=== PATIENT | female | born 1930 | race Caucasian/White ===

== ENCOUNTER 2017-05-21 16:06 | Emergency (ER) | payer MEDICARE, OTHER ==
[~2017-05-21] VITALS: Ht 157.5 cm; Wt 55.0 kg
[~2017-05-21 16:06] MED LIST: ACET1TAB17 PO; COUM2.5T17 PO; DOKTAB2 PO; NICO14DI20 TD; NORCOTAB PO; VITA10002 PO; VITA200015 PO; VITAD1000T PO
[2017-05-21] MEDS ORDERED: TORS10TA3 (16:28)
[2017-05-21] MEDS ORDERED: methylPREDNISolone INJ 40 MG/1 ML VIAL (J2920) IV ONE (18:00)
[2017-05-21] MEDS ORDERED: FAMOTIDINE IV BAG 20 MG in APPROPRIATE DILUENT 1 EA IV ONE (18:00)
[2017-05-21 18:48] VITALS: BP 171/79
[2017-05-21] MEDS ORDERED: PRED20TA PO (18:52)
[2017-05-21] MEDS ORDERED: BENA25CA4 PO (18:52)
[2017-05-21] MEDS ORDERED: PEPC1TAB4 PO (18:53)
== END 2017-05-21 19:01 | disposition home or self-care (01) ==
LOC: EDBD 16:06 → M ED 16:06
DX: S21.251A Open bite of right back wall of thorax without penetration into thoracic cavity, initial encounter (principal); S21.159A Open bite of unspecified front wall of thorax without penetration into thoracic cavity, initial encounter; S41.151A Open bite of right upper arm, initial encounter; S41.152A Open bite of left upper arm, initial encounter; S71.151A Open bite, right thigh, initial encounter; X58.XXXA Exposure to other specified factors, initial encounter; Y92.89 Other specified places as the place of occurrence of the external cause; Y99.9 Unspecified external cause status; Y93.9 Activity, unspecified; Z79.899 Other long term (current) drug therapy
CPT/HCPCS: 96365; 96375; 99283; J2920

== ENCOUNTER → 2017-07-10 | Outpatient (CLI) | payer MEDICARE, OTHER ==
[~2017-07-10] MED LIST changes: +BENA25CA4 PO; +PEPC1TAB4 PO; +PRED20TA PO; +TORS10TA3
--- NOTE | 2017-07-10 12:28 | REP ---
LUMBAR SPINE, FIVE VIEWS: HISTORY: Contusion. There is no acute fracture or subluxation. The lumbar intervertebral discs are decreased in height consistent with disc degeneration. Osteophytes are present on L2-4. There is narrowing of the L5-S1 facet joints. The bony structure is osteopenic. IMPRESSION: Degenerative change as described above. Signed by Gorge Dunn MD 07/10/2017 12:37 P
--- NOTE | 2017-07-10 12:29 | REP ---
LEFT HIP, TWO VIEWS: HISTORY: Contusion. There is no acute fracture or dislocation. There is narrowing of the joint space. The bony structure is osteopenic. IMPRESSION: There is no acute fracture or dislocation. Signed by Gorge Dunn MD 07/10/2017 12:37 P
== END ==
LOC: M WUC 11:25
PROVIDERS: ATTEND Physician Assistant
DX: S70.02XA Contusion of left hip, initial encounter (principal); S30.0XXA Contusion of lower back and pelvis, initial encounter; X58.XXXA Exposure to other specified factors, initial encounter; Y93.9 Activity, unspecified; Y92.9 Unspecified place or not applicable; Y99.8 Other external cause status

== ENCOUNTER → 2017-11-07 | Outpatient (REF) | payer MEDICARE, OTHER ==
[2017-11-07 17:02] LABS: VITAMIN B12 LEVEL 546 PG/ML (247-911)
== END ==
LOC: M LAB REF 16:22
DX: D51.9 Vitamin B12 deficiency anemia, unspecified (principal)
CPT/HCPCS: 82607

== ENCOUNTER → 2017-12-10 | Outpatient (REF) | payer MEDICARE, OTHER | LOC: M LAB REF 13:24 | DX: N39.3 Stress incontinence (female) (male) (principal) | CPT/HCPCS: 87086 ==

== ENCOUNTER 2018-08-25 14:27 | Observation (INO) | payer MEDICARE, OTHER ==
[~2018-08-25] VITALS: Ht 157.5 cm; Wt 56.3 kg
[~2018-08-25 14:27] MED LIST changes: -ACET1TAB17 PO; +ACET1TAB55 PO; -PEPC1TAB4 PO; +PEPC1TAB5 PO; -TORS10TA3; +TORS10TA3 PO
[2018-08-25] MEDS ORDERED: ACETAMINOPHEN TAB 650MG DOSE (2X325MG) PO ONE (16:15)
[2018-08-25] MEDS ORDERED: NS 1,000 ML IV SCH (17:34)
[2018-08-25] MEDS ORDERED: fentaNYL 100 MCG/2 ML INJECTION (J3010) IV ONE ×3 (17:45→19:30)
--- NOTE | 2018-08-25 18:31 | REP ---
Left shoulder two views: There is inferior anterior dislocation of the humeral head. No fracture is identified on these two views. The acromioclavicular joint is widened. Electronically Signed by Fercho James MD 08/25/2018 06:22 P
[2018-08-25] MEDS: PROPOFOL 200 MG/20 ML VIAL IV PRN ×2 (18:32→20:02)
--- NOTE | 2018-08-25 19:19 | REP ---
Portable left shoulder, single AP view, 06:56 p.m.: There is inferior anterior dislocation of the humeral head. Electronically Signed by Fercho James MD 08/25/2018 07:11 P
[2018-08-25] MEDS ORDERED: PROPOFOL 200 MG/20 ML VIAL IV PRN (19:30)
[2018-08-25] MEDS ORDERED: ACETAMINOPHEN TAB 650MG DOSE (2X325MG) PO PRN (21:00)
[2018-08-25] MEDS: SENOKOT S TAB PO SCH (21:00)
[2018-08-25] MEDS ORDERED: TORSEMIDE 10 MG TABLET PO PRN (21:00)
--- NOTE | 2018-08-25 21:13 | REP ---
Left shoulder, 08:14 p.m., two views, post reduction: The humeral head dislocation has been satisfactorily reduced and the humeral head is now in satisfactory position in relation to the glenoid. There are faintly visible calcifications along the lateral margin of the humeral head. Electronically Signed by Fercho James MD 08/25/2018 09:06 P
--- NOTE | 2018-08-25 21:25 | HPE ---
DATE OF ADMISSION: 08/25/2018 PRIMARY CARE PROVIDER: Dr. Morgan ATTENDING PHYSICIAN: Dr. Meza CHIEF COMPLAINT: Left shoulder pain. HISTORY OF THE PRESENT ILLNESS: The patient is an 88-year-old white female without significant past medical history who came to the hospital for evaluation of left shoulder pain. History is provided by herself as well as by her neighbor. Per her neighbor, she was doing fine until today. She was walking with her dog and then she fell, and she complained of a lot of pain in her left shoulder. She called her neighbor and neighbor called 911, and she was brought to the emergency room (ER) here for further evaluation. In the ER she had an x-ray done, which demonstrated she had a left shoulder dislocation. Initially ER attending, Dr. Mehdi Gramajo, tried to do a reduction, which failed, and then orthopedics was called and she had successful left shoulder dislocation reduction externally under general anesthesia. Due to this reason, she received several doses of pain medication as well as intravenous (IV) sedation, so medicine service was called for admission. REVIEW OF SYSTEMS: Denies fever. No chills. No headache. No blurred vision. No shortness of breath. No chest pain. No abdominal pain. No diarrhea. No tingling, numbness, weakness in the arms or lower extremities. All other systems were reviewed but negative. PAST MEDICAL HISTORY: Chronic right lower extremity edema. PAST SURGICAL HISTORY: Right hip replacement. Hysterectomy. Bilateral cataract surgery. ALLERGIES: Allergic to PENICILLIN. MEDICATIONS: - torsemide 10 mg by mouth daily FAMILY HISTORY: Reviewed. Both parents . There is no family history of coronary artery disease or diabetes. PHYSICAL EXAMINATION: VITAL SIGNS: Temperature 98.2 and heart rate 81, respirations 16, blood pressure 180/86, oxygen saturation 100% on 2 liters of oxygen supplement. GENERAL: She is awake, alert, oriented times three. She is not in acute distress. HEENT: Atraumatic. Pupils are equal, round, reactive to light. No jaundice. Extraocular muscles intact. Ears, nose and throat are normal. Mouth: Mucosa a little bit dry. NECK: No jugular venous distention (JVD), no bruits. LUNGS: Clear. No crackles, no wheezing. HEART; S1, S2, regular. No murmur. ABDOMEN: Soft. Bowel sounds positive. Nontender. LOWER EXTREMITIES: She has swelling in the right lower extremity, which is chronic per the patient as well as her healthcare proxy. NEUROLOGIC: Nonfocal. SKIN: No rash. 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 ASSESSMENT AND PLAN: An 88-year-old female who presents to the hospital with left shoulder pain after a fall. X-ray demonstrated left shoulder dislocation, which was reduced in the ER. She will be admitted for observation. Will get a physical therapy (PT), occupational therapy (OT) evaluation in the morning to decide whether she can go home or if she needs short-term rehab. She is DO NOT RESUSCITATE, DO NOT INTUBATE. MTDD
[2018-08-25] MEDS: PERCOCET 5MG/325MG TAB PO PRN (21:51)
--- NOTE | 2018-08-25 21:53 | ER ---
ER CONSULTATION: DATE OF SERVICE: 08/25/2018 CHIEF COMPLAINT: Left shoulder pain and deformity. HISTORY OF PRESENT ILLNESS The patient states that she was pulled by some dogs earlier today, isolated injury to her left shoulder. She is somewhat confused and disoriented which apparently is at her baseline. She is brought in by her healthcare proxy who is also source of information. The patient states that she only has pain and issues with her left shoulder at this time. She does have history of a left shoulder surgery decades ago. 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 Certainly, it is very painful; where it is usually she has no pain. PAST SURGICAL HISTORY: As above. EXAMINATION: She is awake and alert. She is responsive and she is answering questions, resting comfortably in bed. Focused examination of her left shoulder: There is deformity consistent with anterior inferior shoulder dislocation with the humeral head palpable in the axilla. There is a large healed deltopectoral incision which appears very old and is well healed. She has decreased sensation to light touch in the axillary nerve distribution. Otherwise she is fully neurovascular intact throughout the left upper extremity radial, median, ulnar nerve distribution with 2+ radial pulse. She is able to make a full composite fist and is able to bend and extend her elbow freely. Her left forearm, wrist, hand and elbows is grossly atraumatic and nontender. X-rays of the left shoulder show anterior inferior glenohumeral dislocation. ASSESSMENT: Left shoulder anterior inferior glenohumeral dislocation. PLAN: Dr. Gramajo from the emergency department called me after they had already attempted to close reduction under propofol sedation. This was done by himself and one of the other emergency room physicians. They were unable to achieve closed reduction and so they did contact me to evaluate the patient which I came in and promptly did. I discussed the risks and benefits of going forward with another attempt at closed reduction here the emergency department with the patient and her caregiver. All of their questions were answered and they did sign the consent for the procedure in my presence. I did discuss explicitly the risk of fracture and redislocation and other complications and they did understand. Conscious sedation under propofol as provided by Dr. Gramajo and I was able to achieve a closed reduction which felt quite stable with a little difficulty using a modified Milch technique. Post reduction axillary lateral and AP x-rays showed satisfactory reduction of the glenohumeral joint. She was placed in a sling and upon emerging from sedation she did feel much more comfortable in her left upper extremity. The shoulder pain and discomfort was significantly decreased and she remained somewhat insensate in the axillary nerve distribution but otherwise 2+ radial pulse and neurovascularly intact distally. PLAN: Plan at this time is to monitor her until she is fully cleared from the sedation. At the point this may be discharged home with a sling and activity restrictions to protect the left shoulder; understand that it is certainly much more prone to instability and redislocation at this time. Followup with orthopedic clinic in the next few days for repeat examination or followup earlier as needed. All of te patient and the caregivers questions were answered and they are satisfied with treatment at this time.
[2018-08-25] MEDS ORDERED: cloNIDine 0.2 MG TAB PO ONE (22:00)
[2018-08-25 22:55] VITALS: BP 186/98
[2018-08-26] MEDS ORDERED: **hydrALAZINE HCL** 25 MG TAB PO ONE (05:45)
[2018-08-26 06:00] VITALS: BP 190/98
[2018-08-26] MEDS: SENOKOT S TAB PO SCH ×3 (07:57→21:03)
[2018-08-26 08:40] LABS: HEMATOCRIT 41.7 % (36.0-47.0); HEMOGLOBIN 13.7 g/dl (12.0-15.5); MEAN CORPUSCULAR HEMOGLOBIN 32.3 pg (27.0-33.0); MEAN CORPUSCULAR HGB CONC 32.9 g/dl (32.0-36.5); MEAN CORPUSCULAR VOLUME 98.3 fl (80.0-96.0); PLATELET COUNT, AUTOMATED 142 10^3/uL (150-450); RED BLOOD COUNT 4.24 10^6/uL (4.00-5.40); WHITE BLOOD COUNT 8.4 10^3/uL (4.0-10.0)
[2018-08-26 08:55] LABS: CALCIUM LEVEL 8.6 MG/DL (8.8-10.2); CREATININE FOR GFR 0.95 MG/DL (0.55-1.30); GLOMERULAR FILTRATION RATE 59.2 (>32); POTASSIUM SERUM 4.2 MEQ/L (3.5-5.1); TOTAL PROTEIN 5.6 GM/DL (6.4-8.2)
--- NOTE | 2018-08-26 10:46 | REP ---
Duplex extremity venous ultrasound: Bilateral lower extremity. History: Edematous legs. Findings: The deep veins are anechoic and fully compressible from the groin to the popliteal fossa in the left and right lower extremity. Color flow imaging is homogeneous. Spectral Doppler interrogation demonstrates intact respiratory variation in flow and normal manual augmentation of flow. There is no evidence of deep vein thrombosis. Impression: Negative bilateral lower extremity duplex venous ultrasound. No evidence of deep vein thrombosis. Electronically Signed by Yury Elise MD 08/26/2018 10:37 A
[2018-08-26] MEDS: ENOXAPARIN 30 MG/0.3 ML SYR (J1650) SC SCH (10:55)
[2018-08-26] MEDS: PERCOCET 5MG/325MG TAB PO PRN ×2 (10:56→19:00)
--- NOTE | 2018-08-26 12:23 | IPNPDOC ---
Subjective Date Seen The patient was seen on 08/26/18. Subjective Chief Complaint/HPI Patient seen and examined at the bedside. States that she is feeling relatively well and that her shoulder joint is sore but the pain is manageable. Objective Physical Examination General Exam: Positive: Alert, Cooperative, No Acute Distress ENT Exam: Positive: Atraumatic, Mucous membr. moist/pink Neck Exam: Negative: JVD Chest Exam: Positive: Clear to auscultation, Normal air movement Heart Exam: Positive: Rate Normal, Normal S1, Normal S2 Abdomen Exam: Positive: Soft; Negative: Tenderness Extremity Exam: Positive: Other (Left shoulder in a sling. ROM limited 2/2 recent dislocation/closed reduction. Extremity neurovascularly intact distally.); Negative: Tenderness, Swelling Assessment /Plan Plan/VTE VTE Prophylaxis Ordered?: Yes Plan Left Shoulder Joint Dislocation s/p Closed Reduction Orthopedic Surgery on board Pain meds as ordered PT ordered for functional optimization Leg Swelling 2/2 Chronic Lymphedema U/S of the Lower extremities negative for DVT Torsemide prn DVT Prophylaxis Lovenox SC VS, I&O, 24H, Fishbone Vital Signs/I&O Vital Signs Date Time Temp Pulse Resp B/P (MAP) Pulse Ox O2 Delivery O2 Flow Rate FiO2 08/26/18 11:26 17 Room Air 08/26/18 06:25 190/98 08/26/18 06:00 97.3 84 99 08/25/18 18:37 2.0 I&O- Last 24 Hours up to 6 AM 08/26/18 06:00 Intake Total 720 ml Balance 720 ml Laboratory Data 24H LABS Laboratory Tests 2 08/26/18 08:19: Nucleated Red Blood Cells % (auto) 0.2H, Anion Gap 6L, Glomerular Filtration Rate 59.2, Blood Urea Nitrogen 17, Creatinine 0.95, Sodium Level 140, Potassium Level 4.2, Chloride Level 105, Carbon Dioxide Level 29, Calcium Level 8.6L, Aspartate Amino Transf (AST/SGOT) 30, Alanine Aminotransferase (ALT/SGPT) 21, Alkaline Phosphatase 87, Total Bilirubin 1.0, Total Protein 5.6L, Albumin 3.0L, Albumin/Globulin Ratio 1.15 CBC/BMP Laboratory Tests 08/26/18 08:19 Red Blood Count 4.24, Mean Corpuscular Volume 98.3 H, Mean Corpuscular Hemoglobin 32.3, Mean Corpuscular Hemoglobin Concent 32.9, Red Cell Distribution Width 12.9, Calcium Level 8.6 L, Aspartate Amino Transf (AST/SGOT) 30, Alanine Aminotransferase (ALT/SGPT) 21, Alkaline Phosphatase 87, Total Bilirubin 1.0, Total Protein 5.6 L, Albumin 3.0 L LUIS MIRZA MD Aug 26, 2018 12:23
[2018-08-26 14:00] VITALS: BP 162/72
--- NOTE | 2018-08-26 15:14 | REP ---
Left elbow single oblique view: The study is suboptimal. Complete left elbow series is recommended if the patient's clinical condition will permit. Electronically Signed by Fercho James MD 08/25/2018 08:59 P
[2018-08-26 22:00] VITALS: BP 152/70
[2018-08-27 06:00] VITALS: BP 176/88
[2018-08-27] MEDS: PERCOCET 5MG/325MG TAB PO PRN (08:06)
[2018-08-27] MEDS ORDERED: amLODIPine 5 MG TAB PO SCH (09:00)
[2018-08-27] MEDS: SENOKOT S TAB PO SCH (09:00)
[2018-08-27 10:10] VITALS: BP 129/86
[2018-08-27] MEDS: ENOXAPARIN 30 MG/0.3 ML SYR (J1650) SC SCH (10:11)
[2018-08-27 10:20] VITALS: BP 129/86
[2018-08-27] MEDS ORDERED: AMLO5TAB6 PO (11:38)
[2018-08-27] MEDS ORDERED: PERCOCET PO (11:38)
--- NOTE | 2018-08-27 12:37 | DS.PDOC ---
Discharge Summary General Date of Admission Aug 25, 2018 at 20:51 Date of Discharge 08/27/18 Specialist/Consultants Involve: JAKE PERERA MD Discharge Summary PROCEDURES PERFORMED DURING STAY: Closed reduction of left shoulder joint dislocation by Dr. Perera of Orthopedic Surgery ADMITTING/DISCHARGE DIAGNOSES: Left shoulder joint dislocation status post closed reduction Hypertension COMPLICATIONS/CHIEF COMPLAINT: Dislocation Of Left Shoulder Joint. HISTORY OF PRESENT ILLNESS: . 88-year-old female with past medical history of chronic lower extremity edema presented to the ER after she felt left shoulder pain following a mechanical fall when walking her dogs. The patient denied any acute complaints of trauma to the head, headache, fevers, chills, chest pain, palpitations, abdominal pain, jerking activity, or any prodromal symptoms that was suggestive syncopal event. In the ER, the patient was noted to have a dislocated left shoulder, and attempts made to reduce the shoulder in the ER were unsuccessful. Orthopedic surgery was contacted, and performed a closed reduction of the patient's left shoulder. The patient was admitted to the hospitalist service for observation. During hospitalization, the patient's pain was well managed. Of note, the patient was noted to be significantly hypertensive despite not being in pain. The patient was started on 5 mg of Norvasc. I did discuss the risks associated with taking Norvasc, and asked that the patient follow-up with her primary care physician within 7 days for follow-up. The patient has been cleared by physical therapy to return home. At this time, the patient has been instructed to follow- up with primary care physician within 7 days, and with orthopedic surgery as indicated. Lastly, patient has been advised to return to the ER for any acute emergencies. DISCHARGE MEDICATIONS: Please see below. ALLERGIES: Please see below. PHYSICAL EXAMINATION ON DISCHARGE: VITAL SIGNS: Please see below. General Exam: Positive: Alert, Cooperative, No Acute Distress ENT Exam: Positive: Atraumatic, Mucous membr. moist/pink Neck Exam: Negative: JVD Chest Exam: Positive: Clear to auscultation, Normal air movement Heart Exam: Positive: Rate Normal, Normal S1, Normal S2 Abdomen Exam: Positive: Soft; Negative: Tenderness Extremity Exam: Positive: Other (Left shoulder in a sling. ROM limited 2/2 recent dislocation/closed reduction. Extremity neurovascularly intact dista lly.); Negative: Tenderness, Swelling LABORATORY DATA: Please see below. IMAGING: Duplex extremity venous ultrasound: Bilateral lower extremity. History: Edematous legs. Findings: The deep veins are anechoic and fully compressible from the groin to the popliteal fossa in the left and right lower extremity. Color flow imaging is homogeneous. Spectral Doppler interrogation demonstrates intact respiratory variation in flow and normal manual augmentation of flow. There is no evidence of deep vein thrombosis. Impression: Negative bilateral lower extremity duplex venous ultrasound. No evidence of deep vein thrombosis. Left elbow single oblique view: The study is suboptimal. Complete left elbow series is recommended if the patient's clinical condition will permit. Left shoulder two views: There is inferior anterior dislocation of the humeral head. No fracture is identified on these two views. The acromioclavicular joint is widened. PROGNOSIS: Fair ACTIVITY: As tolerated. DIET: 2 g low sodium diet DISCHARGE PLAN: DISPOSITION: . Home DISCHARGE INSTRUCTIONS: At this time, the patient has been instructed to follow-up with primary care physician within 7 days, and with orthopedic surgery as indicated. Lastly, patient has been advised to return to the ER for any acute emergencies. DISCHARGE CONDITION: Stable. TIME SPENT ON DISCHARGE: Greater than 30 minutes. Vital Signs/I&Os Vital Signs Date Time Temp Pulse Resp B/P (MAP) Pulse Ox O2 Delivery O2 Flow Rate FiO2 08/27/18 10:20 97.8 84 18 129/86 (100) 97 Room Air 08/25/18 18:37 2.0 I&O- Last 24 Hours up to 6 AM 08/27/18 06:00 Intake Total 1260 ml Balance 1260 ml Discharge Medications Scheduled Amlodipine Besylate (Amlodipine Besylate) 5 Mg Tab, 5 MG PO DAILY Scheduled PRN Oxycodone/Acetaminophen (Percocet 5MG/325MG Tablet) 1 Tab Tab, 1 TAB PO Q4HP PRN for MODERATE PAIN (PS 5-7) Torsemide (Torsemide) 10 Mg Tab, 10 MG PO DAILY PRN for SWELLING, (Reported) Allergies Coded Allergies: Penicillins (Unverified Allergy, Unknown, UNKNOWN , 11/07/15) LUIS MIRZA MD Aug 27, 2018 12:37
== END 2018-08-27 12:45 | disposition home health service (06) ==
LOC: EDBD 14:27 → M ED 14:27 → EDSEX 14:27 → M ED INP 20:51 → M MS5PR 22:55
PROVIDERS: ADMIT Hospitalist; ATTEND Internal Medicine
DX: S43.005A Unspecified dislocation of left shoulder joint, initial encounter (principal); W19.XXXA Unspecified fall, initial encounter; Y93.K1 Activity, walking an animal; Y99.8 Other external cause status; Y92.89 Other specified places as the place of occurrence of the external cause; R60.0 Localized edema; I10 Essential (primary) hypertension; Z79.899 Other long term (current) drug therapy; Z88.0 Allergy status to penicillin
CPT/HCPCS: 23655; 36415; 73020; 73030; 73070; 80053; 85027; 93041; 93970; 94760; 96372; 96374; 96375; 96376; 97116; 97161; 97165; 97530; 97535; 99285; G8978; G8979; G8980; J1650; J3010

== ENCOUNTER 2019-06-13 19:47 | Inpatient (IN) | payer MEDICARE, OTHER ==
[~2019-06-13] VITALS: Ht 157.5 cm; Wt 54.0 kg
[~2019-06-13 19:47] MED LIST changes: +AMLO5TAB6 PO; +CYAN100049 PO; +HYDR-3715 PO; -NORCOTAB PO; +PERCOCET PO; -VITA10002 PO
[2019-06-13 20:23] LABS: BASO # 0.1 10^3/uL (0.0-0.2); BASO % 0.7 % (0.0-1.0); EOS # 0.1 10^3/uL (0.0-0.5); EOS % 0.8 % (0.0-3.0); HEMATOCRIT 41.6 % (36.0-47.0); HEMOGLOBIN 13.8 g/dl (12.0-15.5); LYMPH # 1.5 10^3/uL (1.5-5.0); LYMPH % 20.5 % (24.0-44.0); MEAN CORPUSCULAR HEMOGLOBIN 32.9 pg (27.0-33.0); MEAN CORPUSCULAR HGB CONC 33.2 g/dl (32.0-36.5); MEAN CORPUSCULAR VOLUME 99.3 fl (80.0-96.0); MONO # 0.6 10^3/uL (0.0-0.8); MONO % 8.2 % (0.0-5.0); NEUTROPHILS % 68.4 % (36.0-66.0); PLATELET COUNT, AUTOMATED 173 10^3/uL (150-450); RED BLOOD COUNT 4.19 10^6/uL (4.00-5.40); WHITE BLOOD COUNT 7.3 10^3/uL (4.0-10.0)
[2019-06-13 20:33] LABS: INR 1.24; PROTHROMBIN TIME 15.3 SECONDS (11.8-14.0)
[2019-06-13] MEDS ORDERED: MORPHINE 2 MG/ML 1ML SYRINGE (J2270) IV ONE (20:45)
--- NOTE | 2019-06-13 20:51 | REPVR ---
EXAM: CT Head Without Contrast EXAM DATE/TIME: 06/13/2019 8:00 PM CLINICAL HISTORY: 89 years old, female; Pain; Other: Fall; Additional info: Fall, on eloquis TECHNIQUE: Imaging protocol: Computed tomography of the head without contrast. Radiation optimization: All CT scans at this facility use at least one of these dose optimization techniques: automated exposure control; mA and/or kV adjustment per patient size (includes targeted exams where dose is matched to clinical indication); or iterative reconstruction. COMPARISON: No relevant prior studies available. FINDINGS: Brain: No intracranial mass, focal mass effect or midline shift. No acute intracranial hemorrhage. Moderate decreased attenuation in periventricular/centrum semiovale white matter. No focal effacement of cortical sulci to indicate acute cortical infarct. Ventricles: Prominent ventricles and CSF spaces suggest parenchymal volume loss. Bones/joints: No calvarial fracture or destructive process. Sinuses: Visualized paranasal sinuses are unremarkable. Mastoid air cells: Mastoid air cells are normally aerated. Orbits: Visualized globes and orbits are unremarkable. Soft tissues: Right forehead focal extracranial soft tissue swelling. IMPRESSION: 1. Right forehead extracranial scalp hematoma 2. No acute intracranial abnormality. 3. 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 Electronically signed by: Frederick Russell On 06/13/2019 20:50:39 PM
--- NOTE | 2019-06-13 20:52 | REPVR ---
EXAM: CT Cervical Spine Without Contrast EXAM DATE/TIME: 06/13/2019 8:00 PM CLINICAL HISTORY: 89 years old, female; Pain; Other: Fall; Additional info: Fall, on eloquis TECHNIQUE: Imaging protocol: Computed tomography images of the cervical spine without contrast. Radiation optimization: All CT scans at this facility use at least one of these dose optimization techniques: automated exposure control; mA and/or kV adjustment per patient size (includes targeted exams where dose is matched to clinical indication); or iterative reconstruction. COMPARISON: CR SPINE LS COMPLETE 07/10/2017 11:45 AM FINDINGS: Vertebrae: No segmental vertebral malalignment. Vertebral body height is maintained at all levels. No acute fracture. No destructive or blastic cervical spine osseous lesion. 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 Spinal canal narrowing is present at C4-5, C5-6 and C6-7 with moderate osseous neural foraminal stenoses also present secondary to uncovertebral arthropathy Soft tissues: Soft tissues show no concerning abnormality or asymmetry. Lungs: Imaged lung apices demonstrate no concerning abnormality. Pleural space: No apical pneumothorax. Mild apical bullous changes. IMPRESSION: No acute fracture or traumatic segmental cervical malalignment. Electronically signed by: Frederick Russell On 06/13/2019 20:51:52 PM
[2019-06-13 20:57] LABS: CALCIUM LEVEL 9.5 MG/DL (8.8-10.2); CREATININE FOR GFR 1.42 MG/DL (0.55-1.30); GLOMERULAR FILTRATION RATE 37.2 (>32); POTASSIUM SERUM 4.1 MEQ/L (3.5-5.1); THYROID STIMULATING HORMONE 4.69 uIU/ML (0.358-3.740)
[2019-06-13] MEDS ORDERED: POTA10CA32 PO (21:52)
[2019-06-13] MEDS ORDERED: ELIQ5TAB PO (21:52)
[2019-06-13] MEDS ORDERED: TORS10TA3 PO ×2 (21:52)
[2019-06-13] MEDS ORDERED: MORPHINE 4 MG/ML 1ML VIAL/SYRINGE (J2270) IV ONE (22:45)
[2019-06-14] MEDS ORDERED: MOM 30ML SUSPENSION UDC PO PRN (00:30)
[2019-06-14] MEDS ORDERED: MAALOX 30 ML SUSP *UDC PO PRN (00:30)
[2019-06-14 00:39] VITALS: BP 139/85
[2019-06-14] MEDS ORDERED: ONDANSETRON 4MG/2ML VIAL (J2405) IV PRN (01:00)
[2019-06-14] MEDS: DOCUSATE SODIUM 100 MG CAP PO SCH ×3 (01:47→21:12)
[2019-06-14] MEDS: PERCOCET 5MG/325MG TAB PO PRN ×3 (01:47→21:12)
--- NOTE | 2019-06-14 02:21 | HPEPDOC ---
General Date of Admission Jun 14, 2019 at 00:24 Date of Service: Jun 14, 2019 Chief Complaint The patient is a 89-year-old female admitted with a reason for visit of Fall From Standing, Olecranon Fx. Source: Patient, RN/MD, Old records, Other (neighbour) Exam Limitations: No limitations Severity: Moderate History of Present Illness 89 year old female was outside today when she bend forward to flower picker her dog who was having a seizure and lost her balance and fell on her right side hitting her right forehead in the concrete side walk and hit her right shoulder, right elbow and right hip. She did not loose consciousness But she could not get up. She had a life alert on the let wrist but could not move her right hand to press it. She yelled for help was heard by the neighbors and EMS was called. In the ED se was found to have right olecranon fracture. SHe complained of severe 10/10 pain in her right elbow, dull throbbing in nature and minor movement was causing severe muscle spasm. No radiation. She also complained of pain in the right shoulder and forehead. She had a CT head and CT C-spine done which were negative for any acute events. Her Shoulder Xray which i reviewed personally did not show any fracture or dislocation. In the right hip Xray which I reviewed personally showed some calcifications in the soft tissue behind the joint ? avulsion of right acetabulum Vs gluteal injetion granuloma. Awaiting official radiology reads . There is no fracture or displacement of hardware. She was admitted for displaced olecranon fracture. Home Medications Scheduled Apixaban (Eliquis) 5 Mg Tablet, 5 MG PO BID, (Reported) Potassium Chloride (Potassium Chloride) 10 Meq Capsule.er, 10 MEQ PO BID, (Reported) Torsemide (Torsemide) 10 Mg Tablet, 20 MG PO DAILY, (Reported) Scheduled PRN Torsemide (Torsemide) 10 Mg Tablet, 10 MG PO QPM PRN for SWELLING LEGS, (Reported) Allergies Coded Allergies: No Known Allergies (Unverified , 06/13/19) Past Medical History Medical History Chronic bilateral venous stasis and lymphedema CKD 3 Hypertension LEft shoulder dislocation in 2017 H/O DVT left lower extremity in january 2019 Surgical History Right HIP Hemiarthroplasty Status post hysterectomy. Status post left shoulder arthroplasty. Status post left wrist surgery. Status post bilateral cataract surgery. Status Post vein stripping Family History Reviewed with patient . Both parents . There is no family history of coronary artery disease or diabetes. Positive Family history of PAD Social History * Smoker: current smoker Alcohol: Denies Drugs: denies A-FIB/CHADSVASC A-FIB History Current/History of A-Fib/PAF?: No Review of Systems Constitutional: Denies: Chills, Fever, Night Sweats Eyes: Denies: Pain, Vision change ENT: Reports: Other Symptoms (pain in fore head); Denies: Head Aches, Ear Pain, Dysphagia Skin: Reports: Breakdown (ulcer on right leg) Pulmonary: Denies: Dyspnea, Cough Cardiovascular: Denies: Chest Pain, Palpitations, Orthopnea, Paroxysmal Noc. Dyspnea, Lt Headedness Gastrointestinal: Denies: Nausea, Vomiting, Abdominal Pain, Diarrhea Genitourinary: Denies: Dysuria, Frequency, Incontinence, Retention Musculoskeletal: Reports: Shoulder Pain, Arm Pain, Joint Pain Physical Examination General Exam: Positive: Alert, Cooperative, Moderate Distress, Other (big bruise on the right forehead) Eye Exam: Positive: PERRLA, Conjunctiva & lids normal, EOMI; Negative: Sclera icteric ENT Exam: Positive: Mucous membr. moist/pink, Pharynx Normal Neck Exam: Positive: Supple; Negative: JVD, thyromegaly Chest Exam: Positive: Clear to auscultation, Normal air movement Heart Exam: Positive: Rate Normal, Regular Rhythm, Normal S1, Normal S2, Murmurs (soft systolic murmur at the base); Negative: Rubs Telemetry: Positive: No significant arrhythmia Abdomen Exam: Positive: Normal bowel sounds, Soft; Negative: Tenderness, Hepatospenomegaly Extremity Exam: Positive: Edema (bilateral), Tenderness; Negative: Clubbing, Cyanosis Skin Exam: Positive: Other skin issue (bilateral venous stais right > left with right superficial venous stasis ulcer. ) Vital Signs Vital Signs Date Time Temp Pulse Resp B/P (MAP) Pulse Ox O2 Delivery O2 Flow Rate FiO2 06/13/19 23:40 16 92 06/13/19 22:04 130/62 (84) 06/13/19 22:02 84 06/13/19 19:58 96.9 Room Air Laboratory Data Labs 24H Laboratory Tests 2 06/13/19 20:07: Bedside Glucose (Misc Panel) 94 06/13/19 20:17: Immature Granulocyte % (Auto) 1.4, White Blood Count 7.3, Red Blood Count 4.19, Hemoglobin 13.8, Hematocrit 41.6, Mean Corpuscular Volume 99.3H, Mean Corpuscular Hemoglobin 32.9, Mean Corpuscular Hemoglobin Concent 33.2, Red Cell Distribution Width 13.4, Platelet Count 173, Neutrophils (%) (Auto) 68.4H, Lymphocytes (%) (Auto) 20.5L, Monocytes (%) (Auto) 8.2H, Eosinophils (%) (Auto) 0.8, Basophils (%) (Auto) 0.7, Neutrophils # (Auto) 5.0, Lymphocytes # (Auto) 1.5, Monocytes # (Auto) 0.6, Eosinophils # (Auto) 0.1, Basophils # (Auto) 0.1, Nucleated Red Blood Cells % (auto) 0.0, Prothrombin Time 15.3H, Prothromb Time International Ratio 1.24, Anion Gap 5L, Glomerular Filtration Rate 37.2, Blood Urea Nitrogen 37H, Creatinine 1.42H, Sodium Level 142, Potassium Level 4.1, Chloride Level 105, Carbon Dioxide Level 32, Calcium Level 9.5, Thyroid Stimulating Hormone (TSH) 4.690H CBC/BMP Laboratory Tests 06/13/19 20:17 Red Blood Count 4.19, Mean Corpuscular Volume 99.3 H, Mean Corpuscular Hemoglobin 32.9, Mean Corpuscular Hemoglobin Concent 33.2, Red Cell Distribution Width 13.4, Neutrophils (%) (Auto) 68.4 H, Lymphocytes (%) (Auto) 20.5 L, Monocytes (%) (Auto) 8.2 H, Eosinophils (%) (Auto) 0.8, Basophils (%) (Auto) 0.7, Neutrophils # (Auto) 5.0, Lymphocytes # (Auto) 1.5, Monocytes # (Auto) 0.6, Eosinophils # (Auto) 0.1, Basophils # (Auto) 0.1, Calcium Level 9.5 Assessment/Plan 89 year old female was outside today when she bend forward to flower picker her dog who was having a seizure and lost her balance and fell on her right side hitting her right forehead in the concrete side walk and hit her right shoulder, right elbow and right hip. She did not loose consciousness But she could not get up. She had a life alert on the let wrist but could not move her right hand to press it. She yelled for help was heard by the neighbors and EMS was called. In the ED se was found to have right olecranon fracture. SHe complained of severe 10/10 pain in her right elbow, dull throbbing in nature and minor movement was causing severe muscle spasm. No radiation. She also complained of pain in the right shoulder and forehead. She had a CT head and CT C-spine done which were negative for any acute events. Her Shoulder Xray which i reviewed personally did not show any fracture or dislocation. In the right hip Xray which I reviewed personally showed some calcifications in the soft tissue behind the joint ? avulsion of right acetabulum Vs gluteal injetion granuloma. Awaiting official radiology reads . There is no fracture or displacement of hardware. She was admitted for displaced olecranon fracture. Displaced olecranon fracture s/p mechanical fall. consulted with Ortho Dr Wooten now placed on sling but will possibly need surgical fixation will hold eliquis in anticipation of surgery pain control with percocet and morphine prn, zofran Medical clearance will get an EKG Hold Eliquis . Cannot be cleared now as on oral anticoagulants. Need to be held 48 hours. H/O DVT in january 2019 as greater than 3 months will hold eliquis but does not need to be on therapeutic dosage of lovenox. will give Lovenox as per dvt prophylaxis dosage. CKD stage 3 sebas continue to monitor Chronic venous stasis and stasis ulcer on the right continue torsemide. Plan / VTE VTE Prophylaxis Ordered?: Yes FARZANEH DUGGAN MD Jun 14, 2019 02:21
[2019-06-14 06:00] VITALS: BP 125/80
[2019-06-14] MEDS: ENOXAPARIN 30 MG/0.3 ML SYR (J1650) SC SCH (09:09)
[2019-06-14] MEDS: TORSEMIDE 10 MG TABLET PO SCH (09:09)
--- NOTE | 2019-06-14 09:17 | REP ---
Clinical: Trauma. Technique: AP, lateral, bilateral oblique views of the right wrist. Findings: Evaluation is severely limited by osteopenia and arthritic degenerative changes including elements of chondrocalcinosis. A nondisplaced ulnar styloid fracture and possible nondisplaced impaction fracture through the distal radial metaphysis cannot be excluded. Clinical correlation and follow up may be warranted. Impression: Limited examination with findings as described above including suspected small non displaced ulnar styloid fracture. The possibility of subtle impaction fracture involving the distal radial metaphysis cannot be excluded. Electronically Signed by Tito Sexton MD 06/14/2019 09:08 A
--- NOTE | 2019-06-14 09:19 | REP ---
Clinical: Trauma. Technique: AP and lateral views of the right humerus. Findings: Age-related osteopenia and degenerative changes are appreciated. The humerus appears intact without fracture. There is a transverse mildly displaced fracture involving the proximal ulna and olecranon process. Smaller subtle fractures at the elbow involving the proximal radius and ulna cannot be excluded. Overlying soft tissue swelling noted. Impression: 1. Humerus appears intact. 2. Proximal ulna/olecranon process fracture Electronically Signed by Tito Sexton MD 06/14/2019 09:11 A
--- NOTE | 2019-06-14 09:23 | REP ---
Clinical: Trauma. Technique: Frontal view of the pelvis with neutral and frog lateral views of the right hip. Findings: Prior hip replacement. Age-related osteopenia and degenerative changes are noted. No obvious acute fracture or dislocation identified. Small bone fragments and calcifications superior to the residual right femur may represent chronic heterotopic ossification although small fracture fragment cannot be excluded. Impression: As above. Electronically Signed by iTto Sexton MD 06/14/2019 09:14 A
--- NOTE | 2019-06-14 09:34 | REP ---
Clinical: Trauma. Fall. Technique: AP, lateral, bilateral oblique views of the right elbow. Findings: Displaced fracture through the proximal ulna and olecranon process with small adjacent fracture fragments and significant soft tissue swelling/hemarthrosis is appreciated. There is a small chip fracture of the coronoid process. No the proximal radius appears intact although subtle injury not be excluded. Impression: Fractures primarily involving the proximal ulna with overlying swelling and hemarthrosis. Smaller more subtle injuries cannot definitively be excluded. Electronically Signed by Tito Sexton MD 06/14/2019 09:25 A
--- NOTE | 2019-06-14 11:22 | CR ---
DATE OF CONSULTATION: 06/14/2019 REASON FOR CONSULTATION: Right elbow pain in an 89-year-old female who took a mechanical fall yesterday. HISTORY OF PRESENT ILLNESS: She is an 89-year-old who lives in [place] independently on her own. She has no other family members apparently. She was walking her dog and went to pick the dog up and fell and landed on to her right side. Apparently no loss of consciousness she describes but she was unable to get herself up difficulty activating her life alert and was assisted by other friends and taken to [facility] and found to have multiple bumps and bruises but a displaced olecranon fracture was noted and I was called for that reason. No other apparent acute fractures are found. She mainly complains of isolated soreness of the right elbow but also the right side of her head where she fell and the right side of her hip where she fell. She did not complain of left upper extremity or lower extremity pains. Again no loss of consciousness and no complaints of numbness or tingling in the lower extremities. PAST MEDICAL HISTORY: Significant for recent treatment for a DVT of the right lower extremity and is on Eliquis, otherwise she has some hypertension and some kidney failure. Orthopedically she has had a dislocated left shoulder treated last year, a right hip fracture treated in [address] Leroy Luevano with a cemented hemiarthroplasty. Other surgical history, she has had a hysterectomy, left wrist surgery, cataract surgery and vein stripping the past. ALLERGIES: No known drug allergies. MEDICATIONS: Lasix for swelling of her legs but also has been on potassium supplements as well as recently on the Eliquis. FAMILY HISTORY: She has 6 siblings 5 of whom have and she has a daughter that she is not in contact with. Both parents have . She does not smoke or drink alcohol excessively. PHYSICAL EXAMINATION: She is an elderly pleasant female. She is alert and oriented today. She has a large scalp hematoma in the right forehead. Temperature 98.5, blood pressure 125/80, pulse 93, respirations 18. Her right upper extremity is in a sling and there is some mild tenderness about the shoulder but there is some swelling and tenderness at the right elbow. Distally she can flex and extend her fingers, abduct and adduct normal sensation with palpable radial pulse, Left upper extremity is benign. She can elevate it up overhead not without pain. Log rolling does not cause any pain or soreness in the left hip. In the right hip there is some mild soreness laterally where she fell but there is some swelling of the right lower extremity consistent with the recent DVT. She can dorsiflex and plantarflex her ankles well. Feet are well perfused and warm. Head CT did not show any acute intracranial pathology. The cervical spine did not show a neck fracture, otherwise her cervical spine is nontender posteriorly. Right hip showed a hemiarthroplasty cemented. No acute fractures. Right wrist did not show acute fracture. Right elbow however showed a displaced olecranon fracture. LABS: Hematocrit was 41.6, white count 7.3 and platelets 173, potassium 4.1, sodium 142, chloride 105, bicarbonate 32, glucose 107, BUN 37, creatinine 1.42, protime 15.3, INR 1.24. IMPRESSION: An elderly female with a displaced right olecranon fracture. She otherwise lives independently even though she is 89-years of age. Options were discussed with her about fixing this or leaving it as it, it is her dominant extremity. It is quite displaced, I think to help her independence it would be best to get this fixed anatomically however there is a risk of doing that including a risk of having surgery including the right of infection, damage to nerves, blood vessels, anesthetic complications amongst others. There is always a risk of the bone not to heal properly or to fail to heal. She understands that risk but she should rather have it fixed so we planned to proceed when she has been off the Eliquis at least 48 hours. She signed the consent today. We hope to get her on the schedule tomorrow and provided she is medially optimized with Dr. Harika Alvarado.
[2019-06-14 14:00] VITALS: BP 117/62
--- NOTE | 2019-06-14 16:09 | IPNPDOC ---
Text Note Date of Service The patient was seen on 06/14/19. NOTE Subjective: Patient complains of right shoulder, right elbow and right hip pain. Moderate in intensity. Patient denies fever, chills, nausea, vomiting, shortness of breath, palpitations, diarrhea or dysuria Objective: General: Frail female with facial and cranial right hematoma HEENT: PERRLA, EOMI, no JVD CV: S1-S2 Lungs: CTA Abdomen: Nontender, nondistended Extremities: Right shoulder on sling, right elbow and right wrist pain on palpation Neuro: Nonfocal Assessment and plan: Patient's 89 years old female was brought to the hospital after mechanical fall. Patient was found to have right elbow fracture with dislocation, right shoulder contusion, right hip contusion, possible ulnar and radial wrist fractures Orthopedic surgical team consulted patient, plan to proceed with right elbow surgery tomorrow. Displaced olecranon fracture s/p mechanical fall. Surgery tomorrow Dr. Wooten follows her Eliquis on hold Medical clearance Patient does not have acute cardiopulmonary diseases. Patient does not have leukocytosis, fever, chills, shortness of breath, no diarrhea or dysuria Blood pressures under control, she has a sinus rhythm on telemetry EKG shows no any acute ischemic changes or arrhythmia continue to hold Eliquis Patient is medically cleared for elbow surgery tomorrow CKD stage 3 will continue to monitor Chronic venous stasis and stasis ulcer on the right continue torsemide VS,Fishbone, I+O VS, Fishbone, I+O Laboratory Tests 06/13/19 20:17 Red Blood Count 4.19, Mean Corpuscular Volume 99.3 H, Mean Corpuscular Hemoglobin 32.9, Mean Corpuscular Hemoglobin Concent 33.2, Red Cell Distribution Width 13.4, Neutrophils (%) (Auto) 68.4 H, Lymphocytes (%) (Auto) 20.5 L, Monocytes (%) (Auto) 8.2 H, Eosinophils (%) (Auto) 0.8, Basophils (%) (Auto) 0.7, Neutrophils # (Auto) 5.0, Lymphocytes # (Auto) 1.5, Monocytes # (Auto) 0.6, Eosinophils # (Auto) 0.1, Basophils # (Auto) 0.1, Calcium Level 9.5 Vital Signs Date Time Temp Pulse Resp B/P (MAP) Pulse Ox O2 Delivery O2 Flow Rate FiO2 06/14/19 14:16 17 06/14/19 06:00 98.5 93 125/80 (95) 94 1.0 06/13/19 19:58 Room Air I&O- Last 24 Hours up to 6 AM 06/14/19 06:00 Intake Total 100 ml Balance 100 ml CONCETTA COTTON DO Jun 14, 2019 16:09
[2019-06-14 16:49] LABS: HEMATOCRIT 35.7 % (36.0-47.0); HEMOGLOBIN 11.7 g/dl (12.0-15.5); MEAN CORPUSCULAR HEMOGLOBIN 32.1 pg (27.0-33.0); MEAN CORPUSCULAR HGB CONC 32.8 g/dl (32.0-36.5); MEAN CORPUSCULAR VOLUME 98.1 fl (80.0-96.0); PLATELET COUNT, AUTOMATED 142 10^3/uL (150-450); RED BLOOD COUNT 3.64 10^6/uL (4.00-5.40); WHITE BLOOD COUNT 7.6 10^3/uL (4.0-10.0)
[2019-06-14 17:15] LABS: CALCIUM LEVEL 7.9 MG/DL (8.8-10.2); CREATININE FOR GFR 1.17 MG/DL (0.55-1.30); GLOMERULAR FILTRATION RATE 46.5 (>32); POTASSIUM SERUM 3.2 MEQ/L (3.5-5.1)
[2019-06-14] MEDS: MORPHINE 4 MG/ML 1ML VIAL/SYRINGE (J2270) IV PRN (18:31)
--- NOTE | 2019-06-14 21:49 | ECGEPIP ---
[facility] Test Date: 2019-06-14 Pat Name: ERIC PAYAN Department: Room: [place] [address] Gender: Female [employer] Operator: PATY : 1930 Requested By: CONCETTA COTTON Order Number: [id number] Reading MD: Mehdi Hernandez Measurements Intervals [place] Rate: 92 P: 38 NC: 145 QRS: 25 QRSD: 81 T: -3 QT: 359 QTc: 445 Interpretive Statements SINUS RHYTHM Nonspecific ST-T abnormalities. No significant change compared with 11/07/2015. Electronically Signed on 06-14-2019 21:49:07 EDT by Mehdi Hernandez
[2019-06-14 22:00] VITALS: BP 131/71
[2019-06-15] VITALS (9 sets, daily range): BP systolic 121–165; BP diastolic 54–74
[2019-06-15] MEDS: MORPHINE 4 MG/ML 1ML VIAL/SYRINGE (J2270) IV PRN (00:28)
[2019-06-15] MEDS: PERCOCET 5MG/325MG TAB PO PRN (06:01)
[2019-06-15 06:37] LABS: HEMATOCRIT 34.6 % (36.0-47.0); HEMOGLOBIN 11.1 g/dl (12.0-15.5); MEAN CORPUSCULAR HEMOGLOBIN 31.2 pg (27.0-33.0); MEAN CORPUSCULAR HGB CONC 32.1 g/dl (32.0-36.5); MEAN CORPUSCULAR VOLUME 97.2 fl (80.0-96.0); PLATELET COUNT, AUTOMATED 136 10^3/uL (150-450); RED BLOOD COUNT 3.56 10^6/uL (4.00-5.40); WHITE BLOOD COUNT 6.8 10^3/uL (4.0-10.0)
[2019-06-15 06:58] LABS: CALCIUM LEVEL 8.6 MG/DL (8.8-10.2); CREATININE FOR GFR 1.23 MG/DL (0.55-1.30); GLOMERULAR FILTRATION RATE 43.9 (>32); MAGNESIUM LEVEL 2.4 MG/DL (1.8-2.4); POTASSIUM SERUM 3.7 MEQ/L (3.5-5.1)
[2019-06-15] MEDS ORDERED: PROPOFOL 200 MG/20 ML VIAL As Ordered ONE (07:53)
[2019-06-15] MEDS ORDERED: LIDOCAINE 2% INJ 100 MG/5 ML SDV (FOR ANES.) As Ordered ONE (07:54)
[2019-06-15] MEDS ORDERED: ROCURONIUM BROMIDE 50 MG/5 ML VIAL As Ordered ONE (07:54)
[2019-06-15] MEDS ORDERED: dexameTHASONE 4 MG/ML 1ML VIAL (J1100) As Ordered ONE (07:58)
[2019-06-15] MEDS ORDERED: ONDANSETRON 4MG/2ML VIAL (J2405) As Ordered ONE (07:58)
[2019-06-15] MEDS: TORSEMIDE 10 MG TABLET PO SCH (08:23)
[2019-06-15] MEDS: LR 1,000 ML IV SCH (08:23)
[2019-06-15] MEDS: DOCUSATE SODIUM 100 MG CAP PO SCH ×3 (08:23→21:32)
[2019-06-15] MEDS: ENOXAPARIN 30 MG/0.3 ML SYR (J1650) SC SCH (08:23)
[2019-06-15] MEDS ORDERED: fentaNYL 250 MCG/5 ML INJECTION (J3010) As Ordered ONE (09:04)
[2019-06-15] MEDS ORDERED: ceFAZolin 1GM INJ (J0690 PER 500MG) As Ordered ONE ×3 (09:06→09:47)
[2019-06-15] MEDS ORDERED: POTASSIUM CHLORIDE 10 MEQ SR TABLET PO ONE (09:15)
[2019-06-15] MEDS ORDERED: SUGAMMADEX SODIUM 500 MG/5 ML VIAL (BRIDION) As Ordered ONE (10:02)
[2019-06-15] MEDS ORDERED: PHENYLephrine HCL 500 MCG/5 ML (100MCG/ML) SYRINGE (J2370) As Ordered ONE (10:40)
[2019-06-15] MEDS ORDERED: ONDANSETRON 4MG/2ML VIAL (J2405) IV PRN (11:30)
[2019-06-15] MEDS ORDERED: fentaNYL 100 MCG/2 ML INJECTION (J3010) IV PRN (11:30)
[2019-06-15] MEDS ORDERED: LR 1,000 ML IV SCH (11:30)
[2019-06-15] MEDS ORDERED: NORCO, ANEXSIA 5/325MG TABLET (HYDROcodone/ACETAMINOPHEN) PO PRN (11:30)
--- NOTE | 2019-06-15 11:33 | REP ---
C-ARM VIEWS RIGHT ELBOW: Eight C-arm views right elbow performed. Two pins are seen in the olecranon with cerclage wiring. The structures appear well aligned. Fluoroscopy time is 15 seconds. Electronically Signed by Fercho Eugene MD 06/15/2019 11:44 A
[2019-06-15] MEDS: ACETAMINOPHEN TAB 650MG DOSE (2X325MG) PO PRN ×2 (16:45→21:52)
--- NOTE | 2019-06-15 17:56 | RO ---
DATE OF PROCEDURE: 06/15/2019 PREOPERATIVE DIAGNOSIS: 1. Displaced right olecranon fracture. 2. Right nondisplaced distal radius fracture. POSTOPERATIVE DIAGNOSIS: 1. Displaced right olecranon fracture. 2. Right nondisplaced distal radius fracture. OPERATIVE PROCEDURE: Open reduction, internal fixation of right displaced olecranon fracture with pinning and [id number] cerclage wire technique. SURGEON: Augustina Baron MD EMERGENCY SPILL RESPONSE TECHNICIAN: Mr. Abdiel Hammer ANESTHESIA: General endotracheal tube COMPLICATIONS: None. ESTIMATED BLOOD LOSS: 75 mL SPECIMENS: None. DESCRIPTION OF PROCEDURE: Antibiotics were given intravenously preoperatively and successful general endotracheal tube anesthetic was established. No tourniquet was utilized. The right upper extremity area was then carefully prepped and draped in the usual sterile fashion. After appropriate time-out, a longitudinal incision was made posteriorly superficially. Bovie cautery was used to coagulate crossing vessels. She had a large amount of grape-jelly like hematoma that was evacuated with copious amount of sterile saline irrigant solution exposing the underlying fracture site into the elbow joint. The fracture edges were carefully identified and an open anatomic reduction was then performed and held with a point of reduction forceps from the small fragment side. Two K-wires were then placed across the fracture site extending anterograde beginning at the olecranon tip. Fluoroscopic imaging using mini-C-Arm was used to help direct the pins. Once they were in good position, a small drill hole was made distally in the ulna and then an 18-gauge cerclage wire passed through that hole in the ulna, then it was wrapped in a [id number] fashion around the two K-wires and then each limb of the gelryc-[id number] construct was tightened in a clockwise direction with the jet wire recovery advocate securing the fracture site nicely with excellent stability in flexion and extension, and there was no gapping at the fracture site. Fluoroscopic imaging at this point confirmed we had good reduction and good placement of the hardware. The wires were cut short after bending the tips and then turned, and then buried underneath the triceps muscle fascia. The wire knots were carefully buried as best as possible against the bone. We copiously irrigated and then closed the deep subdermal tissues with interrupted #2-0 PDS sutures, skin was closed with neeru, covered by an Adaptic dry sterile bulky dressing and an Jorge wrap. Then she was placed under a sling, and then awakened from general endotracheal anesthesia after having tolerated the procedure well and transferred to the recovery room in stable condition. There were no intraoperative complications. Mr. Abdiel Hammer was critical to the success of this operative procedure by helping with appropriate soft tissue retraction, helped to manipulate the arm and the fracture site as needed so I could perform the operation smoothly, efficiently and safely, helped prepare the patient amongst many other tasks.
[2019-06-15] MEDS: ceFAZolin SOD 1 GM in D5W MINI-BAG PLUS 50 ML IV SCH (18:19)
--- NOTE | 2019-06-15 19:20 | IPNPDOC ---
Text Note Date of Service The patient was seen on 06/15/19. NOTE Subjective: Patient tolerates procedure well. Patient denies fever, chills, na usea, vomiting, shortness of breath, palpitations, diarrhea or dysuria Objective: General: Frail female with facial and cranial right hematoma HEENT: PERRLA, EOMI, no JVD CV: S1-S2 Lungs: CTA Abdomen: Nontender, nondistended Extremities: Right shoulder on sling, right elbow and right wrist pain on palpation Neuro: Nonfocal Assessment and plan: Patient's 89 years old female was brought to the hospital after mechanical fall. Patient was found to have right elbow fracture with dislocation, right shoulder contusion, right hip contusion, possible ulnar and radial wrist fractures Orthopedic surgical team consulted patient, today open reduction, internal fixation of right displaced olecranon fracture with pinning was done Displaced olecranon fracture s/p mechanical fall. Surgery was done successfully today Dr. Wooten follows her Eliquis on hold for now CKD stage 3 will continue to monitor Chronic venous stasis and stasis ulcer on the right continue torsemide VS,Fishbone, I+O VS, Fishbone, I+O Laboratory Tests 06/15/19 05:59 Red Blood Count 3.56 L, Mean Corpuscular Volume 97.2 H, Mean Corpuscular Hemoglobin 31.2, Mean Corpuscular Hemoglobin Concent 32.1, Red Cell Distribution Width 13.7, Calcium Level 8.6 L Vital Signs Date Time Temp Pulse Resp B/P (MAP) Pulse Ox O2 Delivery O2 Flow Rate FiO2 06/15/19 11:30 98.4 73 18 161/70 (100) 100 2 06/13/19 19:58 Room Air I&O- Last 24 Hours up to 6 AM 06/15/19 06:00 Intake Total 480 ml Output Total 700 ml Balance -220 ml CONCETTA COTTON DO Jun 15, 2019 19:20
[2019-06-16] MEDS: PERCOCET 5MG/325MG TAB PO PRN ×2 (00:37→12:45)
[2019-06-16] MEDS: ceFAZolin SOD 1 GM in D5W MINI-BAG PLUS 50 ML IV SCH (01:25)
[2019-06-16] MEDS: LR 1,000 ML IV SCH (04:35)
[2019-06-16 06:00] VITALS: BP 120/66
[2019-06-16 07:14] LABS: HEMATOCRIT 35.6 % (36.0-47.0); HEMOGLOBIN 11.5 g/dl (12.0-15.5); MEAN CORPUSCULAR HEMOGLOBIN 32.7 pg (27.0-33.0); MEAN CORPUSCULAR HGB CONC 32.3 g/dl (32.0-36.5); MEAN CORPUSCULAR VOLUME 101.1 fl (80.0-96.0); PLATELET COUNT, AUTOMATED 124 10^3/uL (150-450); RED BLOOD COUNT 3.52 10^6/uL (4.00-5.40); WHITE BLOOD COUNT 7.6 10^3/uL (4.0-10.0)
[2019-06-16 07:42] LABS: CALCIUM LEVEL 8.7 MG/DL (8.8-10.2); CREATININE FOR GFR 1.23 MG/DL (0.55-1.30); GLOMERULAR FILTRATION RATE 43.9 (>32); MAGNESIUM LEVEL 2.4 MG/DL (1.8-2.4); POTASSIUM SERUM 4.5 MEQ/L (3.5-5.1)
--- NOTE | 2019-06-16 08:58 | REP ---
Clinical: Status post open reduction and fixation. Technique: AP, lateral, oblique views of the right elbow. Findings: The patient is status post satisfactory open reduction and fixation for proximal ulna fracture. Impression: Status post satisfactory open reduction and fixation. Electronically Signed by Tito Sexton MD 06/16/2019 08:50 A
[2019-06-16] MEDS ORDERED: MIRALAX *UNIT DOSE* 17GM PACKET PO SCH (09:00)
[2019-06-16] MEDS: DOCUSATE SODIUM 100 MG CAP PO SCH (09:21)
[2019-06-16] MEDS: TORSEMIDE 10 MG TABLET PO SCH (09:21)
[2019-06-16] MEDS: ENOXAPARIN 30 MG/0.3 ML SYR (J1650) SC SCH (09:22)
[2019-06-16] MEDS ORDERED: ACET1TAB55 PO (10:08)
[2019-06-16] MEDS ORDERED: COLA100C5 PO (10:08)
[2019-06-16] MEDS ORDERED: PEG1POW PO ×2 (10:08→18:04)
[2019-06-16] MEDS ORDERED: MYLASSUD PO (10:08)
[2019-06-16] MEDS ORDERED: PERCOCET PO (10:08)
[2019-06-16] MEDS ORDERED: MOM30SS2 PO (10:08)
--- NOTE | 2019-06-16 13:07 | DS.PDOC ---
Discharge Summary General Date of Admission Jun 14, 2019 at 00:24 Date of Discharge 06/16/19 Discharge Summary PROCEDURES PERFORMED DURING STAY: None. ADMITTING DIAGNOSES: 1. Fall,Olecranon fracture. DISCHARGE DIAGNOSES: 1. Fall, Olecranon fracture. COMPLICATIONS/CHIEF COMPLAINT: Fall From Standing, Olecranon Fx. 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 She did not loose consciousness But she could not get up. She had a life alert on the let wrist but could not move her right hand to press it. She yelled for help was heard by the neighbors and EMS was called. In the ED se was found to have right olecranon fracture. SHe complained of severe 10/10 pain in her right elbow, dull throbbing in nature and minor movement was causing severe muscle spasm. No radiation. She also complained of pain in the right shoulder and forehead. She had a CT head and CT C-spine done which were negative for any acute events. Her Shoulder Xray which i reviewed personally did not show any fracture or dislocation. In the right hip Xray which I reviewed personally showed some calcifications in the soft tissue behind the joint ? avulsion of right acetabulum Vs gluteal injetion granuloma. Awaiting official radiology reads . There is no fracture or displacement of hardware. She was admitted for displaced olecranon fracture.. HOSPITAL COURSE: Patient's 89 years old female was brought to the hospital after mechanical fall. Patient was found to have right elbow fracture with dislocation, right shoulder contusion, right hip contusion, possible ulnar and radial wrist fractures Orthopedic surgical team consulted patient, today open reduction, internal fixation of right displaced olecranon fracture with pinning was done Displaced olecranon fracture s/p mechanical fall. Surgery was done successfully yesterday Dr. Wooten follows her Eliquis on hold for now CKD stage 3 will continue to monitor Chronic venous stasis and stasis ulcer on the right continue torsemide. DISCHARGE MEDICATIONS: Please see below. ALLERGIES: Please see below. PHYSICAL EXAMINATION ON DISCHARGE: VITAL SIGNS: Please see below. GENERAL: Within normal limits HEENT: PERRLA NECK: Supple CARDIOVASCULAR EXAMINATION: S1, S2, regular RESPIRATORY EXAMINATION: Clear to A&P ABDOMINAL EXAMINATION: Benign EXTREMITIES: No clubbing, cyanosis, edema. Dressing in right arm SKIN: With a normal limit NEUROLOGICAL EXAMINATION: Within normal limits PSYCHIATRIC EXAMINATION: Normal limits LABORATORY DATA: Please see below. IMAGING: [Fracture of the right olecranion PROGNOSIS: ACTIVITY: As tolerated. DIET: As tolerated DISCHARGE PLAN: Follow-up with orthopedic as an outpatient DISPOSITION: . Acute rehabilitation unit DISCHARGE INSTRUCTIONS: 1. As per discharge instructions. ITEMS TO FOLLOWUP ON ON OUTPATIENT: 1. Follow with orthopedics. DISCHARGE CONDITION: Stable. TIME SPENT ON DISCHARGE: 35 minutes. Vital Signs/I&Os Vital Signs Date Time Temp Pulse Resp B/P (MAP) Pulse Ox O2 Delivery O2 Flow Rate FiO2 06/16/19 12:45 16 06/16/19 06:00 97.9 63 120/66 (84) 99 2.0 06/13/19 19:58 Room Air I&O- Last 24 Hours up to 6 AM 06/16/19 06:00 Intake Total 2130 ml Output Total 925 ml Balance 1205 ml Laboratory Data Labs 24H Laboratory Tests 2 06/16/19 07:03: Nucleated Red Blood Cells % (auto) 0.0, Anion Gap 4L, Glomerular Filtration Rate 43.9, Blood Urea Nitrogen 23H, Creatinine 1.23, Sodium Level 142, Potassium Level 4.5#, Chloride Level 105, Carbon Dioxide Level 33H, Calcium Level 8.7L, Magnesium Level 2.4 CBC/BMP Laboratory Tests 06/16/19 07:03 Red Blood Count 3.52 L, Mean Corpuscular Volume 101.1 H, Mean Corpuscular Hemoglobin 32.7, Mean Corpuscular Hemoglobin Concent 32.3, Red Cell Distribution Width 13.4, Calcium Level 8.7 L Discharge Medications Scheduled Apixaban (Eliquis) 5 Mg Tablet, 5 MG PO BID, (Reported) Docusate Sodium (Colace) 100 Mg Capsule, 100 MG PO BID Polyethylene Glycol 3350 (Polyethylene Glycol 3350) 17 Gm Powd.pack, 1 PKT PO DAILY Potassium Chloride (Potassium Chloride) 10 Meq Capsule.er, 10 MEQ PO BID, (Reported) Torsemide (Torsemide) 10 Mg Tablet, 20 MG PO DAILY, (Reported) Scheduled PRN Acetaminophen (Acetaminophen) 325 Mg Tablet, 650 MG PO Q4HP PRN for PAIN OR FEVE R Aluminum/Magnesium/Simeth (Mag-Al Plus Suspension) 30 Ml Oral.susp, 30 ML PO DAILY PRN for DYSPEPSIA Magnesium Hydroxide (Milk of Magnesia) 400 Mg/5 Ml Oral.susp, 30 ML PO DAILY PRN for CONSTIPATION Oxycodone/Acetaminophen (Oxycodone-Acetaminophen 5-325) 1 Each Tablet, 1 TAB PO Q6HP PRN for MILD/MODERATE PAIN (PS 1-7) Torsemide (Torsemide) 10 Mg Tablet, 10 MG PO QPM PRN for SWELLING LEGS, (Reported) Allergies Coded Allergies: No Known Allergies (Unverified , 06/13/19) PRISCILA DUMONT MD Jun 16, 2019 13:06
[2019-06-16 14:16] VITALS: BP 119/60
[2019-06-16] MEDS ORDERED: MILKSUS3 PO (18:04)
[2019-06-16] MEDS ORDERED: OXYC1TAB23 PO (18:04)
[2019-06-16] MEDS ORDERED: DOCU100C16 PO (18:04)
[2019-06-16] MEDS ORDERED: MAG-LIQ2 PO (18:06)
[2019-06-16] MEDS ORDERED: ACET-908 PO (18:07)
== END 2019-06-16 15:40 | DRG 511 ==
LOC: M ED 19:47 → M ED INP 06-14 00:24 → M MS5PR 06-14 01:00
PROVIDERS: ADMIT Internal Medicine Nephrology; ATTEND Internal Medicine
PROC: 0PSK04Z Reposition Right Ulna with Internal Fixation Device, Open Approach (ICD-10-PCS; principal; 2019-06-15 08:40)
DX: S52.021A Displaced fracture of olecranon process without intraarticular extension of right ulna, initial encounter for closed fracture (principal); L97.911 Non-pressure chronic ulcer of unspecified part of right lower leg limited to breakdown of skin; I87.2 Venous insufficiency (chronic) (peripheral); W18.30XA Fall on same level, unspecified, initial encounter; Y92.009 Unspecified place in unspecified non-institutional (private) residence as the place of occurrence of the external cause; Z79.899 Other long term (current) drug therapy; F17.200 Nicotine dependence, unspecified, uncomplicated; Z86.718 Personal history of other venous thrombosis and embolism; N18.3 Chronic kidney disease, stage 3 (moderate); I12.9 Hypertensive chronic kidney disease with stage 1 through stage 4 chronic kidney disease, or unspecified chronic kidney disease; Z79.01 Long term (current) use of anticoagulants

== ENCOUNTER 2019-06-16 12:22 | Inpatient (IN) | payer MEDICARE, OTHER ==
[~2019-06-16] VITALS: Ht 152.4 cm; Wt 53.5 kg
[~2019-06-16 12:22] MED LIST changes: +CHOL100029 PO; +COLA100C5 PO; -DOKTAB2 PO; +ELIQ5TAB PO; +MOM30SS2 PO; +MYLASSUD PO; +PEG1POW PO; +POTA10CA32 PO; +SENN1TAB84 PO; -VITAD1000T PO
[2019-06-16 15:40] VITALS: BP 138/65
[2019-06-16] MEDS ORDERED: BISACODYL 10 MG SUPP PR PRN (17:30)
[2019-06-16] MEDS ORDERED: MOM 30ML SUSPENSION UDC PO PRN (17:30)
--- NOTE | 2019-06-16 17:30 | HPEPDOC ---
Project Product Manager Note DATE OF ADMISSION: 06/16/19 SOURCE OF ADMISSION INFORMATION: [facility] records and patient CHIEF COMPLAINT: right olecranon fracture HISTORY OF PRESENT ILLNESS: 89F pmh DVT RLE on Eliquis, HTN, CKD who fell at home while walking her dog without presyncopal features and presented to [facility] ED on 06/13/19complaining of right arm pain. Elbow xray revealed, Fractures primarily involving the proximal ulna with overlying swelling and hemarthrosis. She was evaluated by orthopedics who performed a right olecranon ORIF on 06/14/19 without complication. She had post-op blood loss anemia and hypokalemia. Her Eliquis was restarted at time of discharge. She was evaluated by therapy, was found to have significant impairments in ADLs and mobility and deemed medically appropriate for discharge to ARU on 06/16/19. REVIEW OF SYSTEMS: The following is a completed review of systems and has been reviewed. Review of systems otherwise unremarkable. PAIN: Patient self reports right elbow pain EYES: No recent vision changes EARS, NOSE, & THROAT: No throat pain, or dysphagia, or rhinorrhea CARDIOVASCULAR: Denies chest pain or palpitations PULMONARY: Denies shortness of breath GASTROINTESTINAL: Denies constipation/diarrhea GENITOURINARY: denies dysuria MUSCULOSKELETAL: right olecranon fracture NEUROLOGICAL:no seizures/tremors SKIN: scattered ecchymosis PSYCHIATRIC: Unremarkable All other review of systems found to be negative. PAST MEDICAL HISTORY: as per HPI PAST SURGICAL HISTORY: Right hip fracture s/p hemiarthroplasy 2016, hysterectomy, cataract, left wrist surgery, vein stripping ALLERGIES: Please see below. MEDICATIONS: Please see below. FAMILY HISTORY: PAD SOCIAL HISTORY: no ETOH, smoking, illicit drugs DIET: low sodium PHYSICAL EXAMINATION: VITAL SIGNS: Please see below. GENERAL: Pleasant and cooperative. No acute distress. HEENT: PERRL. Extraocular movements intact. Clear conjunctiva. periorbital ecchymosis CARDIOVASCULAR: Regular rate and rhythm. No murmurs, rubs, or gallops LUNGS: Clear to auscultation bilaterally. No wheezes. No rhonchi. ABDOMEN: Soft, nontender, nondistended. Positive bowel sounds. Normal active bowel sounds NEUROLOGICAL: Alert and oriented times three. Cranial nerves II through XII grossly intact. Sensation grossly intact in all 4 extremities to light touch EXTREMITIES: 5/ 5 strength left upper extremities. right side exam limited, billing auditor >3/5, thumb extension/flexion/abduction/adduction >3/5 4\5 strength right lower extremity. 4/5 strength in left lower extremity. +strong right radial pulse, hand warm to touch SKIN: sacrum without ulcers, right hand mildly edematous LABORATORY DATA: Please see below. IMAGING:Imaging documentation personally reviewed by record FUNCTIONAL STATUS: Premorbid: Independent with all activities of daily life as well as mobility On Admission: Min-assist for functional transfers, ambulation, Mod-assist for bed mobility, total assist for lower body dressing GOALS: Mod-I with quad-cane/center-post walker for community distances, stairs, functional transfers, bathing, dressing, toileting, medical optimization, assess for DMEs ASSESSMENT:89-year-old F with past medical history of HTN, CKD who presents status post fall with right olecranon fracture. PLAN: 1. Rehab: PT- stretch/strengthen/maintain ROM bilat LE, imrpove gait endurance, fall prevention OT-stretch/strengthen/maintain ROM Left UE, maintain NWB RUE, teach ADL management 2. Neuro: avoid delirogenic meds 3. Ortho: s.p fall with right olecranon fracture s/p ORIF, NWB, ortho consulted 4. CArdiac: pmh HTN and PVD, c/u Torsemide, medicine consulted to assist in ov erall management 5. VAsc: RLE DVT on Eliquis 6. GI ppx: protonix 7. DVT ppx: on therapeutic Eliquis 8. Pain: Tylenol, oxycodone, ice 9. Dispo: tbd POST ADMISSION PHYSICIAN EVALUATION: Medical and functional status: Description of medical status, medical assessment: As above. Rehabilitation diagnosis and current and prior cold morbid medical conditions as above. Risk of complications and plans to mitigate them as above. Description of functional status current status is as above. Prior status as above. Status compared to preadmission: There are no clinically significant differences between the patient's current status and the information described on the preadmission screening document. Treatment plan anticipated: Treatment plan is as described above. Required disciplines including physical therapy, occupational therapy, others as noted above Intensity of services: 3 hours a day, 6 days a week. Special considerations: There are no specific special or safety considerations that would likely preclude immediate implementation of an intensive rehabilitation program or subsequently influence the plan of care. ATTESTATION: Considering all the information above, it is my best judgment that this patient requires intensive rehabilitation therapy as described above and an inpatient hospital environment due to the complexity of nursing, medical, and rehabilitation needs required by the patient. Furthermore, this patient can reasonably be expected to participate in an benefit from an inpatient rehabilitation stay with an interdisciplinary team approach to the delivery of rehabilitation care under the direction and supervision of parker cruz. PROGNOSIS: Excellent ESTIMATED LENGTH OF STAY:14-16 days. PROJECTED DISCHARGE DESTINATION: Home with family support and any durable medical equipment required to increase functional safety and mobility TIME SPENT COUNSELING AND COORDINATING INITIAL CARE: Greater than 70 minutes. Vital Signs Vital Sign - Last 24 Hours 06/16/19 15:40 Temp 98.9 Pulse 78 Resp 17 B/P (MAP) 138/65 (89) Pulse Ox 91 Home Medications Scheduled Apixaban (Eliquis) 5 Mg Tablet, 5 MG PO BID, (Reported) Docusate Sodium (Docusate Sodium) 100 Mg Capsule, 100 MG PO BID, (Reported) Magnesium Hydroxide (Milk of Magnesia) 400 Mg/5 Ml Oral.susp, 30 ML PO DAILY, (Reported) Polyethylene Glycol 3350 (Polyethylene Glycol 3350) 17 Gm Powd.pack, 1 PKT PO DAILY, (Reported) Potassium Chloride (Potassium Chloride) 10 Meq Capsule.er, 10 MEQ PO BID, (Reported) Torsemide (Torsemide) 10 Mg Tablet, 20 MG PO DAILY, (Reported) Scheduled PRN Acetaminophen (Acetaminophen) 325 Mg Tablet, 650 MG PO Q4H PRN for PAIN / FEVER, (Reported) Mag Hydrox/Aluminum Hyd/Simeth (Mag-Al Plus Xs Suspension) 30 Ml Oral.susp, 30 ML PO DAILY PRN for DYSPEPSIA, (Reported) Oxycodone HCl/Acetaminophen (Oxycodone-Acetaminophen 5-325) 1 Each Tablet, 1 TAB PO Q6H PRN for pain, (Reported) Torsemide (Torsemide) 10 Mg Tablet, 10 MG PO QPM PRN for SWELLING LEGS, (Reported) Allergies Coded Allergies: No Known Allergies (Unverified , 06/13/19) A-FIB/CHADSVASC A-FIB History Current/History of A-Fib/PAF?: No FADI JEONG MD Jun 16, 2019 17:30
[2019-06-16] MEDS ORDERED: OXYC1TAB23 PO (18:04)
[2019-06-16] MEDS ORDERED: MILKSUS3 PO (18:04)
[2019-06-16] MEDS ORDERED: PEG1POW PO (18:04)
[2019-06-16] MEDS ORDERED: DOCU100C16 PO (18:04)
[2019-06-16] MEDS ORDERED: MAG-LIQ2 PO (18:06)
[2019-06-16] MEDS ORDERED: ACET-908 PO (18:07)
[2019-06-16 20:00] VITALS: BP 127/58
[2019-06-16] MEDS: SENNA 8.6 MG TAB (SENOKOT) PO SCH (20:37)
[2019-06-16] MEDS: POTASSIUM CHLORIDE 10 MEQ SR TABLET PO SCH (20:37)
[2019-06-16] MEDS: APIXABAN 5 MG TAB (ELIQUIS) PO SCH (20:37)
[2019-06-16] MEDS: DOCUSATE SODIUM 100 MG CAP PO SCH (20:37)
[2019-06-16] MEDS: ACETAMINOPHEN 500 MG TAB PO SCH (20:38)
[2019-06-17 04:00] VITALS: BP 150/71
[2019-06-17 06:46] LABS: BASO # 0.1 10^3/uL (0.0-0.2); BASO % 0.8 % (0.0-1.0); EOS # 0.2 10^3/uL (0.0-0.5); HEMATOCRIT 34.5 % (36.0-47.0); HEMOGLOBIN 11.2 g/dl (12.0-15.5); LYMPH # 0.9 10^3/uL (1.5-5.0); LYMPH % 14.6 % (24.0-44.0); MEAN CORPUSCULAR HEMOGLOBIN 32.7 pg (27.0-33.0); MEAN CORPUSCULAR HGB CONC 32.5 g/dl (32.0-36.5); MEAN CORPUSCULAR VOLUME 100.6 fl (80.0-96.0); MONO # 0.6 10^3/uL (0.0-0.8); MONO % 10.6 % (0.0-5.0); NEUTROPHILS # 4.2 10^3/uL (1.5-8.5); NEUTROPHILS % 70.5 % (36.0-66.0); PLATELET COUNT, AUTOMATED 126 10^3/uL (150-450); RED BLOOD COUNT 3.43 10^6/uL (4.00-5.40)
[2019-06-17 07:09] LABS: ALBUMIN 2.3 GM/DL (3.2-5.2); BILIRUBIN,TOTAL 0.7 MG/DL (0.2-1.0); CALCIUM LEVEL 8.5 MG/DL (8.8-10.2); CREATININE FOR GFR 1.09 MG/DL (0.55-1.30); GLOMERULAR FILTRATION RATE 50.4 (>32); POTASSIUM SERUM 4.2 MEQ/L (3.5-5.1); TOTAL PROTEIN 5.4 GM/DL (6.4-8.2)
[2019-06-17] MEDS: POTASSIUM CHLORIDE 10 MEQ SR TABLET PO SCH ×2 (09:41→20:15)
[2019-06-17] MEDS: PANTOPRAZOLE 40MG TAB (PROTONIX) PO SCH (09:41)
[2019-06-17] MEDS: DOCUSATE SODIUM 100 MG CAP PO SCH ×2 (09:41→20:15)
[2019-06-17] MEDS: APIXABAN 5 MG TAB (ELIQUIS) PO SCH ×2 (09:41→20:15)
[2019-06-17] MEDS: ACETAMINOPHEN 500 MG TAB PO SCH ×3 (09:41→20:15)
[2019-06-17] MEDS: TORSEMIDE 20 MG TAB PO SCH (09:41)
--- NOTE | 2019-06-17 10:50 | IPNPDOC ---
PM&R Progress Note DATE OF SERVICE: Jun 17, 2019 Bench Lay Out Technician Progress Note Subjective: Patient reporting she would like to go home and does not want to be here, but is willing to participate in therapy. REVIEW OF SYSTEMS: The following is a completed review of systems and has been reviewed. Review of systems otherwise unremarkable. PAIN: Patient self reports right elbow pain EYES: No recent vision changes EARS, NOSE, & THROAT: No throat pain, or dysphagia, or rhinorrhea CARDIOVASCULAR: Denies chest pain or palpitations PULMONARY: Denies shortness of breath GASTROINTESTINAL: Denies constipation/diarrhea GENITOURINARY: denies dysuria MUSCULOSKELETAL: right olecranon fracture NEUROLOGICAL:no seizures/tremors SKIN: scattered ecchymosis PSYCHIATRIC: Unremarkable All other review of systems found to be negative. PHYSICAL EXAMINATION: VITAL SIGNS: Please see below. GENERAL: Pleasant and cooperative. No acute distress. HEENT: PERRL. Extraocular movements intact. Clear conjunctiva. periorbital ecchymosis CARDIOVASCULAR: Regular rate and rhythm. No murmurs, rubs, or gallops LUNGS: Clear to auscultation bilaterally. No wheezes. No rhonchi. ABDOMEN: Soft, nontender, nondistended. Positive bowel sounds. Normal active bowel sounds NEUROLOGICAL: Alert and oriented times three. Cranial nerves II through XII grossly intact. Sensation grossly intact in all 4 extremities to light touch EXTREMITIES: 5/ 5 strength left upper extremities. right side exam limited, import export clerk >3/5, thumb extension/flexion/abduction/adduction >3/5 4\5 strength right lower extremity. 4/5 strength in left lower extremity. +strong right radial pulse, hand warm to touch ASSESSMENT:89-year-old F with past medical history of HTN, CKD who presents status post fall with right olecranon fracture. PLAN: 1. Rehab: PT- stretch/strengthen/maintain ROM bilat LE, imrpove gait endurance, fall prevention OT-stretch/strengthen/maintain ROM Left UE, maintain NWB RUE, teach ADL management 2. Neuro: avoid delirogenic meds 3. Ortho: s.p fall with right olecranon fracture s/p ORIF, NWB, ortho consulted 4. CArdiac: pmh HTN and PVD, c/u Torsemide, medicine consulted to assist in overall management 5. VAsc: RLE DVT on Eliquis 6. GI ppx: protonix 7. DVT ppx: on therapeutic Eliquis 8. Pain: Tylenol, oxycodone, ice 9. Dispo: tbd Allergies Coded Allergies: No Known Allergies (Unverified , 06/13/19) Vital Signs Vital Signs Date Time Temp Pulse Resp B/P (MAP) Pulse Ox O2 Delivery O2 Flow Rate FiO2 06/17/19 04:00 98.1 68 18 150/71 (97) 97 2.0 Laboratory Data CBC/BMP Laboratory Tests 06/17/19 06:30 Red Blood Count 3.43 L, Mean Corpuscular Volume 100.6 H, Mean Corpuscular Hemoglobin 32.7, Mean Corpuscular Hemoglobin Concent 32.5, Red Cell Distribution Width 13.4, Neutrophils (%) (Auto) 70.5 H, Lymphocytes (%) (Auto) 14.6 L, Monocytes (%) (Auto) 10.6 H, Eosinophils (%) (Auto) 3.0, Basophils (%) (Auto) 0.8, Neutrophils # (Auto) 4.2, Lymphocytes # (Auto) 0.9 L, Monocytes # (Auto) 0.6, Eosinophils # (Auto) 0.2, Basophils # (Auto) 0.1, Calcium Level 8.5 L, Aspartate Amino Transf (AST/SGOT) 22, Alanine Aminotransferase (ALT/SGPT) 10 L, Alkaline Phosphatase 67, Total Bilirubin 0.7, Total Protein 5.4 L, Albumin 2.3 L Labs 24H Laboratory Tests 2 06/17/19 06:30: Immature Granulocyte % (Auto) 0.5, White Blood Count 6.0, Red Blood Count 3.43L, Hemoglobin 11.2L, Hematocrit 34.5L, Mean Corpuscular Volume 100.6H, Mean Corpuscular Hemoglobin 32.7, Mean Corpuscular Hemoglobin Concent 32.5, Red Cell Distribution Width 13.4, Platelet Count 126L, Neutrophils (%) (Auto) 70.5H, Lymphocytes (%) (Auto) 14.6L, Monocytes (%) (Auto) 10.6H, Eosinophils (%) (Auto) 3.0, Basophils (%) (Auto) 0.8, Neutrophils # (Auto) 4.2, Lymphocytes # (Auto) 0.9L, Monocytes # (Auto) 0.6, Eosinophils # (Auto) 0.2, Basophils # (Auto) 0.1, Nucleated Red Blood Cells % (auto) 0.0, Anion Gap 6L, Glomerular Filtration Rate 50.4, Blood Urea Nitrogen 26H, Creatinine 1.09, Sodium Level 142, Potassium Level 4.2, Chloride Level 106, Carbon Dioxide Level 30, Calcium Level 8.5L, Aspartate Amino Transf (AST/SGOT) 22, Alanine Aminotransferase (ALT/SGPT) 10L, Alkaline Phosphatase 67, Total Bilirubin 0.7, Total Protein 5.4L, Albumin 2.3L, Albumin/Globulin Ratio 0.74L Current Medications Current Medications Current Medications Medications (Trade) Dose Ordered Sig/Ellyn Route PRN Reason Start Time Stop Time Status Last Admin Dose Admin Acetaminophen (Tylenol Tab) 1,000 mg TID PO 06/16/19 21:00 06/17/19 09:41 Apixaban (Eliquis) 5 mg BID PO 06/16/19 21:00 06/17/19 09:41 Bisacodyl (Dulcolax Suppository) 10 mg DAILYPRN PRN NV CONSTIPATION 06/16/19 17:30 Docusate Sodium (Colace) 100 mg BID PO 06/16/19 21:00 06/17/19 09:41 Home Med (Med Rec Complete!) ASDIRECTED XX 06/16/19 18:15 06/16/19 18:46 DC Magnesium Hydroxide (Milk Of Magnesia) 30 ml DAILYPRN PRN PO CONSTIPATION 06/16/19 17:30 Oxycodone HCl (Roxicodone, Oxyir) 5 mg Q4HP PRN PO PAIN 06/16/19 17:30 Pantoprazole Sodium (Protonix) 40 mg DAILY PO 06/17/19 09:00 06/17/19 09:41 Potassium Chloride (Micro-K Extencaps) 10 meq BID PO 06/16/19 21:00 06/17/19 09:41 Senna (Senokot) 1 tab QHS PO 06/16/19 21:00 06/16/19 20:37 Torsemide (Demadex) 20 mg DAILY PO 06/17/19 09:00 06/17/19 09:41 FADI JEONG MD Jun 17, 2019 10:50
[2019-06-17] MEDS: oxyCODONE 5MG TAB PO PRN (11:32)
[2019-06-17 14:00] VITALS: BP 119/58
[2019-06-17] MEDS: SENNA 8.6 MG TAB (SENOKOT) PO SCH (20:14)
[2019-06-17 21:37] VITALS: BP 122/63
--- NOTE | 2019-06-18 03:37 | HPEPDOC ---
General Date of Admission Jun 16, 2019 at 15:45 Date of Service: Jun 17, 2019 Chief Complaint The patient is a 89-year-old female admitted with a reason for visit of Right Olecranon Fracture. History of Present Illness 89f with hx of ckd, DVT, possible dementia was admitted to the rehab unit after hospitalization for a mechanical fall. Pt apparently fell while bending over to [employer] her dog and suffered an olecranon fracture. she underwent ORIF yesterday. She is noted by nursing staff to have difficulty with her ADLs and to have periods of confusion and agitation. A full ROS was performed and negative except as above Home Medications Scheduled Apixaban (Eliquis) 5 Mg Tablet, 5 MG PO BID, (Reported) Docusate Sodium (Docusate Sodium) 100 Mg Capsule, 100 MG PO BID, (Reported) Magnesium Hydroxide (Milk of Magnesia) 400 Mg/5 Ml Oral.susp, 30 ML PO DAILY for constipation, (Reported) Polyethylene Glycol 3350 (Polyethylene Glycol 3350) 17 Gm Powd.pack, 1 PKT PO DAILY, (Reported) Potassium Chloride (Potassium Chloride) 10 Meq Capsule.er, 10 MEQ PO BID, (Reported) Torsemide (Torsemide) 10 Mg Tablet, 20 MG PO DAILY, (Reported) Scheduled PRN Acetaminophen (Acetaminophen) 325 Mg Tablet, 650 MG PO Q4H PRN for PAIN / FEVER, (Reported) Mag Hydrox/Aluminum Hyd/Simeth (Mag-Al Plus Xs Suspension) 30 Ml Oral.susp, 30 ML PO DAILY PRN for DYSPEPSIA, (Reported) Oxycodone HCl/Acetaminophen (Oxycodone-Acetaminophen 5-325) 1 Each Tablet, 1 TAB PO Q6H PRN for pain, (Reported) Torsemide (Torsemide) 10 Mg Tablet, 10 MG PO QPM PRN for SWELLING LEGS, (Reported) Allergies Coded Allergies: No Known Allergies (Unverified , 06/13/19) Family History Significant Family History: No pertinent family hx Social History * Smoker: Denies Alcohol: Denies Drugs: denies A-FIB/CHADSVASC A-FIB History Current/History of A-Fib/PAF?: No Current PO Anticoag Therapy: Yes Physical Examination General Exam: Positive: Alert, Cooperative, No Acute Distress Eye Exam: Positive: PERRLA, Conjunctiva & lids normal, EOMI; Negative: Sclera icteric ENT Exam: Positive: Atraumatic, Mucous membr. moist/pink, Pharynx Normal Neck Exam: Positive: Supple; Negative: JVD, thyromegaly Chest Exam: Positive: Clear to auscultation, Normal air movement Heart Exam: Positive: Rate Normal, Regular Rhythm, Normal S1, Normal S2; Negative: Murmurs, Rubs Abdomen Exam: Positive: Normal bowel sounds, Soft; Negative: Tenderness, Hepatospenomegaly Extremity Exam: Positive: Normal pulses; Negative: Clubbing, Cyanosis, Edema Skin Exam: Positive: Nl turgor and temperature; Negative: Breakdown, Lesion Neuro Exam: Positive: Normal Gait, Normal Speech, Cranial Nerves 3-12 NL, Reflexes 2+ Psych Exam: Positive: Mental status NL, Mood NL, Oriented x 3 Vital Signs Vital Signs Date Time Temp Pulse Resp B/P (MAP) Pulse Ox O2 Delivery O2 Flow Rate FiO2 06/17/19 21:37 97.7 83 18 122/63 (82) 94 2.0 Laboratory Data Labs 24H Laboratory Tests 2 06/17/19 06:30: Immature Granulocyte % (Auto) 0.5, White Blood Count 6.0, Red Blood Count 3.43L, Hemoglobin 11.2L, Hematocrit 34.5L, Mean Corpuscular Volume 100.6H, Mean Corpuscular Hemoglobin 32.7, Mean Corpuscular Hemoglobin Concent 32.5, Red Cell Distribution Width 13.4, Platelet Count 126L, Neutrophils (%) (Auto) 70.5H, Lymphocytes (%) (Auto) 14.6L, Monocytes (%) (Auto) 10.6H, Eosinophils (%) (Auto) 3.0, Basophils (%) (Auto) 0.8, Neutrophils # (Auto) 4.2, Lymphocytes # (Auto) 0.9L, Monocytes # (Auto) 0.6, Eosinophils # (Auto) 0.2, Basophils # (Auto) 0.1, Nucleated Red Blood Cells % (auto) 0.0, Anion Gap 6L, Glomerular Filtration Rate 50.4, Blood Urea Nitrogen 26H, Creatinine 1.09, Sodium Level 142, Potassium Level 4.2, Chloride Level 106, Carbon Dioxide Level 30, Calcium Level 8.5L, Aspartate Amino Transf (AST/SGOT) 22, Alanine Aminotransferase (ALT/SGPT) 10L, Alkaline Phosphatase 67, Total Bilirubin 0.7, Total Protein 5.4L, Albumin 2.3L, Albumin/Globulin Ratio 0.74L CBC/BMP Laboratory Tests 06/17/19 06:30 Red Blood Count 3.43 L, Mean Corpuscular Volume 100.6 H, Mean Corpuscular Hemoglobin 32.7, Mean Corpuscular Hemoglobin Concent 32.5, Red Cell Distribution Width 13.4, Neutrophils (%) (Auto) 70.5 H, Lymphocytes (%) (Auto) 14.6 L, Monocytes (%) (Auto) 10.6 H, Eosinophils (%) (Auto) 3.0, Basophils (%) (Auto) 0.8, Neutrophils # (Auto) 4.2, Lymphocytes # (Auto) 0.9 L, Monocytes # (Auto) 0.6, Eosinophils # (Auto) 0.2, Basophils # (Auto) 0.1, Calcium Level 8.5 L, Aspartate Amino Transf (AST/SGOT) 22, Alanine Aminotransferase (ALT/SGPT) 10 L, Alkaline Phosphatase 67, Total Bilirubin 0.7, Total Protein 5.4 L, Albumin 2.3 L Assessment/Plan 89f admitted after elbow fracture olecranon fracture s/p ORIF DVT on avoid medications that can cause delerium frequent reorientation edema continue home torsemide Plan / VTE VTE Prophylaxis Ordered?: Yes BRENDAN CORONADO MD Jun 18, 2019 03:37
[2019-06-18 05:10] VITALS: BP 141/70
[2019-06-18 07:01] LABS: BASO # 0.1 10^3/uL (0.0-0.2); EOS # 0.2 10^3/uL (0.0-0.5); EOS % 3.7 % (0.0-3.0); HEMATOCRIT 32.6 % (36.0-47.0); HEMOGLOBIN 10.6 g/dl (12.0-15.5); LYMPH # 0.8 10^3/uL (1.5-5.0); LYMPH % 17.2 % (24.0-44.0); MEAN CORPUSCULAR HGB CONC 32.5 g/dl (32.0-36.5); MEAN CORPUSCULAR VOLUME 101.6 fl (80.0-96.0); MONO # 0.6 10^3/uL (0.0-0.8); MONO % 12.2 % (0.0-5.0); NEUTROPHILS # 3.2 10^3/uL (1.5-8.5); NEUTROPHILS % 65.5 % (36.0-66.0); PLATELET COUNT, AUTOMATED 141 10^3/uL (150-450); RED BLOOD COUNT 3.21 10^6/uL (4.00-5.40); WHITE BLOOD COUNT 4.8 10^3/uL (4.0-10.0)
[2019-06-18 07:19] LABS: CALCIUM LEVEL 8.5 MG/DL (8.8-10.2); CREATININE FOR GFR 1.16 MG/DL (0.55-1.30); GLOMERULAR FILTRATION RATE 46.9 (>32); POTASSIUM SERUM 3.9 MEQ/L (3.5-5.1)
[2019-06-18] MEDS: TORSEMIDE 20 MG TAB PO SCH (10:44)
[2019-06-18] MEDS: DOCUSATE SODIUM 100 MG CAP PO SCH ×2 (10:44→20:02)
[2019-06-18] MEDS: POTASSIUM CHLORIDE 10 MEQ SR TABLET PO SCH ×2 (10:44→20:02)
[2019-06-18] MEDS: PANTOPRAZOLE 40MG TAB (PROTONIX) PO SCH (10:44)
[2019-06-18] MEDS: APIXABAN 5 MG TAB (ELIQUIS) PO SCH ×2 (10:44→20:02)
[2019-06-18] MEDS: ACETAMINOPHEN 500 MG TAB PO SCH ×3 (10:44→22:08)
[2019-06-18] MEDS: oxyCODONE 5MG TAB PO PRN ×2 (11:27→18:35)
--- NOTE | 2019-06-18 12:40 | IPNPDOC ---
PM&R Progress Note DATE OF SERVICE: Jun 18, 2019 Video Production Coordinator Progress Note Subjective: Patient reporting she has right groin pain with walking since having fallen. REVIEW OF SYSTEMS: The following is a completed review of systems and has been reviewed. Review of systems otherwise unremarkable. PAIN: Patient self reports right elbow pain EYES: No recent vision changes EARS, NOSE, & THROAT: No throat pain, or dysphagia, or rhinorrhea CARDIOVASCULAR: Denies chest pain or palpitations PULMONARY: Denies shortness of breath GASTROINTESTINAL: Denies constipation/diarrhea GENITOURINARY: denies dysuria MUSCULOSKELETAL: right olecranon fracture NEUROLOGICAL:no seizures/tremors SKIN: scattered ecchymosis PSYCHIATRIC: Unremarkable All other review of systems found to be negative. PHYSICAL EXAMINATION: VITAL SIGNS: Please see below. GENERAL: Pleasant and cooperative. No acute distress. HEENT: PERRL. Extraocular movements intact. Clear conjunctiva. periorbital ecchymosis CARDIOVASCULAR: Regular rate and rhythm. No murmurs, rubs, or gallops LUNGS: Clear to auscultation bilaterally. No wheezes. No rhonchi. ABDOMEN: Soft, nontender, nondistended. Positive bowel sounds. Normal active bowel sounds NEUROLOGICAL: Alert and oriented times three. Cranial nerves II through XII grossly intact. Sensation grossly intact in all 4 extremities to light touch EXTREMITIES: 5/ 5 strength left upper extremities. right side exam limited, first aid director >3/5, thumb extension/flexion/abduction/adduction >3/5 4\5 strength right lower extremity. 4/5 strength in left lower extremity. +strong right radial pulse, hand warm to touch ASSESSMENT:89-year-old F with past medical history of HTN, CKD who presents status post fall with right olecranon fracture. PLAN: 1. Rehab: PT- stretch/strengthen/maintain ROM bilat LE, imrpove gait endurance, fall prevention OT-stretch/strengthen/maintain ROM Left UE, maintain NWB RUE, teach ADL management 2. Neuro: avoid delirogenic meds 3. Ortho: s.p fall with right olecranon fracture s/p ORIF, NWB, ortho consulted -will order right hip X-ray to r/o fracture given groin pain with ambulation, imaging on inpatient admission was negative 4. CArdiac: pmh HTN and PVD, c/u Torsemide, medicine consulted to assist in overall management 5. VAsc: RLE DVT on Eliquis 6. GI ppx: protonix 7. DVT ppx: on therapeutic Eliquis 8. Pain: Tylenol, oxycodone, ice 9. Dispo: tbd Allergies Coded Allergies: No Known Allergies (Unverified , 06/13/19) Vital Signs Vital Signs Date Time Temp Pulse Resp B/P (MAP) Pulse Ox O2 Delivery O2 Flow Rate FiO2 06/18/19 11:27 18 06/18/19 05:10 97.1 82 141/70 (93) 92 06/17/19 21:37 2.0 Laboratory Data CBC/BMP Laboratory Tests 06/18/19 06:14 Red Blood Count 3.21 L, Mean Corpuscular Volume 101.6 H, Mean Corpuscular Hemoglobin 33.0, Mean Corpuscular Hemoglobin Concent 32.5, Red Cell Distribution Width 13.5, Neutrophils (%) (Auto) 65.5, Lymphocytes (%) (Auto) 17.2 L, Monocytes (%) (Auto) 12.2 H, Eosinophils (%) (Auto) 3.7 H, Basophils (%) (Auto) 1.0, Neutrophils # (Auto) 3.2, Lymphocytes # (Auto) 0.8 L, Monocytes # (Auto) 0.6, Eosinophils # (Auto) 0.2, Basophils # (Auto) 0.1, Calcium Level 8.5 L Labs 24H Laboratory Tests 2 06/18/19 06:14: Immature Granulocyte % (Auto) 0.4, White Blood Count 4.8, Red Blood Count 3.21L, Hemoglobin 10.6L, Hematocrit 32.6L, Mean Corpuscular Volume 101.6H, Mean Corpuscular Hemoglobin 33.0, Mean Corpuscular Hemoglobin Concent 32.5, Red Cell Distribution Width 13.5, Platelet Count 141L, Neutrophils (%) (Auto) 65.5, Lymphocytes (%) (Auto) 17.2L, Monocytes (%) (Auto) 12.2H, Eosinophils (%) (Auto) 3.7H, Basophils (%) (Auto) 1.0, Neutrophils # (Auto) 3.2, Lymphocytes # (Auto) 0.8L, Monocytes # (Auto) 0.6, Eosinophils # (Auto) 0.2, Basophils # (Auto) 0.1, Nucleated Red Blood Cells % (auto) 0.0, Anion Gap 4L, Glomerular Filtration Rate 46.9, Blood Urea Nitrogen 26H, Creatinine 1.16, Sodium Level 142, Potassium Level 3.9, Chloride Level 106, Carbon Dioxide Level 32, Calcium Level 8.5L Current Medications Current Medications Current Medications Medications (Trade) Dose Ordered Sig/Ellyn Route PRN Reason Start Time Stop Time Status Last Admin Dose Admin Acetaminophen (Tylenol Tab) 1,000 mg TID PO 06/16/19 21:00 06/18/19 10:44 Apixaban (Eliquis) 5 mg BID PO 06/16/19 21:00 06/18/19 10:44 Bisacodyl (Dulcolax Suppository) 10 mg DAILYPRN PRN [place] CONSTIPATION 06/16/19 17:30 Docusate Sodium (Colace) 100 mg BID PO 06/16/19 21:00 06/18/19 10:44 Home Med (Med Rec Complete!) ASDIRECTED XX 06/16/19 18:15 06/16/19 18:46 DC Magnesium Hydroxide (Milk Of Magnesia) 30 ml DAILYPRN PRN PO CONSTIPATION 06/16/19 17:30 Oxycodone HCl (Roxicodone, Oxyir) 5 mg Q4HP PRN PO PAIN 06/16/19 17:30 06/18/19 11:27 Pantoprazole Sodium (Protonix) 40 mg DAILY PO 06/17/19 09:00 06/18/19 10:44 Potassium Chloride (Micro-K Extencaps) 10 meq BID PO 06/16/19 21:00 06/18/19 10:44 Senna (Senokot) 1 tab QHS PO 06/16/19 21:00 06/17/19 20:14 Torsemide (Demadex) 20 mg DAILY PO 06/17/19 09:00 06/18/19 10:44 FADI JEONG MD Jun 18, 2019 12:40
--- NOTE | 2019-06-18 13:44 | REP ---
Clinical: Pain. Status post fall. Technique: Neutral and cross-table lateral views of the right hip. Findings: Status post arthroplasty. No acute fracture or dislocation. Impression: No acute fracture dislocation. Electronically Signed by Tito Sexton MD 06/18/2019 01:35 P
[2019-06-18 14:00] VITALS: BP 118/58
[2019-06-18] MEDS ORDERED: DIMETHICONE 2% OINTMENT(VANIPLY) 70GM TUBE TOP ONE (18:00)
[2019-06-18 20:00] VITALS: BP 116/57
[2019-06-18] MEDS: SENNA 8.6 MG TAB (SENOKOT) PO SCH (20:02)
[2019-06-19 04:00] VITALS: BP 117/70
[2019-06-19] MEDS: oxyCODONE 5MG TAB PO PRN (05:27)
[2019-06-19] MEDS: APIXABAN 5 MG TAB (ELIQUIS) PO SCH ×2 (09:10→20:37)
[2019-06-19] MEDS: POTASSIUM CHLORIDE 10 MEQ SR TABLET PO SCH ×2 (09:10→20:37)
[2019-06-19] MEDS: TORSEMIDE 20 MG TAB PO SCH (09:10)
[2019-06-19] MEDS: ACETAMINOPHEN 500 MG TAB PO SCH ×3 (09:10→20:37)
[2019-06-19] MEDS: PANTOPRAZOLE 40MG TAB (PROTONIX) PO SCH (09:10)
[2019-06-19] MEDS: DOCUSATE SODIUM 100 MG CAP PO SCH ×2 (09:10→20:37)
[2019-06-19 14:00] VITALS: BP 119/54
[2019-06-19 20:00] VITALS: BP 123/60
[2019-06-19] MEDS: SENNA 8.6 MG TAB (SENOKOT) PO SCH (20:37)
[2019-06-20 06:00] VITALS: BP 154/67
[2019-06-20] MEDS: POTASSIUM CHLORIDE 10 MEQ SR TABLET PO SCH ×2 (09:57→21:38)
[2019-06-20] MEDS: DOCUSATE SODIUM 100 MG CAP PO SCH ×2 (09:57→21:38)
[2019-06-20] MEDS: ACETAMINOPHEN 500 MG TAB PO SCH ×3 (09:58→21:39)
[2019-06-20] MEDS: PANTOPRAZOLE 40MG TAB (PROTONIX) PO SCH (09:58)
[2019-06-20] MEDS: APIXABAN 5 MG TAB (ELIQUIS) PO SCH ×2 (09:58→21:38)
[2019-06-20] MEDS: TORSEMIDE 20 MG TAB PO SCH (09:58)
[2019-06-20] MEDS: oxyCODONE 5MG TAB PO PRN (11:11)
[2019-06-20 14:00] VITALS: BP 112/59
--- NOTE | 2019-06-20 16:05 | IPNPDOC ---
Date Seen The patient was seen on 06/20/19. Progress Note SUBJECTIVE:c/o pain 6/10 pain scale in right hand with persistent swelling. anxious to go home. OBJECTIVE: Physical Examination VITALS: PLS SEE BELOW General Exam: no conversationaldyspnea. appropriate and oriented to person and place SKIN; multiple bruises on face , right arm Eye Exam: Positive: PERRLA, Conjunctiva & lids normal, EOMI; Negative: Sclera icteric ENT Exam: Positive: Atraumatic, Mucous membr. moist/pink, Pharynx Normal Neck Exam: Positive: Supple; Negative: JVD, thyromegaly Chest Exam: Positive: Clear to auscultation, Normal air movement Heart Exam: Positive: Rate Normal, Regular Rhythm, Normal S1, Normal S2; Negative: Murmurs, Rubs Abdomen Exam: Positive: Normal bowel sounds, Soft; Negative: Tenderness, Hepatospenomegaly Extremity Exam: Positive: Normal pulses; Negative: Clubbing, Cyanosis, Edema LABORATORY DATA, IMAGING STUDIES, MICROBIOLOGY: PLS SEE BELOW ASSESSMENT AND PLAN: 89f with hx of ckd, DVT, dementia admitted to the rehab unit for right olecranon fracture s/p ORIF. right olecranon fracture s/p ORIF. on scheduled tylenol. and prn oxycodone. ortho fu as outpt PT/OT. DVT on avoid opiates, sedatives edema continue home torsemide disposition: per rehab . VS, I&O, 24H, Fishbone Vital Signs/I&O Vital Signs Date Time Temp Pulse Resp B/P (MAP) Pulse Ox O2 Delivery O2 Flow Rate FiO2 06/20/19 14:00 98.2 96 19 112/59 (76) 97 06/17/19 21:37 2.0 I&O- Last 24 Hours up to 6 AM 06/20/19 06:00 Intake Total 980 ml Balance 980 ml KENN CEE MD Jun 20, 2019 16:05
[2019-06-20] MEDS: SENNA 8.6 MG TAB (SENOKOT) PO SCH (21:38)
[2019-06-21 06:00] VITALS: BP 142/66
[2019-06-21] MEDS: PANTOPRAZOLE 40MG TAB (PROTONIX) PO SCH (10:01)
[2019-06-21] MEDS: DOCUSATE SODIUM 100 MG CAP PO SCH ×2 (10:02→20:44)
[2019-06-21] MEDS: POTASSIUM CHLORIDE 10 MEQ SR TABLET PO SCH ×2 (10:02→20:44)
[2019-06-21] MEDS: TORSEMIDE 20 MG TAB PO SCH (10:02)
[2019-06-21] MEDS: APIXABAN 5 MG TAB (ELIQUIS) PO SCH ×2 (10:02→20:44)
[2019-06-21] MEDS: ACETAMINOPHEN 500 MG TAB PO SCH ×3 (10:03→20:44)
--- NOTE | 2019-06-21 11:57 | IPNPDOC ---
PM&R Progress Note DATE OF SERVICE: Jun 21, 2019 Network Account Manager Progress Note Subjective: Patient states her stomach is upset today and she feels weaker, but denies fever, chills, diarrhea/constipation. She is developing a bit of a cough. REVIEW OF SYSTEMS: The following is a completed review of systems and has been reviewed. Review of systems otherwise unremarkable. PAIN: Patient self reports right elbow pain EYES: No recent vision changes EARS, NOSE, & THROAT: No throat pain, or dysphagia, or rhinorrhea CARDIOVASCULAR: Denies chest pain or palpitations PULMONARY: Denies shortness of breath GASTROINTESTINAL: Denies constipation/diarrhea GENITOURINARY: denies dysuria MUSCULOSKELETAL: right olecranon fracture NEUROLOGICAL:no seizures/tremors SKIN: scattered ecchymosis PSYCHIATRIC: Unremarkable All other review of systems found to be negative. PHYSICAL EXAMINATION: VITAL SIGNS: Please see below. GENERAL: Pleasant and cooperative. No acute distress. HEENT: PERRL. Extraocular movements intact. Clear conjunctiva. periorbital ecchymosis CARDIOVASCULAR: Regular rate and rhythm. No murmurs, rubs, or gallops LUNGS: Clear to auscultation bilaterally. No wheezes. No rhonchi. ABDOMEN: Soft, nontender, nondistended. Positive bowel sounds. Normal active bowel sounds NEUROLOGICAL: Alert and oriented times three. Cranial nerves II through XII grossly intact. Sensation grossly intact in all 4 extremities to light touch EXTREMITIES: 5/ 5 strength left upper extremities. right side exam limited, oracle technical developer >3/5, thumb extension/flexion/abduction/adduction >3/5 4\5 strength right lower extremity. 4/5 strength in left lower extremity. +strong right radial pulse, hand warm to touch ASSESSMENT:89-year-old F with past medical history of HTN, CKD who presents status post fall with right olecranon fracture. PLAN: 1. Rehab: PT- stretch/strengthen/maintain ROM bilat LE, imrpove gait endurance, fall prevention, ambulating with hemiwalker OT-stretch/strengthen/maintain ROM Left UE, maintain NWB RUE, teach ADL management 2. Neuro: avoid delirogenic meds 3. Ortho: s.p fall with right olecranon fracture s/p ORIF, NWB, ortho consulted - right hip X-ray to r/o fracture given groin pain with ambulation- negative 4. CArdiac: pmh HTN and PVD, c/u Torsemide, medicine consulted to assist in overall management 5. [facility]: RLE DVT on Eliquis 6. GI ppx: protonix 7. DVT ppx: on therapeutic Eliquis 8. Pain: Tylenol, will d/c oxycodone or periods of delirium/ing and trial Cymbalta, c/u ice 9. Dispo: tbd Allergies Coded Allergies: No Known Allergies (Unverified , 06/13/19) Vital Signs Vital Signs Date Time Temp Pulse Resp B/P (MAP) Pulse Ox O2 Delivery O2 Flow Rate FiO2 06/21/19 06:00 97.0 73 18 142/66 (91) 98 06/17/19 21:37 2.0 Current Medications Current Medications Current Medications Medications (Trade) Dose Ordered Sig/Ellyn Route PRN Reason Start Time Stop Time Status Last Admin Dose Admin Acetaminophen (Tylenol Tab) 1,000 mg TID PO 06/16/19 21:00 06/21/19 10:03 Apixaban (Eliquis) 5 mg BID PO 06/16/19 21:00 06/21/19 10:02 Bisacodyl (Dulcolax Suppository) 10 mg DAILYPRN PRN [place] CONSTIPATION 06/16/19 17:30 Docusate Sodium (Colace) 100 mg BID PO 06/16/19 21:00 06/21/19 10:02 Home Med (Med Rec Complete!) ASDIRECTED XX 06/16/19 18:15 06/16/19 18:46 DC Magnesium Hydroxide (Milk Of Magnesia) 30 ml DAILYPRN PRN PO CONSTIPATION 06/16/19 17:30 Oxycodone HCl (Roxicodone, Oxyir) 5 mg Q4HP PRN PO PAIN 06/16/19 17:30 06/20/19 11:11 Pantoprazole Sodium (Protonix) 40 mg DAILY PO 06/17/19 09:00 06/21/19 10:01 Potassium Chloride (Micro-K Extencaps) 10 meq BID PO 06/16/19 21:00 06/21/19 10:02 Senna (Senokot) 1 tab QHS PO 06/16/19 21:00 06/20/19 21:38 Torsemide (Demadex) 20 mg DAILY PO 06/17/19 09:00 06/21/19 10:02 FADI JEONG MD Jun 21, 2019 11:57
[2019-06-21] MEDS ORDERED: MAALOX 30 ML SUSP *UDC PO ONE (13:00)
[2019-06-21] MEDS: FLUTICASONE PROP 0.05% NASAL SPRAY 16 GM (FLONASE) NARES SCH ×2 (13:35→20:45)
[2019-06-21] MEDS: DULoxetine 30 MG CAP (CYMBALTA) PO SCH (13:36)
[2019-06-21 14:00] VITALS: BP 124/73
[2019-06-21] MEDS: SODIUM CHLORIDE NASAL 0.65% SPRAY BTL (OCEAN) SCH ×2 (17:02→20:45)
[2019-06-21 19:50] VITALS: BP 149/67
[2019-06-21] MEDS: SENNA 8.6 MG TAB (SENOKOT) PO SCH (20:44)
[2019-06-22 06:00] VITALS: BP 153/69
[2019-06-22 07:09] LABS: BASO # 0.1 10^3/uL (0.0-0.2); BASO % 0.9 % (0.0-1.0); EOS # 0.1 10^3/uL (0.0-0.5); HEMATOCRIT 31.5 % (36.0-47.0); HEMOGLOBIN 10.4 g/dl (12.0-15.5); LYMPH % 18.3 % (24.0-44.0); MEAN CORPUSCULAR HEMOGLOBIN 32.6 pg (27.0-33.0); MEAN CORPUSCULAR VOLUME 98.7 fl (80.0-96.0); MONO # 0.6 10^3/uL (0.0-0.8); MONO % 10.9 % (0.0-5.0); NEUTROPHILS # 3.7 10^3/uL (1.5-8.5); NEUTROPHILS % 67.3 % (36.0-66.0); PLATELET COUNT, AUTOMATED 206 10^3/uL (150-450); RED BLOOD COUNT 3.19 10^6/uL (4.00-5.40); WHITE BLOOD COUNT 5.4 10^3/uL (4.0-10.0)
[2019-06-22 07:32] LABS: CALCIUM LEVEL 8.7 MG/DL (8.8-10.2); CREATININE FOR GFR 0.96 MG/DL (0.55-1.30); GLOMERULAR FILTRATION RATE 58.4 (>32); POTASSIUM SERUM 4.3 MEQ/L (3.5-5.1)
[2019-06-22] MEDS: FLUTICASONE PROP 0.05% NASAL SPRAY 16 GM (FLONASE) NARES SCH ×2 (09:00→21:39)
[2019-06-22] MEDS: APIXABAN 5 MG TAB (ELIQUIS) PO SCH ×2 (09:51→21:38)
[2019-06-22] MEDS: TORSEMIDE 20 MG TAB PO SCH (09:52)
[2019-06-22] MEDS: PANTOPRAZOLE 40MG TAB (PROTONIX) PO SCH (09:52)
[2019-06-22] MEDS: DOCUSATE SODIUM 100 MG CAP PO SCH ×2 (09:52→21:38)
[2019-06-22] MEDS: POTASSIUM CHLORIDE 10 MEQ SR TABLET PO SCH ×2 (09:52→21:38)
[2019-06-22] MEDS: DULoxetine 30 MG CAP (CYMBALTA) PO SCH (09:52)
[2019-06-22] MEDS: ACETAMINOPHEN 500 MG TAB PO SCH ×3 (09:52→21:38)
[2019-06-22] MEDS: SODIUM CHLORIDE NASAL 0.65% SPRAY BTL (OCEAN) SCH ×3 (09:53→21:39)
[2019-06-22 14:00] VITALS: BP 132/67
--- NOTE | 2019-06-22 14:34 | IPNPDOC ---
PM&R Progress Note DATE OF SERVICE: Jun 22, 2019 Mattress Renovator Progress Note Subjective: Patient seen on the [place] smiling and laughing, stating she feels well and is getting stronger. She is up at night exercising, but does not feel tired today. REVIEW OF SYSTEMS: The following is a completed review of systems and has been reviewed. Review of systems otherwise unremarkable. PAIN: Patient self reports right elbow pain EYES: No recent vision changes EARS, NOSE, & THROAT: No throat pain, or dysphagia, or rhinorrhea CARDIOVASCULAR: Denies chest pain or palpitations PULMONARY: Denies shortness of breath GASTROINTESTINAL: Denies constipation/diarrhea GENITOURINARY: denies dysuria MUSCULOSKELETAL: right olecranon fracture NEUROLOGICAL:no seizures/tremors SKIN: scattered ecchymosis PSYCHIATRIC: Unremarkable All other review of systems found to be negative. PHYSICAL EXAMINATION: VITAL SIGNS: Please see below. GENERAL: Pleasant and cooperative. No acute distress. HEENT: PERRL. Extraocular movements intact. Clear conjunctiva. periorbital ecchymosis CARDIOVASCULAR: Regular rate and rhythm. No murmurs, rubs, or gallops LUNGS: Clear to auscultation bilaterally. No wheezes. No rhonchi. ABDOMEN: Soft, nontender, nondistended. Positive bowel sounds. Normal active bowel sounds NEUROLOGICAL: Alert and oriented times three. Cranial nerves II through XII grossly intact. Sensation grossly intact in all 4 extremities to light touch EXTREMITIES: 5/ 5 strength left upper extremities. right side exam limited, towel rolling machine operator >3/5, thumb extension/flexion/abduction/adduction >3/5 4\5 strength right lower extremity. 4/5 strength in left lower extremity. +strong right radial pulse, hand warm to touch ASSESSMENT:89-year-old F with past medical history of HTN, CKD who presents status post fall with right olecranon fracture. PLAN: 1. Rehab: PT- stretch/strengthen/maintain ROM bilat LE, improve gait endurance, fall prevention, ambulating with quad cane OT-stretch/strengthen/maintain ROM Left UE, maintain NWB RUE, teach ADL management 2. Neuro: avoid delirogenic meds 3. Ortho: s.p fall with right olecranon fracture s/p ORIF, NWB, ortho consulted - right hip X-ray to r/o fracture given groin pain with ambulation- negative 4. CArdiac: pmh HTN and PVD, c/u Torsemide, medicine consulted to assist in overall management 5. [facility]sc: RLE DVT on Eliquis 6. GI ppx: protonix 7. DVT ppx: on therapeutic Eliquis 8. Pain: Tylenol, will d/c oxycodone or periods of delirium/ and c/u Cymbalta, c/u ice 9. Dispo:06/29/19 to home Allergies Coded Allergies: No Known Allergies (Unverified , 06/13/19) Vital Signs Vital Signs Date Time Temp Pulse Resp B/P (MAP) Pulse Ox O2 Delivery O2 Flow Rate FiO2 06/22/19 06:00 98.4 82 17 153/69 (97) 94 06/17/19 21:37 2.0 Laboratory Data CBC/BMP Laboratory Tests 06/22/19 06:19 Red Blood Count 3.19 L, Mean Corpuscular Volume 98.7 H, Mean Corpuscular Hemoglobin 32.6, Mean Corpuscular Hemoglobin Concent 33.0, Red Cell Distribution Width 13.6, Neutrophils (%) (Auto) 67.3 H, Lymphocytes (%) (Auto) 18.3 L, Monocytes (%) (Auto) 10.9 H, Eosinophils (%) (Auto) 2.0, Basophils (%) (Auto) 0.9, Neutrophils # (Auto) 3.7, Lymphocytes # (Auto) 1.0 L, Monocytes # (Auto) 0.6, Eosinophils # (Auto) 0.1, Basophils # (Auto) 0.1, Calcium Level 8.7 L Labs 24H Laboratory Tests 2 06/22/19 06:19: Immature Granulocyte % (Auto) 0.6, White Blood Count 5.4, Red Blood Count 3.19L, Hemoglobin 10.4L, Hematocrit 31.5L, Mean Corpuscular Volume 98.7H, Mean Corpuscular Hemoglobin 32.6, Mean Corpuscular Hemoglobin Concent 33.0, Red Cell Distribution Width 13.6, Platelet Count 206, Neutrophils (%) (Auto) 67.3H, Lymphocytes (%) (Auto) 18.3L, Monocytes (%) (Auto) 10.9H, Eosinophils (%) (Auto) 2.0, Basophils (%) (Auto) 0.9, Neutrophils # (Auto) 3.7, Lymphocytes # (Auto) 1.0L, Monocytes # (Auto) 0.6, Eosinophils # (Auto) 0.1, Basophils # (Auto) 0.1, Nucleated Red Blood Cells % (auto) 0.0, Anion Gap 4L, Glomerular Filtration Rate 58.4, Blood Urea Nitrogen 21H, Creatinine 0.96, Sodium Level 139, Potassium Level 4.3, Chloride Level 105, Carbon Dioxide Level 30, Calcium Level 8.7L Current Medications Current Medications Current Medications Medications (Trade) Dose Ordered Sig/Ellyn Route PRN Reason Start Time Stop Time Status Last Admin Dose Admin Acetaminophen (Tylenol Tab) 1,000 mg TID PO 06/16/19 21:00 06/22/19 09:52 Apixaban (Eliquis) 5 mg BID PO 06/16/19 21:00 06/22/19 09:51 Bisacodyl (Dulcolax Suppository) 10 mg DAILYPRN PRN [place] CONSTIPATION 06/16/19 17:30 Docusate Sodium (Colace) 100 mg BID PO 06/16/19 21:00 06/22/19 09:52 Duloxetine HCl (Cymbalta) 30 mg DAILY PO 06/21/19 09:00 06/22/19 09:52 Fluticasone Propionate (Flonase 0.05% Nasal [place]) 1 spray BID NARES 06/21/19 09:00 06/21/19 20:45 Home Med (Med Rec Complete!) ASDIRECTED XX 06/16/19 18:15 06/16/19 18:46 DC Magnesium Hydroxide (Milk Of Magnesia) 30 ml DAILYPRN PRN PO CONSTIPATION 06/16/19 17:30 Oxycodone HCl (Roxicodone, Oxyir) 5 mg Q4HP PRN PO PAIN 06/16/19 17:30 06/21/19 11:56 DC 06/20/19 11:11 Pantoprazole Sodium (Protonix) 40 mg DAILY PO 06/17/19 09:00 06/22/19 09:52 Potassium Chloride (Micro-K Extencaps) 10 meq BID PO 06/16/19 21:00 06/22/19 09:52 Senna (Senokot) 1 tab QHS PO 06/16/19 21:00 06/21/19 20:44 Sodium Chloride ([place] Nasal Evans) 2 spray TID NA 06/21/19 16:00 06/22/19 09:53 Torsemide (Demadex) 20 mg DAILY PO 06/17/19 09:00 06/22/19 09:52 FADI JEONG MD Jun 22, 2019 14:34
--- NOTE | 2019-06-22 14:35 | IPNPDOC ---
Text Note Date of Service The patient was seen on 06/22/19. NOTE SUBJECTIVE: c/o pain pain scale in right upper extremity with persistent swel ling of the hand. anxious to go home. Now walking with a cane and really happy about this progress. OBJECTIVE: Physical Examination VITALS: PLS SEE BELOW General Exam: no conversationaldyspnea. appropriate and oriented to person and place SKIN; multiple bruises on face , right arm Eye Exam: Positive: PERRLA, Conjunctiva & lids normal, EOMI; Negative: Sclera icteric ENT Exam: Positive: Atraumatic, Mucous membr. moist/pink, Pharynx Normal Neck Exam: Positive: Supple; Negative: JVD, thyromegaly Chest Exam: Positive: Clear to auscultation, Normal air movement Heart Exam: Positive: Rate Normal, Regular Rhythm, Normal S1, Normal S2; Negative: Murmurs, Rubs Abdomen Exam: Positive: Normal bowel sounds, Soft; Negative: Tenderness, Hepatospenomegaly Extremity Exam: Positive: Normal pulses; Negative: Clubbing, Cyanosis, Edema LABORATORY DATA, IMAGING STUDIES, MICROBIOLOGY: PLS SEE BELOW ASSESSMENT AND PLAN: 89 year old female with hx of ckd, DVT, dementia admitted to the rehab unit for right olecranon fracture s/p ORIF. Right olecranon fracture s/p ORIF. on scheduled tylenol. and prn oxycodone. ortho fu as outpt PT/OT. 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 disposition: per rehab . VS,Kelechi, I+O VS, Kelechi, I+O Laboratory Tests 06/22/19 06:19 Red Blood Count 3.19 L, Mean Corpuscular Volume 98.7 H, Mean Corpuscular Hemoglobin 32.6, Mean Corpuscular Hemoglobin Concent 33.0, Red Cell Distribution Width 13.6, Neutrophils (%) (Auto) 67.3 H, Lymphocytes (%) (Auto) 18.3 L, Monocytes (%) (Auto) 10.9 H, Eosinophils (%) (Auto) 2.0, Basophils (%) (Auto) 0.9, Neutrophils # (Auto) 3.7, Lymphocytes # (Auto) 1.0 L, Monocytes # (Auto) 0.6, Eosinophils # (Auto) 0.1, Basophils # (Auto) 0.1, Calcium Level 8.7 L Vital Signs Date Time Temp Pulse Resp B/P (MAP) Pulse Ox O2 Delivery O2 Flow Rate FiO2 06/22/19 06:00 98.4 82 17 153/69 (97) 94 06/17/19 21:37 2.0 I&O- Last 24 Hours up to 6 AM 06/22/19 06:00 Intake Total 720 ml Balance 720 ml FARZANEH DUGGAN MD Jun 22, 2019 14:35
[2019-06-22 20:25] VITALS: BP 126/58
[2019-06-22] MEDS: SENNA 8.6 MG TAB (SENOKOT) PO SCH (21:38)
[2019-06-23 06:00] VITALS: BP 142/78
[2019-06-23] MEDS: SODIUM CHLORIDE NASAL 0.65% SPRAY BTL (OCEAN) SCH ×3 (09:00→20:45)
[2019-06-23] MEDS: FLUTICASONE PROP 0.05% NASAL SPRAY 16 GM (FLONASE) NARES SCH ×2 (09:00→20:43)
[2019-06-23] MEDS: APIXABAN 5 MG TAB (ELIQUIS) PO SCH ×2 (10:39→20:42)
[2019-06-23] MEDS: DOCUSATE SODIUM 100 MG CAP PO SCH ×2 (10:39→20:41)
[2019-06-23] MEDS: PANTOPRAZOLE 40MG TAB (PROTONIX) PO SCH (10:40)
[2019-06-23] MEDS: TORSEMIDE 20 MG TAB PO SCH (10:40)
[2019-06-23] MEDS: POTASSIUM CHLORIDE 10 MEQ SR TABLET PO SCH ×2 (10:40→20:42)
[2019-06-23] MEDS: DULoxetine 30 MG CAP (CYMBALTA) PO SCH (10:40)
[2019-06-23] MEDS: ACETAMINOPHEN 500 MG TAB PO SCH ×3 (10:40→20:43)
[2019-06-23 14:00] VITALS: BP 140/73
[2019-06-23 20:00] VITALS: BP 162/73
[2019-06-23] MEDS: SENNA 8.6 MG TAB (SENOKOT) PO SCH (20:41)
--- NOTE | 2019-06-23 23:11 | IPNPDOC ---
Text Note Date of Service The patient was seen on 06/23/19. NOTE SUBJECTIVE: c/o pain in right upper extremity with persistent swelling of the hand. Anxious to go home. Now walking with a cane and really happy about this progress. OBJECTIVE: Physical Examination VITALS: PLS SEE BELOW General Exam: no conversational dyspnea. appropriate and oriented to person and place SKIN; multiple bruises on face , right arm improving Eye Exam: Positive: PERRLA, Conjunctiva & lids normal, EOMI; Negative: Sclera icteric ENT Exam: Positive: Atraumatic, Mucous membr. moist/pink, Pharynx Normal Neck Exam: Positive: Supple; Negative: JVD, thyromegaly Chest Exam: Positive: Clear to auscultation, Normal air movement Heart Exam: Positive: Rate Normal, Regular Rhythm, Normal S1, Normal S2; Negative: Murmurs, Rubs Abdomen Exam: Positive: Normal bowel sounds, Soft; Negative: Tenderness, Hepatospenomegaly Extremity Exam: Positive: Normal pulses; Negative: Clubbing, Cyanosis, Edema LABORATORY DATA, IMAGING STUDIES, MICROBIOLOGY: PLS SEE BELOW ASSESSMENT AND PLAN: 89 year old female with hx of ckd, DVT, dementia admitted to the rehab unit for right olecranon fracture s/p ORIF. Right olecranon fracture s/p ORIF. on scheduled tylenol. and prn oxycodone. ortho fu as outpt PT/OT. 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 VS,Fishbone, I+O VS, Fishbone, I+O Vital Signs Date Time Temp Pulse Resp B/P (MAP) Pulse Ox O2 Delivery O2 Flow Rate FiO2 06/23/19 06:00 97.1 71 18 142/78 (99) 97 06/17/19 21:37 2.0 I&O- Last 24 Hours up to 6 AM 06/23/19 06:00 Intake Total 1800 ml Balance 1800 ml FARZANEH DUGGAN MD Jun 23, 2019 14:41
[2019-06-24 05:00] VITALS: BP 141/94
[2019-06-24] MEDS: DOCUSATE SODIUM 100 MG CAP PO SCH ×2 (08:42→20:48)
[2019-06-24] MEDS: APIXABAN 5 MG TAB (ELIQUIS) PO SCH ×2 (08:43→20:48)
[2019-06-24] MEDS: TORSEMIDE 20 MG TAB PO SCH (08:43)
[2019-06-24] MEDS: DULoxetine 30 MG CAP (CYMBALTA) PO SCH (08:43)
[2019-06-24] MEDS: POTASSIUM CHLORIDE 10 MEQ SR TABLET PO SCH ×2 (08:43→20:48)
[2019-06-24] MEDS: PANTOPRAZOLE 40MG TAB (PROTONIX) PO SCH (08:43)
[2019-06-24] MEDS: ACETAMINOPHEN 500 MG TAB PO SCH ×3 (08:44→20:48)
[2019-06-24] MEDS: FLUTICASONE PROP 0.05% NASAL SPRAY 16 GM (FLONASE) NARES SCH ×2 (08:44→20:49)
[2019-06-24] MEDS: SODIUM CHLORIDE NASAL 0.65% SPRAY BTL (OCEAN) SCH ×3 (08:44→20:51)
--- NOTE | 2019-06-24 12:56 | IPNPDOC ---
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 REVIEW OF SYSTEMS: The following is a completed review of systems and has been reviewed. Review of systems otherwise unremarkable. PAIN: Patient self reports right elbow pain EYES: No recent vision changes EARS, NOSE, & THROAT: No throat pain, or dysphagia, or rhinorrhea CARDIOVASCULAR: Denies chest pain or palpitations PULMONARY: Denies shortness of breath GASTROINTESTINAL: Denies constipation/diarrhea GENITOURINARY: denies dysuria MUSCULOSKELETAL: right olecranon fracture NEUROLOGICAL:no seizures/tremors SKIN: scattered ecchymosis PSYCHIATRIC: Unremarkable All other review of systems found to be negative. PHYSICAL EXAMINATION: VITAL SIGNS: Please see below. GENERAL: Pleasant and cooperative. No acute distress. HEENT: PERRL. Extraocular movements intact. Clear conjunctiva. periorbital ecchymosis CARDIOVASCULAR: Regular rate and rhythm. No murmurs, rubs, or gallops LUNGS: Clear to auscultation bilaterally. No wheezes. No rhonchi. ABDOMEN: Soft, nontender, nondistended. Positive bowel sounds. Normal active bowel sounds NEUROLOGICAL: Alert and oriented times three. Cranial nerves II through XII grossly intact. Sensation grossly intact in all 4 extremities to light touch EXTREMITIES: 5/ 5 strength left upper extremities. right side exam limited, motor vehicle emissions inspector >3/5, thumb extension/flexion/abduction/adduction >3/5 4\5 strength right lower extremity. 4/5 strength in left lower extremity. +strong right radial pulse, hand warm to touch ASSESSMENT:89-year-old F with past medical history of HTN, CKD who presents s tatus post fall with right olecranon fracture. PLAN: 1. Rehab: PT- stretch/strengthen/maintain ROM bilat LE, improve gait endurance, fall prevention, ambulating with quad cane OT-stretch/strengthen/maintain ROM Left UE, maintain NWB RUE, teach ADL neil gement 2. Neuro: avoid delirogenic meds 3. Ortho: s.p fall with right olecranon fracture s/p ORIF, NWB, ortho consulted - right hip X-ray to r/o fracture given groin pain with ambulation- negative 4. CArdiac: pmh HTN and PVD, c/u Torsemide, medicine consulted to assist in overall management 5. VAsc: RLE DVT on Eliquis 6. GI ppx: protonix 7. DVT ppx: on therapeutic Eliquis 8. Pain: Tylenol, d/c'd oxycodone for periods of delirium/ing and c/u Cymbalta, c/u ice 9. Dispo:06/29/19 to home, progressing towards goals Allergies Coded Allergies: No Known Allergies (Unverified , 06/13/19) Vital Signs Vital Signs Date Time Temp Pulse Resp B/P (MAP) Pulse Ox O2 Delivery O2 Flow Rate FiO2 06/24/19 05:00 98.9 61 17 141/94 (110) 93 Current Medications Current Medications Current Medications Medications (Trade) Dose Ordered Sig/Ellyn Route PRN Reason Start Time Stop Time Status Last Admin Dose Admin Acetaminophen (Tylenol Tab) 1,000 mg TID PO 06/16/19 21:00 06/24/19 08:44 Apixaban (Eliquis) 5 mg BID PO 06/16/19 21:00 06/24/19 08:43 Bisacodyl (Dulcolax Suppository) 10 mg DAILYPRN PRN [place] CONSTIPATION 06/16/19 17:30 Docusate Sodium (Colace) 100 mg BID PO 06/16/19 21:00 06/24/19 08:42 Duloxetine HCl (Cymbalta) 30 mg DAILY PO 06/21/19 09:00 06/24/19 08:43 Fluticasone Propionate (Flonase 0.05% Nasal [place]) 1 spray BID NARES 06/21/19 09:00 06/24/19 08:44 Home Med (Med Rec Complete!) ASDIRECTED XX 06/16/19 18:15 06/16/19 18:46 DC Magnesium Hydroxide (Milk Of Magnesia) 30 ml DAILYPRN PRN PO CONSTIPATION 06/16/19 17:30 Oxycodone HCl (Roxicodone, Oxyir) 5 mg Q4HP PRN PO PAIN 06/16/19 17:30 06/21/19 11:56 DC 06/20/19 11:11 Pantoprazole Sodium (Protonix) 40 mg DAILY PO 06/17/19 09:00 06/24/19 08:43 Potassium Chloride (Micro-K Extencaps) 10 meq BID PO 06/16/19 21:00 06/24/19 08:43 Senna (Senokot) 1 tab QHS PO 06/16/19 21:00 06/23/19 20:41 Sodium Chloride ([place] Nasal [place]) 2 spray TID NA 06/21/19 16:00 06/23/19 09:00 Torsemide (Demadex) 20 mg DAILY PO 06/17/19 09:00 06/24/19 08:43 FADI JEONG MD Jun 24, 2019 12:56
--- NOTE | 2019-06-24 12:57 | IPNPDOC ---
PM&R Progress Note DATE OF SERVICE: Jun 24, 2019 Shade Bander Progress Note Subjective: Patient seen in therapy stating her right buttock continues to feel better for the most part. REVIEW OF SYSTEMS: The following is a completed review of systems and has been reviewed. Review of systems otherwise unremarkable. PAIN: Patient self reports right elbow pain EYES: No recent vision changes EARS, NOSE, & THROAT: No throat pain, or dysphagia, or rhinorrhea CARDIOVASCULAR: Denies chest pain or palpitations PULMONARY: Denies shortness of breath GASTROINTESTINAL: Denies constipation/diarrhea GENITOURINARY: denies dysuria MUSCULOSKELETAL: right olecranon fracture NEUROLOGICAL:no seizures/tremors SKIN: scattered ecchymosis PSYCHIATRIC: Unremarkable All other review of systems found to be negative. PHYSICAL EXAMINATION: VITAL SIGNS: Please see below. GENERAL: Pleasant and cooperative. No acute distress. HEENT: PERRL. Extraocular movements intact. Clear conjunctiva. periorbital ecchymosis CARDIOVASCULAR: Regular rate and rhythm. No murmurs, rubs, or gallops LUNGS: Clear to auscultation bilaterally. No wheezes. No rhonchi. ABDOMEN: Soft, nontender, nondistended. Positive bowel sounds. Normal active bowel sounds NEUROLOGICAL: Alert and oriented times three. Cranial nerves II through XII grossly intact. Sensation grossly intact in all 4 extremities to light touch EXTREMITIES: 5/ 5 strength left upper extremities. right side exam limited, barrel handler >3/5, thumb extension/flexion/abduction/adduction >3/5 4\5 strength right lower extremity. 4/5 strength in left lower extremity. +strong right radial pulse, hand warm to touch ASSESSMENT:89-year-old F with past medical history of HTN, CKD who presents status post fall with right olecranon fracture. PLAN: 1. Rehab: PT- stretch/strengthen/maintain ROM bilat LE, improve gait endurance, fall prevention, ambulating with quad cane OT-stretch/strengthen/maintain ROM Left UE, maintain NWB RUE, teach ADL management 2. Neuro: avoid delirogenic meds 3. Ortho: s.p fall with right olecranon fracture s/p ORIF, NWB, ortho consulted - right hip X-ray to r/o fracture given groin pain with ambulation- negative 4. CArdiac: pmh HTN and PVD, c/u Torsemide, medicine consulted to assist in ov erall management 5. VAsc: RLE DVT on Eliquis 6. GI ppx: protonix 7. DVT ppx: on therapeutic Eliquis 8. Pain: Tylenol, d/c'd oxycodone for periods of delirium/sundowing and c/u Cymbalta, c/u ice -will trial lidoderm to right buttock 9. Dispo:06/29/19 to home, progressing towards goals Allergies Coded Allergies: No Known Allergies (Unverified , 06/13/19) Vital Signs Vital Signs Date Time Temp Pulse Resp B/P (MAP) Pulse Ox O2 Delivery O2 Flow Rate FiO2 06/24/19 05:00 98.9 61 17 141/94 (110) 93 Current Medications Current Medications Current Medications Medications (Trade) Dose Ordered Sig/Ellyn Route PRN Reason Start Time Stop Time Status Last Admin Dose Admin Acetaminophen (Tylenol Tab) 1,000 mg TID PO 06/16/19 21:00 06/24/19 08:44 Apixaban (Eliquis) 5 mg BID PO 06/16/19 21:00 06/24/19 08:43 Bisacodyl (Dulcolax Suppository) 10 mg DAILYPRN PRN [place] CONSTIPATION 06/16/19 17:30 Docusate Sodium (Colace) 100 mg BID PO 06/16/19 21:00 06/24/19 08:42 Duloxetine HCl (Cymbalta) 30 mg DAILY PO 06/21/19 09:00 06/24/19 08:43 Fluticasone Propionate (Flonase 0.05% Nasal [place]) 1 spray BID NARES 06/21/19 09:00 06/24/19 08:44 Home Med (Med Rec Complete!) ASDIRECTED XX 06/16/19 18:15 06/16/19 18:46 DC Magnesium Hydroxide (Milk Of Magnesia) 30 ml DAILYPRN PRN PO CONSTIPATION 06/16/19 17:30 Oxycodone HCl (Roxicodone, Oxyir) 5 mg Q4HP PRN PO PAIN 06/16/19 17:30 06/21/19 11:56 DC 06/20/19 11:11 Pantoprazole Sodium (Protonix) 40 mg DAILY PO 06/17/19 09:00 06/24/19 08:43 Potassium Chloride (Micro-K Extencaps) 10 meq BID PO 06/16/19 21:00 06/24/19 08:43 Senna (Senokot) 1 tab QHS PO 06/16/19 21:00 06/23/19 20:41 Sodium Chloride ([place] Nasal [place]) 2 spray TID NA 06/21/19 16:00 06/23/19 09:00 Torsemide (Demadex) 20 mg DAILY PO 06/17/19 09:00 06/24/19 08:43 FADI JEONG MD Jun 24, 2019 12:57
[2019-06-24] MEDS: LIDOCAINE 5% (LIDODERM) PATCH TD SCH (13:50)
[2019-06-24 16:00] VITALS: BP 152/67
[2019-06-24 20:00] VITALS: BP 122/63
[2019-06-24 20:04] VITALS: BP 112/53
[2019-06-24] MEDS: SENNA 8.6 MG TAB (SENOKOT) PO SCH (20:48)
[2019-06-24] MEDS: **NOTE PATIENT COMMENT** MISC XX SCH (20:50)
[2019-06-25 05:41] VITALS: BP 125/57
[2019-06-25] MEDS: POTASSIUM CHLORIDE 10 MEQ SR TABLET PO SCH ×2 (09:03→21:19)
[2019-06-25] MEDS: DOCUSATE SODIUM 100 MG CAP PO SCH ×2 (09:03→21:20)
[2019-06-25] MEDS: ACETAMINOPHEN 500 MG TAB PO SCH ×3 (09:03→21:19)
[2019-06-25] MEDS: PANTOPRAZOLE 40MG TAB (PROTONIX) PO SCH (09:04)
[2019-06-25] MEDS: DULoxetine 30 MG CAP (CYMBALTA) PO SCH (09:05)
[2019-06-25] MEDS: TORSEMIDE 20 MG TAB PO SCH (09:05)
[2019-06-25] MEDS: APIXABAN 5 MG TAB (ELIQUIS) PO SCH ×2 (09:05→21:19)
[2019-06-25] MEDS: FLUTICASONE PROP 0.05% NASAL SPRAY 16 GM (FLONASE) NARES SCH ×2 (09:06→21:19)
[2019-06-25] MEDS: LIDOCAINE 5% (LIDODERM) PATCH TD SCH (09:06)
[2019-06-25] MEDS: SODIUM CHLORIDE NASAL 0.65% SPRAY BTL (OCEAN) SCH ×3 (09:06→21:19)
[2019-06-25 14:00] VITALS: BP 136/60
--- NOTE | 2019-06-25 14:04 | IPNPDOC ---
Text Note Date of Service The patient was seen on 06/25/19. NOTE SUBJECTIVE: c/o pain in right upper extremity with persistent swelling of the hand. Anxious to go home. Now walking with a cane and really happy about this progress. OBJECTIVE: Physical Examination VITALS: PLS SEE BELOW General Exam: no conversational dyspnea. appropriate and oriented to person and place HEENT: moist mucous membranes, anicteric eyes. NECK: no JVD, no thyromegaly CHEST: bilateral vesicular breath sounds , no ronchi or wheezing CVS: s1, s2 regular, no rub, murmur or gallop ABDOMEN: soft , nontender, normal bowel sounds EXTREMITIES: Venous stasis and stasis dermatitis. ASSESSMENT AND PLAN: 89 year old female with hx of ckd, DVT, dementia admitted to the rehab unit for right olecranon fracture s/p ORIF. Right olecranon fracture s/p ORIF. on scheduled tylenol. and prn oxycodone. ortho fu as outpt PT/OT. 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 VS,Fishbone, I+O VS, Fishbone, I+O Vital Signs Date Time Temp Pulse Resp B/P (MAP) Pulse Ox O2 Delivery O2 Flow Rate FiO2 06/25/19 05:41 97.9 67 18 125/57 (79) 97 I&O- Last 24 Hours up to 6 AM 06/25/19 05:59 Intake Total 440 ml Balance 440 ml FARZANEH DUGGAN MD Jun 25, 2019 14:04
[2019-06-25 20:00] VITALS: BP 132/59
[2019-06-25] MEDS: SENNA 8.6 MG TAB (SENOKOT) PO SCH (21:19)
[2019-06-25] MEDS: **NOTE PATIENT COMMENT** MISC XX SCH (21:19)
[2019-06-26 06:41] VITALS: BP 123/62
[2019-06-26] MEDS: DULoxetine 30 MG CAP (CYMBALTA) PO SCH (09:15)
[2019-06-26] MEDS: APIXABAN 5 MG TAB (ELIQUIS) PO SCH ×2 (09:15→21:08)
[2019-06-26] MEDS: LIDOCAINE 5% (LIDODERM) PATCH TD SCH (09:15)
[2019-06-26] MEDS: DOCUSATE SODIUM 100 MG CAP PO SCH ×2 (09:15→21:08)
[2019-06-26] MEDS: ACETAMINOPHEN 500 MG TAB PO SCH ×3 (09:15→21:08)
[2019-06-26] MEDS: POTASSIUM CHLORIDE 10 MEQ SR TABLET PO SCH ×2 (09:15→21:08)
[2019-06-26] MEDS: TORSEMIDE 20 MG TAB PO SCH (09:16)
[2019-06-26] MEDS: SODIUM CHLORIDE NASAL 0.65% SPRAY BTL (OCEAN) SCH ×3 (09:16→21:08)
[2019-06-26] MEDS: PANTOPRAZOLE 40MG TAB (PROTONIX) PO SCH (09:16)
[2019-06-26] MEDS: FLUTICASONE PROP 0.05% NASAL SPRAY 16 GM (FLONASE) NARES SCH ×2 (09:16→21:08)
[2019-06-26 14:00] VITALS: BP 128/58
[2019-06-26 20:00] VITALS: BP 122/58
[2019-06-26] MEDS: SENNA 8.6 MG TAB (SENOKOT) PO SCH (21:08)
[2019-06-26] MEDS: **NOTE PATIENT COMMENT** MISC XX SCH (21:09)
[2019-06-27 04:00] VITALS: BP 145/65
[2019-06-27] MEDS: DULoxetine 30 MG CAP (CYMBALTA) PO SCH (08:30)
[2019-06-27] MEDS: TORSEMIDE 20 MG TAB PO SCH (08:30)
[2019-06-27] MEDS: POTASSIUM CHLORIDE 10 MEQ SR TABLET PO SCH ×2 (08:30→21:14)
[2019-06-27] MEDS: PANTOPRAZOLE 40MG TAB (PROTONIX) PO SCH (08:30)
[2019-06-27] MEDS: DOCUSATE SODIUM 100 MG CAP PO SCH ×2 (08:30→21:13)
[2019-06-27] MEDS: ACETAMINOPHEN 500 MG TAB PO SCH ×3 (08:30→21:14)
[2019-06-27] MEDS: APIXABAN 5 MG TAB (ELIQUIS) PO SCH ×2 (08:30→21:14)
[2019-06-27] MEDS: FLUTICASONE PROP 0.05% NASAL SPRAY 16 GM (FLONASE) NARES SCH ×2 (08:31→21:14)
[2019-06-27] MEDS: LIDOCAINE 5% (LIDODERM) PATCH TD SCH (08:31)
[2019-06-27] MEDS: SODIUM CHLORIDE NASAL 0.65% SPRAY BTL (OCEAN) SCH ×3 (08:31→21:14)
[2019-06-27 13:50] VITALS: BP 115/54
[2019-06-27 20:00] VITALS: BP 144/67
[2019-06-27] MEDS: SENNA 8.6 MG TAB (SENOKOT) PO SCH (21:13)
[2019-06-27] MEDS: **NOTE PATIENT COMMENT** MISC XX SCH (21:18)
[2019-06-28 05:57] VITALS: BP 130/62
[2019-06-28] MEDS: APIXABAN 5 MG TAB (ELIQUIS) PO SCH ×2 (09:02→20:32)
[2019-06-28] MEDS: POTASSIUM CHLORIDE 10 MEQ SR TABLET PO SCH ×2 (09:02→20:32)
[2019-06-28] MEDS: PANTOPRAZOLE 40MG TAB (PROTONIX) PO SCH (09:02)
[2019-06-28] MEDS: DOCUSATE SODIUM 100 MG CAP PO SCH ×2 (09:02→20:32)
[2019-06-28] MEDS: FLUTICASONE PROP 0.05% NASAL SPRAY 16 GM (FLONASE) NARES SCH ×2 (09:02→20:33)
[2019-06-28] MEDS: LIDOCAINE 5% (LIDODERM) PATCH TD SCH (09:02)
[2019-06-28] MEDS: TORSEMIDE 20 MG TAB PO SCH (09:02)
[2019-06-28] MEDS: SODIUM CHLORIDE NASAL 0.65% SPRAY BTL (OCEAN) SCH ×3 (09:02→20:33)
[2019-06-28] MEDS: ACETAMINOPHEN 500 MG TAB PO SCH ×3 (09:02→20:32)
[2019-06-28] MEDS: DULoxetine 30 MG CAP (CYMBALTA) PO SCH (09:02)
[2019-06-28 14:00] VITALS: BP 142/65
--- NOTE | 2019-06-28 15:17 | IPNPDOC ---
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 REVIEW OF SYSTEMS: The following is a completed review of systems and has been reviewed. Review of systems otherwise unremarkable. PAIN: Patient self reports right elbow pain EYES: No recent vision changes EARS, NOSE, & THROAT: No throat pain, or dysphagia, or rhinorrhea CARDIOVASCULAR: Denies chest pain or palpitations PULMONARY: Denies shortness of breath GASTROINTESTINAL: Denies constipation/diarrhea GENITOURINARY: denies dysuria MUSCULOSKELETAL: right olecranon fracture NEUROLOGICAL:no seizures/tremors SKIN: scattered ecchymosis PSYCHIATRIC: Unremarkable All other review of systems found to be negative. PHYSICAL EXAMINATION: VITAL SIGNS: Please see below. GENERAL: Pleasant and cooperative. No acute distress. HEENT: PERRL. Extraocular movements intact. Clear conjunctiva. periorbital ecchymosis CARDIOVASCULAR: Regular rate and rhythm. No murmurs, rubs, or gallops LUNGS: Clear to auscultation bilaterally. No wheezes. No rhonchi. ABDOMEN: Soft, nontender, nondistended. Positive bowel sounds. Normal active bowel sounds NEUROLOGICAL: Alert and oriented times three. Cranial nerves II through XII grossly intact. Sensation grossly intact in all 4 extremities to light touch EXTREMITIES: 5/ 5 strength left upper extremities. 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 4/5 strength in left lower extremity. +strong right radial pulse, hand warm to touch ASSESSMENT:89-year-old F with past medical history of HTN, CKD who presents status post fall with right olecranon fracture. PLAN: 1. Rehab: PT- stretch/strengthen/maintain ROM bilat LE, improve gait endurance, fall prevention, ambulating with quad cane at supervision level OT-stretch/strengthen/maintain ROM Left UE, maintain NWB RUE, teach ADL management 2. Neuro: avoid delirogenic meds 3. Ortho: s.p fall with right olecranon fracture s/p ORIF, NWB, ortho consulted - right hip X-ray to r/o fracture given groin pain with ambulation- negative 4. CArdiac: pmh HTN and PVD, c/u Torsemide, medicine consulted to assist in overall management 5. VAsc: RLE DVT on Eliquis 6. GI ppx: protonix 7. DVT ppx: on therapeutic Eliquis 8. Pain: Tylenol, d/c'd oxycodone for periods of delirium/sundowing and c/u Cymbalta, c/u ice -will trial lidoderm to right buttock 9. Dispo:06/29/19 to home, progressing towards goals Allergies Coded Allergies: No Known Allergies (Unverified , 06/13/19) Vital Signs Vital Signs Date Time Temp Pulse Resp B/P (MAP) Pulse Ox O2 Delivery O2 Flow Rate FiO2 06/28/19 05:57 98.3 74 18 130/62 (84) 96 Current Medications Current Medications Current Medications Medications (Trade) Dose Ordered Sig/Ellyn Route PRN Reason Start Time Stop Time Status Last Admin Dose Admin Acetaminophen (Tylenol Tab) 1,000 mg TID PO 06/16/19 21:00 06/28/19 09:02 Apixaban (Eliquis) 5 mg BID PO 06/16/19 21:00 06/28/19 09:02 Bisacodyl (Dulcolax Suppository) 10 mg DAILYPRN PRN [place] CONSTIPATION 06/16/19 17:30 Docusate Sodium (Colace) 100 mg BID PO 06/16/19 21:00 06/28/19 09:02 Duloxetine HCl (Cymbalta) 30 mg DAILY PO 06/21/19 09:00 06/28/19 09:02 Fluticasone Propionate (Flonase 0.05% Nasal [place]) 1 spray BID NARES 06/21/19 09:00 06/28/19 09:02 Home Med (Med Rec Complete!) ASDIRECTED XX 06/16/19 18:15 06/16/19 18:46 DC Lidocaine (Lidoderm Patch) 1 patch DAILY TD 06/24/19 09:00 06/28/19 09:02 Magnesium Hydroxide (Milk Of Magnesia) 30 ml DAILYPRN PRN PO CONSTIPATION 06/16/19 17:30 Non-Formulary Medication ( See Comment Field Below ) REMOVE LIDODERM PATCH DAILY@21 XX 06/24/19 21:00 06/27/19 21:18 Oxycodone HCl (Roxicodone, Oxyir) 5 mg Q4HP PRN PO PAIN 06/16/19 17:30 06/21/19 11:56 DC 06/20/19 11:11 Pantoprazole Sodium (Protonix) 40 mg DAILY PO 06/17/19 09:00 06/28/19 09:02 Potassium Chloride (Micro-K Extencaps) 10 meq BID PO 06/16/19 21:00 06/28/19 09:02 Senna (Senokot) 1 tab QHS PO 06/16/19 21:00 06/27/19 21:13 Sodium Chloride ([place] Nasal [place]) 2 spray TID NA 06/21/19 16:00 06/28/19 09:02 Torsemide (Demadex) 20 mg DAILY PO 06/17/19 09:00 06/28/19 09:02 FADI JEONG MD Jun 28, 2019 15:17
[2019-06-28] MEDS ORDERED: POTA10CA32 PO (15:21)
[2019-06-28] MEDS ORDERED: PANT40TA3 PO (15:21)
[2019-06-28] MEDS ORDERED: ELIQ5TAB PO (15:21)
[2019-06-28] MEDS ORDERED: CYMB1CAP5 PO (15:21)
[2019-06-28] MEDS ORDERED: TORS10TA3 PO (15:21)
[2019-06-28 19:50] VITALS: BP 132/60
[2019-06-28] MEDS: SENNA 8.6 MG TAB (SENOKOT) PO SCH (20:32)
[2019-06-28] MEDS: **NOTE PATIENT COMMENT** MISC XX SCH (20:38)
[2019-06-29 05:29] VITALS: BP 133/61
[2019-06-29] MEDS: LIDOCAINE 5% (LIDODERM) PATCH TD SCH (08:19)
[2019-06-29] MEDS: APIXABAN 5 MG TAB (ELIQUIS) PO SCH (08:19)
[2019-06-29] MEDS: ACETAMINOPHEN 500 MG TAB PO SCH (08:20)
[2019-06-29] MEDS: DOCUSATE SODIUM 100 MG CAP PO SCH (08:20)
[2019-06-29] MEDS: DULoxetine 30 MG CAP (CYMBALTA) PO SCH (08:20)
[2019-06-29] MEDS: SODIUM CHLORIDE NASAL 0.65% SPRAY BTL (OCEAN) SCH (08:20)
[2019-06-29] MEDS: POTASSIUM CHLORIDE 10 MEQ SR TABLET PO SCH (08:20)
[2019-06-29] MEDS: FLUTICASONE PROP 0.05% NASAL SPRAY 16 GM (FLONASE) NARES SCH (08:20)
[2019-06-29] MEDS: PANTOPRAZOLE 40MG TAB (PROTONIX) PO SCH (08:20)
[2019-06-29] MEDS: TORSEMIDE 20 MG TAB PO SCH (08:21)
[2019-06-29 12:00] VITALS: BP 116/89
== END 2019-06-29 14:35 | disposition home health service (06) | DRG 561 ==
LOC: M PM&R 15:45
PROVIDERS: ADMIT Physical Medicine & Rehabilitation; ATTEND Physical Medicine & Rehabilitation
DX: S52.021D Displaced fracture of olecranon process without intraarticular extension of right ulna, subsequent encounter for closed fracture with routine healing (principal); I12.9 Hypertensive chronic kidney disease with stage 1 through stage 4 chronic kidney disease, or unspecified chronic kidney disease; N18.3 Chronic kidney disease, stage 3 (moderate); Z86.718 Personal history of other venous thrombosis and embolism; Z79.01 Long term (current) use of anticoagulants; W18.09XD Striking against other object with subsequent fall, subsequent encounter; Y93.K1 Activity, walking an animal; Y92.018 Other place in single-family (private) house as the place of occurrence of the external cause; Z98.49 Cataract extraction status, unspecified eye; Z79.899 Other long term (current) drug therapy; I83.018 Varicose veins of right lower extremity with ulcer other part of lower leg

== ENCOUNTER → 2019-09-14 | Outpatient (REF) | payer MEDICARE, OTHER ==
[~2019-09-14] MED LIST changes: +ACET-908 PO; +CYMB1CAP5 PO; +DOCU100C16 PO; +MAG-LIQ2 PO; +MILKSUS3 PO; +OXYC1TAB23 PO; +PANT40TA3 PO
== END ==
LOC: M LAB REF 13:48
PROVIDERS: ATTEND Nurse Practitioner Adult Health
DX: N39.46 Mixed incontinence (principal)

== ENCOUNTER → 2019-10-11 | Outpatient (CLI) | payer MEDICARE, OTHER ==
--- NOTE | 2019-10-11 12:04 | REP ---
Four views right fourth digit: 10/11/2019. Indication: Right fourth finger pain. Comparison: None. Findings: There is no acute fracture, subluxation or dislocation. No lytic or blastic lesions are present. Osteopenia is noted. 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 Impression: No acute osseous injuries of the fourth finger. Electronically Signed by Dakota Bajwa DO 10/11/2019 11:56 A
== END ==
LOC: M WUC 11:19
PROVIDERS: ATTEND Physician Assistant
DX: M79.644 Pain in right finger(s) (principal)

== ENCOUNTER 2019-10-23 09:30 | Inpatient (IN) | payer MEDICARE, OTHER ==
[2019-10-23] MEDS ORDERED: ADVI100T PO (10:10)
[2019-10-23 10:46] LABS: BASO % 0.2 % (0.0-1.0); EOS # 0.1 10^3/uL (0.0-0.5); EOS % 1.6 % (0.0-3.0); HEMATOCRIT 39.7 % (36.0-47.0); HEMOGLOBIN 12.4 g/dl (12.0-15.5); LYMPH # 0.5 10^3/uL (1.5-5.0); LYMPH % 10.5 % (24.0-44.0); MEAN CORPUSCULAR HEMOGLOBIN 31.1 pg (27.0-33.0); MEAN CORPUSCULAR HGB CONC 31.2 g/dl (32.0-36.5); MEAN CORPUSCULAR VOLUME 99.5 fl (80.0-96.0); MONO # 0.8 10^3/uL (0.0-0.8); MONO % 18.5 % (0.0-5.0); NEUTROPHILS # 2.9 10^3/uL (1.5-8.5); NEUTROPHILS % 68.7 % (36.0-66.0); PLATELET COUNT, AUTOMATED 193 10^3/uL (150-450); RED BLOOD COUNT 3.99 10^6/uL (4.00-5.40); WHITE BLOOD COUNT 4.3 10^3/uL (4.0-10.0)
--- NOTE | 2019-10-23 11:05 | REP ---
CT BRAIN WITHOUT IV CONTRAST: CT brain performed without IV contrast. Coronal reconstruction images are performed. Comparison 06/13/2019. Once again there is moderate atrophy. Extensive periventricular small vessel ischemic changes are again noted. I see no acute intracranial hemorrhage or extra-axial fluid collection. There are vascular calcifications in the carotid siphons. IMPRESSION: Chronic atrophy and periventricular small vessel ischemic changes. No acute intracranial hemorrhage. Electronically Signed by Fercho Eugene MD 10/23/2019 03:55 P
[2019-10-23 11:11] LABS: C REACTIVE PROTEIN QUANTITATIV 0.42 MG/DL (0.00-0.30); CALCIUM LEVEL 8.5 MG/DL (8.8-10.2); CREATININE FOR GFR 1.14 MG/DL (0.55-1.30); GLOMERULAR FILTRATION RATE 47.9 (>32); POTASSIUM SERUM 4.7 MEQ/L (3.5-5.1)
[2019-10-23] MEDS ORDERED: ACETAMINOPHEN TAB 650MG DOSE (2X325MG) PO ONE (11:30)
[2019-10-23 11:43] LABS: ERYTHROCYTE SEDIMENTATION RATE 41 mm/hr (0-30)
[2019-10-23] MEDS ORDERED: IBUP-1720 PO (13:08)
[2019-10-23] MEDS ORDERED: ELIQ5TAB PO (13:08)
[2019-10-23] MEDS ORDERED: POTA10CA32 PO (13:08)
[2019-10-23] MEDS ORDERED: KETOROLAC 30 MG/ML VIAL (J1885) IV ONE (13:30)
[2019-10-23] MEDS ORDERED: METOCLOPRAMIDE INJ 10MG/2ML VIAL (J2765) IV ONE (13:30)
[2019-10-23] MEDS ORDERED: MORPHINE 2 MG/ML 1ML VIAL (J2270) IV PRN (13:30)
[2019-10-23] MEDS: POTASSIUM CHLORIDE 10 MEQ SR TABLET PO SCH ×2 (14:00→21:24)
[2019-10-23] MEDS ORDERED: OMEPRAZOLE 20 MG CAP PO ONE (14:00)
--- NOTE | 2019-10-23 14:05 | REP ---
Bilateral lower extremity Duplex Doppler venous ultrasound: Real time compression and duplex Doppler interrogation of the bilateral lower extremity deep venous system is performed. Bilaterally, the common femoral, superficial femoral and popliteal veins are fully compressible with transducer pressure and demonstrate normal spontaneous and phasic flow, without evidence of deep venous thrombosis. Impression: No evidence of deep venous thrombosis of the bilateral lower extremity femoral popliteal venous system. Electronically Signed by Fercho Eugene MD 10/23/2019 01:56 P
--- NOTE | 2019-10-23 14:06 | REP ---
RIGHT LOWER LEG, AP AND LATERAL: AP and lateral views of the right lower leg performed. No fracture, dislocation, or intrinsic bone disease is seen. There are mild degenerative changes diffusely at the knee joint. Scattered vascular calcifications are seen in the soft tissues. The soft tissues appear edematous. Electronically Signed by Fercho Eugene MD 10/23/2019 04:06 P
--- NOTE | 2019-10-23 14:21 | HPEPDOC ---
[facility] Medical History & Physical Date of Admission Oct 23, 2019 Date of Service: Oct 23, 2019 Primary Care Physician: Nataly Luis Attending Physician: KENN CEE MD History and Physical CHIEF COMPLAINT: Headache HISTORY OF PRESENT ILLNESS: Ya Anton is an 89 YO F with history of chronic bilateral venous stasis and lymphedema who presents with 4 days severe headache. She is accompanied by her friend, who notes that the patient called her to her house to take her to the ED for her headache. She states she has been unable to sleep at night due to the severity of the headache, and has felt as though her legs are "jerking" during her sleep. She describes the headache as 10/10 in severity and it is "all over [her] head." She denies any lightheadedness, dizziness or palpitations. The headache is not localized to her temples. She has not tried to take anything for this headache as she normally does not like taking much medicine. In addition, she has had increased swelling and pain in her legs bilaterally. She does have history of DVT in her left leg but she feels her right leg is more swollen and red than normal. She does have history of weeping ulceration on her right leg. She denies any recent fevers, chills, n/v/d or illness. PAST MEDICAL HISTORY: Chronic bilateral venous stasis and lymphedema CKD 3 Hypertension LEft shoulder dislocation in 2017 H/O DVT left lower extremity in january 2019 PAST SURGICAL HISTORY: Right HIP Hemiarthroplasty Status post hysterectomy. Status post left shoulder arthroplasty. Status post left wrist surgery. Status post bilateral cataract surgery. Status Post vein stripping SOCIAL HISTORY: Former smoker, quit 4 years ago. No etOH or other drug use FAMILY HISTORY: Both parents . There is no family history of coronary artery disease or diabetes. Positive Family history of PAD ALLERGIES: Please see below. REVIEW OF SYSTEMS: CONSTITUTIONAL: 10/10 headache all over head HEENT: denies vision changes, no sinus problems, denies any trouble swallowing CARDIOVASCULAR: no palpitations RESPIRATORY: Denies any shortness of breath GENITOURINARY: No dysuria MUSCULOSKELETAL: worsened swelling in lower extremities bilateral GASTROINTESTINAL: Denies abdominal pain, no nausea/vomiting/diarrhea SKIN: No new rashes or lesions NEUROLOGICAL: No loss of sensation PSYCHIATRIC: Reports normal mood, no delusions or hallucinations ENDOCRINE: No hot/cold intolerance HEMATOLOGIC/LYMPHATIC: No easy bruising, no lumps/bumps ALLERGIC/IMMUNOLOGIC: No sinus symptoms HOME MEDICATIONS: Please see below. PHYSICAL EXAMINATION: VITAL SIGNS: Please see below. GENERAL APPEARANCE: Laying in bed, appears stated age, no acute distress, calm, cooperative HEENT: EOMI, PERRLA, neck is supple with no thyromegaly or lymphadenopathy RESPIRATORY: Lungs are clear to auscultation bilaterally with no adventitious breath sounds appreciated CARDIOVASCULAR: no JVD, RRR, no murmurs/rubs/gallops ABDOMEN: Soft, nontender to palpation in all four quadrants, no masses/organomegaly EXTREMITIES: R leg > L leg in circumference, 2+ pitting edema bilaterally, small non-bleeding ulcer on R medial calf NEUROLOGICAL: No obvious focal deficits, LUE and LLE strength 3/5, Sensation intact, CN 2-12 intact PSYCHIATRIC: normal mood/affect Skin: No rashes or ulcers. LN: No significant cervical or inguinal lymphadenopathy LABORATORY DATA: See below. IMAGING: CT HEAD W/O CONTRAST (10/23/2019): IMPRESSION: Chronic atrophy and periventricular small vessel ischemic changes. No acute intracranial hemorrhage. IMPRESSION: Chronic atrophy and periventricular small vessel ischemic changes. No acute intracranial hemorrhage. TIBIA/FIBULA XR (10/23/2019): AP and lateral views of the right lower leg performed. No fracture, dislocation, or intrinsic bone disease is seen. There are mild degenerative changes diffusely at the knee joint. Scattered vascular calcifications are seen in the soft tissues. The soft tissues appear edematous. DOPPLER US BILAT LOWER EXT (10/23/2019): Real time compression and duplex Doppler interrogation of the bilateral lower extremity deep venous system is performed. Bilaterally, the common femoral, superficial femoral and popliteal veins are fully compressible with transducer pressure and demonstrate normal spontaneous and phasic flow, without evidence of deep venous thrombosis. Impression: No evidence of deep venous thrombosis of the bilateral lower extremity femoral popliteal venous system. MICROBIOLOGY: Please see below. ASSESSMENT: This is an 89YO F with history of chronic bilateral venous stasis and lymphedema who presented to the ED with severe headache found to have worsened lower extremity swelling concerning for DVT. PLAN: 1. Headache: patient reports 10/10 in severity, has been present for 4 days with no relief. She has no history of migraines. Not hypoxic/anemic. No history of trauma to the head. -s/p Tylenol in ED -CT head negative for bleed -IV Morphine 1mg Q2H as needed for pain -Toradol 15mg IV for pain -Reglan 10mg IV for nausea -No temporal pain with palpation. Headache is diffuse. Less concerning for Temporal arteritis. ESR is somewhat elevated, but appropriate for her age -If headache does not improve with pain management will consider neurology consult 2. Lower extremity swelling concerning for DVT: -Patient has history of chronic venous insufficiency and DVT. She is on Eliquis at home -Ordered lower extremity doppler bilateral, negative for DVT -Patient would likely benefit from wound care outpatient for wrapping to encourage venous flow -R tibia/fibula XR ordered by Dr. Cee as patient had history of recent R ORIF. XR normal. No evidence of fracture -Will continue Eliquis for now -Continue Torsemide 10mg TID and potassium supplementation -CRP mildly elevated at 0.42, afebrile, WBC normal. Less likely cellulitis. Blood cultures ordered DVT Ppx: on Eliquis DISPO: Pending further workup for DVT, PT/OT Vital Signs Vital Signs Date Time Temp Pulse Resp B/P (MAP) Pulse Ox O2 Delivery O2 Flow Rate FiO2 10/23/19 13:15 98.7 78 18 114/55 (74) 97 Room Air Laboratory Data Labs 24H Laboratory Tests 2 10/23/19 10:31: Immature Granulocyte % (Auto) 0.5, Neutrophils (%) (Auto) 68.7H, Lymphocytes (%) (Auto) 10.5L, Monocytes (%) (Auto) 18.5H, Eosinophils (%) (Auto) 1.6, Basophils (%) (Auto) 0.2, Neutrophils # (Auto) 2.9, Lymphocytes # (Auto) 0.5L, Monocytes # (Auto) 0.8, Eosinophils # (Auto) 0.1, Basophils # (Auto) 0.0, Nucleated Red Blood Cells % (auto) 0.0, Erythrocyte Sedimentation Rate 41H, Anion Gap 7L, Glomerular Filtration Rate 47.9, Calcium Level 8.5L, C-Reactive Protein, Quantitative 0.42H CBC/BMP Laboratory Tests 10/23/19 10:31 Microbiology Microbiology 10/23/19 Blood Culture, Received Pending 10/23/19 Blood Culture, Received Pending Home Medications Scheduled Apixaban (Eliquis) 5 Mg Tablet, 5 MG PO BID Potassium Chloride (Potassium Chloride) 10 Meq Capsule.er, 10 MEQ PO BID Torsemide (Torsemide) 10 Mg Tablet, 10 MG PO TID PCP SWITCHED PT BACK TO TID Scheduled PRN Ibuprofen (Ibuprofen) 200 Mg Tablet, 200 MG PO Q6H PRN for PAIN Allergies Coded Allergies: No Known Allergies (Unverified , 10/23/19) A-FIB/CHADSVASC A-FIB History Current/History of A-Fib/PAF?: No GME ATTESTATION GME ATTESTATION My faculty preceptor for this patient encounter was physically present during the encounter and was fully available. All aspects of the patient interview, examination, medical decision making process, and medical care plan development were reviewed and approved by the faculty preceptor. The faculty preceptor is aware and concurs with the plan as stated in the body of this note and will attest to such by his/her cosignature. ATTENDING NOTE ATTENDING PHYSICIAN ADDENDUM: I have independently interviewed and examined this patient at the bedside , and agree with the physical findings and management plan as documented above by my resident physician. All of the patient's questions and concerns have been addressed. CHUNG OSBORNE MD Oct 23, 2019 14:21 KENN CEE MD Oct 23, 2019 16:00
[2019-10-23] MEDS: APIXABAN 5 MG TAB (ELIQUIS) PO SCH ×2 (14:41→21:24)
[2019-10-23] MEDS: TORSEMIDE 10 MG TABLET PO SCH ×2 (15:22→21:24)
[2019-10-23 16:00] VITALS: BP 136/62
[2019-10-23 21:14] VITALS: BP 145/89
[2019-10-23] MEDS: IBUPROFEN 200 MG TAB PO PRN (23:59)
[2019-10-24 06:27] LABS: HEMATOCRIT 36.4 % (36.0-47.0); HEMOGLOBIN 11.3 g/dl (12.0-15.5); MEAN CORPUSCULAR HEMOGLOBIN 30.8 pg (27.0-33.0); MEAN CORPUSCULAR VOLUME 99.2 fl (80.0-96.0); PLATELET COUNT, AUTOMATED 168 10^3/uL (150-450); RED BLOOD COUNT 3.67 10^6/uL (4.00-5.40); WHITE BLOOD COUNT 3.1 10^3/uL (4.0-10.0)
[2019-10-24 06:49] VITALS: BP 132/65
[2019-10-24 06:55] LABS: CALCIUM LEVEL 8.2 MG/DL (8.8-10.2); CREATININE FOR GFR 1.23 MG/DL (0.55-1.30); GLOMERULAR FILTRATION RATE 43.9 (>32); POTASSIUM SERUM 3.7 MEQ/L (3.5-5.1)
[2019-10-24] MEDS: TORSEMIDE 10 MG TABLET PO SCH (08:55)
[2019-10-24] MEDS: APIXABAN 5 MG TAB (ELIQUIS) PO SCH ×2 (08:56→20:25)
[2019-10-24] MEDS: POTASSIUM CHLORIDE 10 MEQ SR TABLET PO SCH ×2 (08:56→20:25)
[2019-10-24] MEDS: OMEPRAZOLE 20 MG CAP PO SCH (08:56)
--- NOTE | 2019-10-24 11:25 | IPNPDOC ---
Date Seen The patient was seen on 10/24/19. Progress Note Addendum: pt's RN called regarding acute onset confusion, and gait imbalance after being seen by PT and cleared for home. pt c/o feeling dizzy, lightheadedness, confused, unable to walk to bathroom without assistance, plan: postpone discharge check orthostatics, ekg, card anderson, ammonia, ua, reflex urine cx. b12,folate, vit d, tsh.ctangio head and neck r/o cerebellar cva. per family and hcp at the bedside, pt has had recurrent falls at home, falling forward from standing, not remembering how to use the oven to make blueberry cake. Pt lives alone, and unsafe for discharge according to family, with request for placement. pt is currently confused and disoriented unable to make medical decisions. VS, I&O, 24H, Fishbone Vital Signs/I&O Vital Signs Date Time Temp Pulse Resp B/P (MAP) Pulse Ox O2 Delivery O2 Flow Rate FiO2 10/24/19 06:49 99.3 83 18 132/65 (87) 96 Room Air I&O- Last 24 Hours up to 6 AM 10/24/19 06:00 Intake Total 420 ml Output Total 1450 ml Balance -1030 ml Laboratory Data 24H LABS Laboratory Tests 2 10/24/19 05:38: Nucleated Red Blood Cells % (auto) 0.0, Anion Gap 8, Glomerular Filtration Rate 43.9, Calcium Level 8.2L CBC/BMP Laboratory Tests 10/24/19 05:38 Microbiology Microbiology 10/23/19 Blood Culture - Preliminary, Resulted No growth after 24 hours . All specim... 10/23/19 Blood Culture - Preliminary, Resulted No growth after 24 hours . All specim... KENN CEE MD Oct 24, 2019 11:25
[2019-10-24] MEDS ORDERED: ISOVUE-370 76% 100ML VIAL (Q9967) As Ordered ONE (11:41)
[2019-10-24 12:17] LABS: ALT/SGPT 16 U/L (12-78); BILIRUBIN,TOTAL 0.4 MG/DL (0.2-1.0); BLOOD UREA NITROGEN 26 MG/DL (7-18); C REACTIVE PROTEIN QUANTITATIV 0.66 MG/DL (0.00-0.30); CALCIUM LEVEL 8.2 MG/DL (8.8-10.2); CARBON DIOXIDE LEVEL 27 MEQ/L (21-32); CHLORIDE LEVEL 102 MEQ/L (98-107); CK-MB VALUE MASS 1.1 NG/ML (<3.6); CPK CREATINE PHOSPHOKINASE 83 U/L (26-192); CREATININE FOR GFR 1.32 MG/DL (0.55-1.30); GLOMERULAR FILTRATION RATE 40.4 (>32); GLUCOSE, FASTING 109 MG/DL (70-100); MB/CK RELATIVE INDEX 1.33 (< OR =4); POTASSIUM SERUM 3.9 MEQ/L (3.5-5.1); SODIUM LEVEL 138 MEQ/L (136-145); TOTAL PROTEIN 6.6 GM/DL (6.4-8.2); TROPONIN I < 0.02 NG/ML (< 0.10)
--- NOTE | 2019-10-24 13:57 | REP ---
CT ANGIOGRAM OF THE NECK: CT angiogram neck performed following the intravenous administration of 100 mL of Isovue 370. Sagittal and coronal reconstruction images are performed. The visualized thoracic aorta demonstrates mild atherosclerotic calcification. There is mild atherosclerotic calcification of the origin of the brachiocephalic artery and left subclavian artery. There is mild calcification of the left carotid bulb. There is no left internal carotid artery stenosis or occlusion. There is only mild narrowing at the bulb. There is mild calcification and narrowing of the right carotid bulb as well. Right internal carotid artery demonstrates mild diffuse narrowing, but no focal stenosis and no evidence of occlusion. Right vertebral artery is dominant. Both vertebral arteries are patent with no focal stenosis. There is mild narrowing at the origin over the left subclavian artery with no stenosis of the more distal visualized portion. There is also mild narrowing of the origin of the right subclavian artery with no stenosis of the visualized portion. The distal aspect is not well seen due to streak artifact from contrast in the adjacent right subclavian vein. There are degenerative changes of the spine. IMPRESSION: Mild scattered atherosclerotic disease. Mild diffuse narrowing of the right internal carotid artery. No focal stenosis or occlusion of either internal carotid artery. Electronically Signed by Fercho Eugene MD 10/25/2019 05:50 P
[2019-10-24 14:00] VITALS: BP 110/64
[2019-10-24] MEDS: NS 1,000 ML IV SCH (14:00)
--- NOTE | 2019-10-24 14:06 | REP ---
CT ANGIOGRAM BRAIN: Following the intravenous administration of 100 mL of Isovue 370, CT angiogram of the brain is performed, with sagittal and coronal reconstruction images also performed. Right vertebral artery is dominant. Both vertebral arteries are patent with no stenosis. There is no basilar artery stenosis. There is mild atherosclerotic calcification of the carotid siphons bilaterally. There is mild diffuse narrowing of the intracranial portion of the internal carotid artery with no focal stenosis. Bilateral anterior cerebral, middle cerebral, and posterior cerebral arteries are patent and symmetrical in appearance. There is no A1 segment of right anterior communicating artery. Both anterior cerebral arteries are supplied by the left A1 segment and A 2 segment of anterior communicating artery. A left posterior communicating artery is seen. I do not see a right posterior communicating artery. I see no aneurysm or AVM. IMPRESSION: Right internal carotid artery is mildly diffusely narrowed and smaller in caliber than the left. There is mild plaquing and narrowing in the carotid siphons bilaterally. Bilateral patent anterior, middle, and posterior cerebral arteries. There is no A1 segment of anterior communicating artery. I do not see a right posterior communicating artery. Electronically Signed by Fercho Eugene MD 10/25/2019 05:51 P
[2019-10-24] MEDS ORDERED: NALOXONE INJ 0.4 MG/1 ML VIAL (J2310) IV PRN (16:15)
[2019-10-24 16:35] LABS: ABG BASE EXCESS 2.3 (-2.0-2.0); ABG HCO3 25.6 MEQ/L (22.0-26.0); ABG O2 SATURATION 93.8 % (95.0-99.0); ABG PARTIAL PRESSURE CO2 35.3 mmHg (35.0-45.0); ABG PARTIAL PRESSURE O2 65.7 mmHg (75.0-100.0); ABG STANDARD HCO3 26.5 MEQ/L (22.0-26.0); ABG TOTAL CO2 26.7 MEQ/L (23.0-31.0); ABG pH (ARTERIAL) 7.478 UNITS (7.350-7.450)
[2019-10-24 17:00] VITALS: BP 167/72
[2019-10-24] MEDS: ACETAMINOPHEN TAB 650MG DOSE (2X325MG) PO PRN (17:48)
--- NOTE | 2019-10-24 19:54 | ECGEPIP ---
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
[2019-10-24 22:00] VITALS: BP 141/74
[2019-10-24 23:59] VITALS: BP 128/58
[2019-10-25 04:00] VITALS: BP 136/71
[2019-10-25] MEDS: ACETAMINOPHEN TAB 650MG DOSE (2X325MG) PO PRN ×2 (05:09→18:45)
[2019-10-25] MEDS: NS 1,000 ML IV SCH (05:10)
[2019-10-25 05:41] LABS: HEMATOCRIT 40.3 % (36.0-47.0); HEMOGLOBIN 12.8 g/dl (12.0-15.5); MEAN CORPUSCULAR HEMOGLOBIN 31.4 pg (27.0-33.0); MEAN CORPUSCULAR HGB CONC 31.8 g/dl (32.0-36.5); MEAN CORPUSCULAR VOLUME 98.8 fl (80.0-96.0); PLATELET COUNT, AUTOMATED 168 10^3/uL (150-450); RED BLOOD COUNT 4.08 10^6/uL (4.00-5.40); WHITE BLOOD COUNT 4.8 10^3/uL (4.0-10.0)
[2019-10-25 06:01] LABS: CALCIUM LEVEL 8.1 MG/DL (8.8-10.2); CREATININE FOR GFR 1.06 MG/DL (0.55-1.30); GLOMERULAR FILTRATION RATE 52.1 (>32)
[2019-10-25] MEDS ORDERED: NS 1,000 ML IV SCH (07:30)
[2019-10-25 08:00] VITALS: BP 105/51
[2019-10-25] MEDS: OMEPRAZOLE 20 MG CAP PO SCH (08:05)
[2019-10-25] MEDS: APIXABAN 5 MG TAB (ELIQUIS) PO SCH ×2 (08:05→20:44)
[2019-10-25] MEDS: POTASSIUM CHLORIDE 10 MEQ SR TABLET PO SCH ×2 (08:05→20:46)
[2019-10-25 12:00] VITALS: BP 153/81
[2019-10-25] MEDS ORDERED: SLF 3 ML SYR IV PRN (12:00)
[2019-10-25 12:52] LABS: TOTAL 25(OH) VITAMIN D 22.6 NG/ML (30.0-100.0); VITAMIN B12 LEVEL 289 PG/ML (247-911)
[2019-10-25 12:53] LABS: FOLATE 21.4 NG/ML (>5.4)
[2019-10-25] MEDS ORDERED: SLF 3 ML SYR IV SCH (14:00)
[2019-10-25 16:00] VITALS: BP 170/78
[2019-10-25] MEDS: amLODIPine 5 MG TAB PO SCH (17:14)
[2019-10-25 17:40] VITALS: BP 168/78
--- NOTE | 2019-10-25 19:35 | DSES ---
DATE OF ADMISSION: 10/23/2019 DATE OF DISCHARGE: DISCHARGE DIAGNOSES: 1. Headache. 2. Right lower extremity edema, chronic deep vein thrombosis (DVT) has been ruled out. 3. Chronic kidney disease stage III. 4. Lymphedema in bilateral lower extremities. 5. Hypertension. 6. 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 DISCHARGE MEDICATIONS: - Eliquis 5 mg twice a day - ibuprofen 200 mg every 6 hours as needed - potassium chloride 10 mEq twice a day - torsemide 10 mg three times a day DISCHARGE INSTRUCTIONS: Followup with primary care provider within 5 days of discharge. The patient is to be evaluated for chronic venous insufficiency as an outpatient, elevate right lower extremity on two pillows at all times when sitting or supine. HOSPITAL COURSE: This is an 83-year-old female who presented to the emergency room with complaints of headache, unable to sleep, described as frontal headache without any radiation, 10 out of 10 in severity. No changes in vision, nausea or vomiting. No aura. Denies history of migraines. CT of the head was unremarkable without acute abnormality. The patient denies any lightheadedness, dizziness or palpitations. The patient was given intravenous fluid and Toradol with resolution of her symptoms. The patient has no neurological deficits. Emergency room evaluated the patient's bilateral lower extremities and noted right lower extremity edema greater than the left and had called the hospitalist to admit for right lower extremity cellulitis. On admission, the patient had no erythema, tenderness or increased warmth of the right lower extremity. The patient states that she has had the edema for several years, which has not changed. Dopplers of the right lower extremity showed no deep vein thrombosis (DVT). She is on chronic Eliquis for left lower extremity DVT in January 2019. X-ray showed no fracture or dislocation. The patient was admitted for treatment of headache. She was felt to have chronic lymphedema of the right lower extremity with no DVT or acute cellulitic changes. No antibiotics were given. She was afebrile with normal white count. Heart rate was 41. C-reactive protein was 0.42. The patient has no temporal tenderness and headache had resolved. PHYSICAL EXAMINATION: On discharge: Temperature 99.3, pulse 83, respiratory rate 18, blood pressure 132/65, 96% on room air. GENERAL: Awake, alert, oriented to person, place and time. Answering questions appropriately. No temporal tenderness. No jugular venous distention (JVD) or thyromegaly. No cervical lymphadenopathy. Neck is supple with no thyromegaly. LUNGS: Clear to auscultation. No wheezing, rales or rhonchi. Air entry is equal bilaterally. HEART: S1, S2. Sinus rhythm. No murmurs, rubs or gallops. ABDOMEN: Soft, nontender, nondistended. Positive bowel sounds. EXTREMITIES: Right lower extremity greater than left lower extremity 2+ pitting edema bilaterally. Right middle calf nonbleeding ulcer. Chronic venous stasis changes. No erythema. No warmth or tenderness. Lower extremity Doppler bilaterally shows no deep vein thrombosis (DVT) in bilateral lower extremities. Tib-fib x-ray shows degenerative joint disease at the knee joint, no fracture or dislocation, vascular calcifications and soft tissue superiorly edematous. LABORATORY DATA: White count 3.1, hemoglobin 11, hematocrit 36, platelet count 168. Sodium 143, potassium 3.7, chloride 106, bicarbonate 29, BUN 23, creatinine 1.23, glucose of 84. Two sets of blood cultures were negative. Venous Dopplers of bilateral lower extremities negative. Tib-fib x-ray with no acute fracture or dislocation. CT of the head showed no acute intracranial abnormality. Chronic atrophy and periventricular small vessel ischemic changes. No intracranial hemorrhage. Time spent on discharge: 30 minutes.
[2019-10-25 20:00] VITALS: BP 121/59
--- NOTE | 2019-10-25 21:04 | IPNPDOC ---
Date Seen The patient was seen on 10/25/19. Progress Note SUBJECTIVE: Anisha was seen and examined this morning while sitting upright in bed. She denies any adverse events overnight. She denies feeling confused, experiencing dizziness, or having gait instability. She also denies headache. When asked what she would do if if she were to fall, or experience an acute medical issue while home alone, she says she will activate her life alert bracelet. She is adamantly desirous of going home as soon as possible. Patient's healthcare proxy and volunteer farmworker diversified crops pulled the hospitalist team decide to express her significant concerns regarding patient's safety going home. [employer] reports that ever since patient underwent surgery on 06/13/2019, her mental status has steadily declined and she has had more consistent falls at home. On recent discharges, patient has had home health assigned and subsequently fired them OBJECTIVE PHYSICAL EXAMINATION: VITAL SIGNS: Please see below. GENERAL: Elderly female who appears stated age. Does not appear to be in acute distress of any kind. HEENT: Atraumatic, normocephalic. Wearing prescription eyeglasses. Anicteric sclera. Hyperemia of left conjunctiva. Mild bilateral periorbital edema. PERRLA, EOMI. upper and lower dentures in place. No pharyngeal erythema or exudate. Trachea is midline. CARDIOVASCULAR: Normal S1, S2, sinus tachycardia. No murmurs, rubs or clicks appreciated. RESPIRATORY: Clear to auscultation bilaterally, anteriorly and posteriorly. No wheezing, crackles or rhonchi appreciated. Symmetric chest expansion. Breathing on room air. ABDOMINAL: Soft, nontender, nondistended. Normoactive bowel sounds. No guarding or rigidity. EXTREMITIES: 2+ bilateral pitting edema with right lower extremity greater than the left. There is a nonbleeding ulcer of the right lower extremity calf. There are chronic venous stasis changes. There is no warmth, erythema, or tenderness of lower ordonez is bilaterally. NEUROLOGICAL: Awake, alert and oriented to person and place, but struggles with time. Responds appropriately to questions and commands. Other than auditory (hard for him). Cranial nerves III through XII are grossly intact. Cerebellar testing is intact. PSYCHOLOGICAL: Appears moderately anxious to go home. Affect seems appropriate. LABORATORY DATA, IMAGING STUDIES, MICROBIOLOGY: Please see below. ASSESSMENT AND PLAN: This is an 89-year-old female with history of chronic bilateral venous stasis and lymphedema who presented to the emergency department on 10/23 with chief complaint of severe headache and was found to have worsened lower extremity swelling concerning for DVT. Right lower extremity edema appeared greater than left, and there was a concern from the ED for possible right lower extremity cellulitis. Doppler ultrasound of the right lower extremity showed no evidence of DVT. Patient is chronically on Eliquis, status post left lower extremity DVT in January 2019. X-ray of right lower extremity was negative. After evaluation, patient most likely has chronic venous insufficiency/lymphedema of bilateral lower extremities with right and left with no DVT or cellulitic type changes. Patient remained afebrile with unremarkable white count. The greatest issue is patient's safety upon discharge. She lives alone and has had history of recurrent falls and decline in mental status per her health proxy/volunteer farmworker diversified crops ever since a surgery in early June 2019. Patient has marginal insight into how she'll react if she falls and/or has an acute medical issue.. She also has poor judgment overall and assessing her own personal safety to go home. Patient family services has talked with both the patient, patient's family, and healthcare proxy and we are currently collaborating as to the best plan for discharge. At this stage, most likely plan will involve home health care. Headache upon presentation was rated 10 out of [address] of the head was unremarkable without acute abnormalities. Patient denied any lightheadedness, palpitations or dizziness. Patient had a resolution of her symptoms after IV fluid and Toradol administration. #Chronic venous stasis insufficiency and lymphedema -No evidence of DVT on ultrasound with no erythema, warmth or calf tenderness bilaterally. -History of DVT left lower extremity January 2019, continue with home Eliquis -Home torsemide discontinued yesterday #Elevated creatinine -Baseline appears to be around 1 -Creatinine improved today from yesterday -IV fluids were DC'd with patient's improvement in kidney functioning. #Chronic kidney disease, stage III -GFR improved today from yesterday -With improvement in creatinine and GFR, IV fluids were discontinued. -Home torsemide discontinued yesterday #Psychosocial related issues and patient safety -Patient has marginal insight into how she would handle an acute medical emergency or fall while home alone. She currently possesses poor judgment as she feels she is robustly capable of returning home without any issues. Patient's healthcare proxy and volunteer farmworker diversified crops is considerably concerned regarding patient's safety in her overall mental status decline since June 2019. She is having recurrent falls. -Spoke at length with patient's healthcare proxy and volunteer farmworker diversified crops regarding her concerns. Also spoke with patient family services regarding patient's safety to be discharged. -At this time, patient has no significant medical reason warranting further hospital treatment as the main sticking point is placement on discharge. The feeling at this time is for patient to be discharged home tomorrow with assigned home health care. The patient's healthcare proxy and patient family services will meet with patient tomorrow morning along with hospitalist team. #Hypertension -c/w scheduled amlodipine #DVT prophylaxis: Continue with home Eliquis DISPOSITION: Pending collaborative decision with family, patient and the FS t omorrow as to the best plan to ensure home safety. VS, I&O, 24H, Fishbone Vital Signs/I&O Vital Signs Date Time Temp Pulse Resp B/P (MAP) Pulse Ox O2 Delivery O2 Flow Rate FiO2 10/25/19 17:40 100.4 168/78 (108) 10/25/19 17:14 109 10/25/19 16:00 18 96 Room Air I&O- Last 24 Hours up to 6 AM 10/25/19 06:00 Intake Total 1500 ml Output Total 2040 ml Balance -540 ml Laboratory Data 24H LABS Laboratory Tests 2 10/25/19 05:21: Nucleated Red Blood Cells % (auto) 0.0, Anion Gap 9, Glomerular Filtration Rate 52.1, Calcium Level 8.1L CBC/BMP Laboratory Tests 10/25/19 05:21 Microbiology Microbiology 10/23/19 Blood Culture - Preliminary, Resulted No Growth after 48 hours. All Specime... 10/23/19 Blood Culture - Preliminary, Resulted No Growth after 48 hours. All Specime... IVAN SIDDIQUI D.O. Oct 25, 2019 21:04
[2019-10-26] VITALS (7 sets, daily range): BP systolic 121–162; BP diastolic 59–96
[2019-10-26 06:48] LABS: HEMATOCRIT 41.1 % (36.0-47.0); HEMOGLOBIN 13.2 g/dl (12.0-15.5); MEAN CORPUSCULAR HEMOGLOBIN 31.1 pg (27.0-33.0); MEAN CORPUSCULAR HGB CONC 32.1 g/dl (32.0-36.5); MEAN CORPUSCULAR VOLUME 96.9 fl (80.0-96.0); PLATELET COUNT, AUTOMATED 159 10^3/uL (150-450); RED BLOOD COUNT 4.24 10^6/uL (4.00-5.40); WHITE BLOOD COUNT 4.9 10^3/uL (4.0-10.0)
[2019-10-26 07:22] LABS: BLOOD UREA NITROGEN 12 MG/DL (7-18); CALCIUM LEVEL 8.3 MG/DL (8.8-10.2); CARBON DIOXIDE LEVEL 25 MEQ/L (21-32); CHLORIDE LEVEL 102 MEQ/L (98-107); CREATININE FOR GFR 0.86 MG/DL (0.55-1.30); GLOMERULAR FILTRATION RATE > 60.0 (>32); GLUCOSE, FASTING 103 MG/DL (70-100); POTASSIUM SERUM 3.8 MEQ/L (3.5-5.1); SODIUM LEVEL 134 MEQ/L (136-145)
--- NOTE | 2019-10-26 08:27 | REP ---
Portable chest x-ray: Single view. History: Fever. Comparison study: November 07, 2015. Findings: Monitoring electrodes overlie the chest. Mild cardiomegaly is again observed unchanged. No infiltrate is seen. Pleural angles are sharp. Pulmonary vasculature is not increased. Impression: Cardiomegaly. Otherwise no acute disease. Electronically Signed by Yury Elise MD 10/26/2019 08:18 A
[2019-10-26] MEDS: POTASSIUM CHLORIDE 10 MEQ SR TABLET PO SCH ×2 (08:52→20:28)
[2019-10-26] MEDS: OMEPRAZOLE 20 MG CAP PO SCH (08:52)
[2019-10-26] MEDS: APIXABAN 5 MG TAB (ELIQUIS) PO SCH ×2 (08:52→20:28)
[2019-10-26] MEDS: amLODIPine 5 MG TAB PO SCH (08:53)
[2019-10-26] MEDS: ACETAMINOPHEN TAB 650MG DOSE (2X325MG) PO PRN (11:49)
[2019-10-26] MEDS ORDERED: NS 500 ML IV ONE (12:00)
--- NOTE | 2019-10-26 13:35 | REP ---
Chest x-ray: Two views. History: Rule out aspiration. New onset lethargy. Question pneumonia. Comparison chest x-ray October 25 2019 and November 01, 2015. Findings: Cardiomegaly is observed unchanged. Lungs are well inflated and clear. Pleural angles are sharp. The lungs are hyperinflated overall as before. There are mild degenerative changes in the thoracic spine. No acute bony abnormality is seen. Monitoring electrodes are noted. Impression: Cardiomegaly. Otherwise no acute disease. Electronically Signed by Yury Elise MD 10/26/2019 01:26 P
[2019-10-26 13:49] LABS: ABG BASE EXCESS 0.1 (-2.0-2.0); ABG HCO3 23.4 MEQ/L (22.0-26.0); ABG O2 SATURATION 95.4 % (95.0-99.0); ABG PARTIAL PRESSURE CO2 33.7 mmHg (35.0-45.0); ABG PARTIAL PRESSURE O2 71.8 mmHg (75.0-100.0); ABG STANDARD HCO3 24.6 MEQ/L (22.0-26.0); ABG TOTAL CO2 24.4 MEQ/L (23.0-31.0); ABG pH (ARTERIAL) 7.459 UNITS (7.350-7.450)
--- NOTE | 2019-10-26 19:32 | IPNPDOC ---
Date Seen The patient was seen on 10/26/19. Progress Note SUBJECTIVE: Ya was seen and examined this morning while lying in bed. She reports no adverse events overnight. Nursing did report that patient had temperature of 100.4 early in the night last evening, which subsequently resolved after one time 650 mg dose of Tylenol. She remains focused on being discharged and returning home. When asked specifically regarding a plan she would execute if she were to experience a fall or acute medical emergency alone at home, she replied "I always have neighbors that check on me." She reports being able to ambulate to and from the bathroom with the assistance of a cane and does not feel unstable on her feet. She denies any specific pain, fever, chills, chest pressure, palpitations, shortness of breath, abdominal pain, feeling nauseated, vomiting, dysuria, or hematuria at this time. OBJECTIVE PHYSICAL EXAMINATION: VITAL SIGNS: Please see below. GENERAL: Elderly female who appears stated age. Does not appear to be in acute distress of any kind. Sleeping in bed just prior to exam. HEENT: Atraumatic, normocephalic. Anicteric sclera. Hyperemia of left conjunctiva. Mild bilateral periorbital edema. PERRLA, EOMI. upper and lower dentures in place. No pharyngeal erythema or exudate. Trachea is midline. CARDIOVASCULAR: Normal S1, S2; tachycardic rate. No murmurs, rubs or clicks appreciated. RESPIRATORY: Clear to auscultation bilaterally, anteriorly and posteriorly. Mildly diminished tidal volume. No wheezing, crackles or rhonchi appreciated. Symmetric chest expansion. Breathing on room air. ABDOMINAL: Soft, nontender, nondistended. Normoactive bowel sounds. No guarding or rigidity. EXTREMITIES: 2+ bilateral pitting edema with right lower extremity greater than the left. There is a nonbleeding ulcer of the right lower extremity calf. There are chronic venous stasis changes.. There is mild erythema bilateral lower extremities with right lower extremity calf tenderness. Right lower extremity is slightly warm to the touch as compared to the left lower extremity. NEUROLOGICAL: Awake, alert and oriented to person and place, but struggles with time. Responds appropriately to questions and commands.. No focal neurologic deficits appreciated. PSYCHOLOGICAL: Mood and affect. Appropriate LABORATORY DATA, IMAGING STUDIES, MICROBIOLOGY: Please see below. ASSESSMENT AND PLAN: This is an 89-year-old female with history of chronic bilateral venous stasis and lymphedema who presented to the emergency department on 10/23 with chief complaint of severe headache and was found to have worsened lower extremity swelling concerning for DVT. Right lower extremity edema appeared greater than left, and there was a concern from the ED for possible right lower extremity cellulitis. Doppler ultrasound of the right lower extremity showed no evidence of DVT. Patient is chronically on Eliquis, status post left lower extremity DVT in January 2019. X-ray of right lower extremity was negative. Headache upon presentation was rated 10 out of [address] of the head was unremarkable without acute abnormalities. Patient denied any lightheadedness, palpitations or dizziness. Patient had a resolution of her symptoms after IV fluid and Toradol administration. After evaluation, patient most likely has chronic venous insuffi ciency/lymphedema of bilateral lower extremities with right and left with no DVT or cellulitic type changes. Patient remained afebrile with unremarkable white count. The greatest issue is patient's safety upon discharge. She lives alone and has had history of recurrent falls and decline in mental status per her health proxy/volunteer wrapping machine helper ever since a surgery in early June 2019. Patient has marginal to poor insight into how she'll react if she falls and/or has an acute medical issue. She also has poor judgment overall in assessing her own personal safety to go home. Patient family services has talked with both the patient, patient's family, and healthcare proxy and we are currently collaborating as to the best plan for discharge. At this stage, most likely plan will involve home health care. Patient was slated to be discharged on 10/26 with plan to go home with home health, then developed acute onset lethargy with temperature of 100.4 and urinary retention. Plan for discharge was stopped and patient remained in PCU. Patient was made NPO due to her lethargy and risk of aspiration. Blood cultures, ABG, chest x-ray. Lactic acid and bladder scan ordered. Patient also received a liter bolus. #Acute onset lethargy -accompanying borderline fever and urinary retention -made NPO until alertness mental status improves due to aspiration risk -chest x-ray, blood cultures, bladder scan, sputum cultures, lactic acid level ordered -Patient received 1 liter bolus normal saline #Chronic venous stasis insufficiency and lymphedema -No evidence of DVT and no evidence of acute infection with unremarkable white count -History of DVT left lower extremity January 2019, continue with home Eliquis -Home torsemide discontinued yesterday #Elevated creatinine -Baseline appears to be around 1 -Creatinine improved to baseline the last 2 days -IV fluids were DC'd with patient's improvement in kidney functioning. #Chronic kidney disease, stage III -GFR improved to greater than 60% today -With improvement in creatinine and GFR -Home torsemide discontinued #Psychosocial related issues and patient safety -Patient has marginal insight into how she would handle an acute medical emergency or fall while home alone. She currently possesses poor judgment as she feels she is robustly capable of returning home without any issues. Patient's healthcare proxy and volunteer wrapping machine helper is considerably concerned regarding patient's safety in her overall mental status decline since June 2019. She is having recurrent falls. -Spoke at length with patient's healthcare proxy and volunteer wrapping machine helper regarding her concerns. Also spoke with patient family services regarding patient's safety to be discharged. -At this time, patient has no significant medical reason warranting further hospital treatment as the main sticking point is placement on discharge. The feeling at this time is for patient to be discharged home tomorrow with assigned home health care, pending improvement in energy and barring acute infectious process #Hypertension -c/w scheduled amlodipine #DVT prophylaxis: Continue with home Eliquis DISPOSITION: Discharge tomorrow pending improvement in mental status with likely placement at home with home health care. VS, I&O, 24H, [facility] Vital Signs/I&O Vital Signs Date Time Temp Pulse Resp B/P (MAP) Pulse Ox O2 Delivery O2 Flow Rate FiO2 10/26/19 18:30 99.2 10/26/19 16:00 90 16 121/59 (79) 96 Room Air I&O- Last 24 Hours up to 6 AM 10/26/19 06:00 Intake Total 1140 ml Output Total 1300 ml Balance -160 ml Laboratory Data 24H LABS Laboratory Tests 2 10/25/19 22:22: Urine Color YELLOW, Urine Appearance CLEAR, Urine pH 7.0, Urine Specific [place]da 1.017, Urine Protein NEGATIVE, Urine Glucose (UA) NEGATIVE, Urine Ketones NEGATIVE, Urine Blood NEGATIVE, Urine Nitrite NEGATIVE, Urine Bilirubin NEG ATIVE, Urine Urobilinogen 0.2, Urine Leukocyte Esterase NEGATIVE, Urine WBC (Auto) 1, Urine RBC (Auto) 5H, Urine Hyaline Casts (Auto) 0, Urine Bacteria (Auto) NEGATIVE, Urine Squamous Epithelial Cells 0, Urine Sperm (Auto) 10/26/19 06:26: Nucleated Red Blood Cells % (auto) 0.0, Anion Gap 7L, Glomerular Filtration Rate > 60.0, Calcium Level 8.3L 10/26/19 12:27: Lactic Acid Level 1.0 10/26/19 13:35: Blood Gas Bicarbonate Standard 24.6, Arterial Blood pH 7.459H, Arterial Blood Partial Pressure CO2 33.7L, Arterial Blood Partial Pressure O2 71.8L, Arterial Blood Total CO2 24.4, Arterial Blood HCO3 23.4, Arterial Blood Base Excess 0.1, Arterial Blood Oxygen Saturation 95.4 CBC/BMP Laboratory Tests 10/26/19 06:26 Microbiology Microbiology 10/26/19 Gram Stain - Final, Resulted 10/26/19 Sputum Culture, Resulted Pending 10/26/19 Blood Culture, Received Pending 10/26/19 Blood Culture, Received Pending 10/23/19 Blood Culture - Preliminary, Resulted No Growth after 72 hours. All specime... 10/23/19 Blood Culture - Preliminary, Resulted No Growth after 72 hours. All specime... GME ATTESTATION GME ATTESTATION My faculty preceptor for this patient encounter was physically present during the encounter and was fully available. All aspects of the patient interview, examination, medical decision making process, and medical care plan development were reviewed and approved by the faculty preceptor. The faculty preceptor is aware and concurs with the plan as stated in the body of this note and will a ttest to such by his/her cosignature. ATTENDING NOTE Patient was seen and examined by me this morning with the residents. Agree with the above assessment and plan IVAN SIDDIQUI D.O. Oct 26, 2019 19:32 MARIELA PANDYA MD Oct 27, 2019 11:31
[2019-10-26] MEDS: IBUPROFEN 200 MG TAB PO PRN (20:43)
[2019-10-27] VITALS: BP 134/66
[2019-10-27 04:00] VITALS: BP 159/73
[2019-10-27 06:22] LABS: HEMOGLOBIN 13.2 g/dl (12.0-15.5); MEAN CORPUSCULAR HEMOGLOBIN 30.9 pg (27.0-33.0); MEAN CORPUSCULAR HGB CONC 31.4 g/dl (32.0-36.5); MEAN CORPUSCULAR VOLUME 98.4 fl (80.0-96.0); PLATELET COUNT, AUTOMATED 142 10^3/uL (150-450); RED BLOOD COUNT 4.27 10^6/uL (4.00-5.40); WHITE BLOOD COUNT 5.7 10^3/uL (4.0-10.0)
[2019-10-27 06:50] LABS: CALCIUM LEVEL 8.4 MG/DL (8.8-10.2); CREATININE FOR GFR 0.95 MG/DL (0.55-1.30); GLOMERULAR FILTRATION RATE 59.1 (>32); POTASSIUM SERUM 4.2 MEQ/L (3.5-5.1)
[2019-10-27 08:00] VITALS: BP 155/74
[2019-10-27 08:13] VITALS: BP 155/74
[2019-10-27] MEDS: amLODIPine 5 MG TAB PO SCH (08:13)
[2019-10-27] MEDS: OMEPRAZOLE 20 MG CAP PO SCH (08:13)
[2019-10-27] MEDS: APIXABAN 5 MG TAB (ELIQUIS) PO SCH (08:14)
[2019-10-27] MEDS: POTASSIUM CHLORIDE 10 MEQ SR TABLET PO SCH (08:14)
[2019-10-27] MEDS ORDERED: AMLO5TAB6 PO (11:25)
[2019-10-27 12:00] VITALS: BP 147/96
[2019-10-27] MEDS: ACETAMINOPHEN TAB 650MG DOSE (2X325MG) PO PRN (12:26)
--- NOTE | 2019-10-27 17:47 | DS.PDOC ---
Discharge Summary General Date of Admission Oct 23, 2019 at 12:50 Date of Discharge 10/27/19 Discharge Summary Chief complaints Headache Right lower extremity edema DISCHARGE DIAGNOSES: 1. Headache. 2. Right lower extremity edema, chronic deep vein thrombosis (DVT) has beenruled out. 3. Chronic kidney disease stage III. 4. Lymphedema in bilateral lower extremities. 5. Hypertension. 6. 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 History of present illness and Hospital course This is an 83-year-old female who presented to the emergency room with complaints of headache, unable to sleep, described as frontal headache without any radiation, 10 out of 10 in severity. No changes in vision, nausea or vomiting. No aura. Denies history of migraines. CT of the head was unremarkable without acute abnormality. The patient denies any lighthea dedness,dizziness or palpitations. The patient was given intravenous fluid and Toradol with resolution of her symptoms. The patient has no neurological deficits.Emergency room evaluated the patient's bilateral lower extremities and noted right lower extremity edema greater than the left and had called the hospitalist to admit for right lower extremity cellulitis. On admission, the patient had no erythema, tenderness or increased warmth of the right lower extremity. The patient states that she has had the edema for several years, which has not changed. Dopplers of the right lower extremity showed no deep vein thrombosis(DVT). She is on chronic Eliquis for left lower extremity DVT in Jan. X-ray showed no fracture or dislocation. The patient was admitted for treatment of headache. She was felt to have chronic lymphedema of the right lower extremity with no DVT or acute cellulitic changes. No antibiotics were given.She was afebrile with normal white count. C-reactive protein was 0.42. The patient has no temporal tenderness and headache had resolved. The patient was everted with the PT, OT as well as discussion with the family was done and eventually the decision was made that she will be benefited from going home with home health with PT, OT. The family understands the patient is clinically stable for discharge. PHYSICAL EXAMINATION: GENERAL: Awake, alert, oriented to person, place and time. Answering questions appropriately. No temporal tenderness. No jugular venous distention (JVD) or thyromegaly. No cervical lymphadenopathy. Neck is supple with no thyromegaly. LUNGS: Clear to auscultation. No wheezing, rales or rhonchi. Air entry is equal bilaterally. HEART: S1, S2. Sinus rhythm. No murmurs, rubs or gallops. ABDOMEN: Soft, nontender, nondistended. Positive bowel sounds. EXTREMITIES: Right lower extremity greater than left lower extremity 2+ pitting edema bilaterally. Right middle calf nonbleeding ulcer. Chronic venous stasis changes. No erythema. No warmth or tenderness. Lower extremity Doppler bilaterally shows no deep vein thrombosis (DVT) in bilateral lower extremities. Tib-fib x-ray shows degenerative joint disease at the knee joint, no fracture or dislocation, vascular calcifications and soft tissue superiorly edematous. DISCHARGE INSTRUCTIONS: Followup with primary care provider within 5 days of discharge. The patient is to be evaluated for chronic venous insufficiency as an outpatient, elevate right lower extremity on two pillows at all times when sitting or supine. Medications. As per discharge reconciliation medication list Activity as tolerated Diet. 2 g sodium diet Follow-up appointments. PCP in 1 week Condition on discharge. Patient is medically optimized for discharge Discharge disposition: Home Total time spent on this discharge including coordination of care, review of chart documentation and actual contact is around 35 minutes Vital Signs/I&Os Vital Signs Date Time Temp Pulse Resp B/P (MAP) Pulse Ox O2 Delivery O2 Flow Rate FiO2 10/27/19 12:00 99.1 101 20 147/96 (113) 96 Room Air I&O- Last 24 Hours up to 6 AM 10/27/19 05:59 Intake Total 820 ml Output Total 1200 ml Balance -380 ml Laboratory Data Labs 24H Laboratory Tests 2 10/27/19 06:03: Nucleated Red Blood Cells % (auto) 0.0, Anion Gap 8, Glomerular Filtration Rate 59.1, Calcium Level 8.4L CBC/BMP Laboratory Tests 10/27/19 06:03 Microbiology Microbiology 10/26/19 Gram Stain - Final, Resulted 10/26/19 Sputum Culture, Resulted Pending 10/26/19 Blood Culture - Preliminary, Resulted No growth after 24 hours . All specim... 10/26/19 Blood Culture - Preliminary, Resulted No growth after 24 hours . All specim... 10/23/19 Blood Culture - Preliminary, Resulted No Growth after 72 hours. All specime... 10/23/19 Blood Culture - Preliminary, Resulted No Growth after 72 hours. All specime... Discharge Medications Scheduled Amlodipine Besylate (Amlodipine Besylate) 5 Mg Tablet, 5 MG PO DAILY Apixaban (Eliquis) 5 Mg Tablet, 5 MG PO BID, (Reported) Potassium Chloride (Potassium Chloride) 10 Meq Capsule.er, 10 MEQ PO BID, (Reported) Torsemide (Torsemide) 10 Mg Tablet, 10 MG PO TID, (Reported) PCP SWITCHED PT BACK TO TID Scheduled PRN Ibuprofen (Ibuprofen) 200 Mg Tablet, 200 MG PO Q6H PRN for PAIN, (Reported) Allergies Coded Allergies: No Known Allergies (Unverified , 10/23/19) MARIELA PANDYA MD Oct 27, 2019 17:47
== END 2019-10-27 13:57 | disposition home or self-care (01) | DRG 103 ==
LOC: EDBD 09:30 → M ED 09:30 → M ED INP 12:50 → ENRESERVDT 12:59 → ENRESERVTM 12:59 → M MS5PR 14:24 → M PCU 10-24 16:38
PROVIDERS: ADMIT General Practice; ATTEND General Practice
DX: R51 Headache (principal); I87.8 Other specified disorders of veins; I89.0 Lymphedema, not elsewhere classified; N18.3 Chronic kidney disease, stage 3 (moderate); I12.9 Hypertensive chronic kidney disease with stage 1 through stage 4 chronic kidney disease, or unspecified chronic kidney disease; Z86.718 Personal history of other venous thrombosis and embolism; Z90.79 Acquired absence of other genital organ(s); Z98.41 Cataract extraction status, right eye; Z98.42 Cataract extraction status, left eye; Z96.612 Presence of left artificial shoulder joint; Z96.641 Presence of right artificial hip joint; Z87.891 Personal history of nicotine dependence; Z79.01 Long term (current) use of anticoagulants; Z79.899 Other long term (current) drug therapy; R41.0 Disorientation, unspecified; R29.6 Repeated falls; R33.9 Retention of urine, unspecified

== ENCOUNTER 2020-07-30 06:56 | Emergency (ER) | payer MEDICARE, OTHER ==
[~2020-07-30] VITALS: Ht 152.4 cm; Wt 54.5 kg
[~2020-07-30 06:56] MED LIST changes: +ADVI100T PO; +AMLO1TAB24 PO; -AMLO5TAB6 PO; +IBUP-1720 PO; +PANT40TA29 PO; -PANT40TA3 PO
[2020-07-30] MEDS ORDERED: NS 500 ML IV ONE (07:15)
--- NOTE | 2020-07-30 08:44 | REPVR ---
PROCEDURE INFORMATION: Exam: XR Chest, 1 View Exam date and time: 07/30/2020 8:28 AM Age: 89 years old Clinical indication: Other: General weekness; Additional info: Weakness TECHNIQUE: Imaging protocol: XR of the chest Views: 1 view. COMPARISON: [facility] PORTABLE CHEST X-RAY 10/25/2019 8:02 PM FINDINGS: Lungs: Lungs are well aerated. No consolidation. Pleural space: No significant pleural effusions. No pneumothorax. Heart/Mediastinum: Stable cardiomegaly and mediastinal contours. Bones/joints: Bones are stable. Osteopenia. IMPRESSION: No acute abnormalities are identified. Electronically signed by: Tito William On 07/30/2020 08:44:38 AM
[2020-07-30 08:59] LABS: BASO % 0.4 % (0.0-1.0); EOS % 0.8 % (0.0-3.0); LYMPH # 0.3 10^3/uL (1.5-5.0); LYMPH % 13.7 % (24.0-44.0); MEAN CORPUSCULAR HEMOGLOBIN 32.4 pg (27.0-33.0); MEAN CORPUSCULAR VOLUME 104.5 fl (80.0-96.0); MONO # 0.2 10^3/uL (0.0-0.8); MONO % 6.6 % (0.0-5.0); NEUTROPHILS # 1.9 10^3/uL (1.5-8.5); NEUTROPHILS % 78.1 % (36.0-66.0); WHITE BLOOD COUNT 2.4 10^3/uL (4.0-10.0)
--- NOTE | 2020-07-30 09:02 | REPVR ---
PROCEDURE INFORMATION: Exam: CT Head Without Contrast Exam date and time: 07/30/2020 8:13 AM Age: 89 years old Clinical indication: Other: Weakness TECHNIQUE: Imaging protocol: Computed tomography of the head without contrast. Radiation optimization: All CT scans at this facility use at least one of these dose optimization techniques: automated exposure control; mA and/or kV adjustment per patient size (includes targeted exams where dose is matched to clinical indication); or iterative reconstruction. COMPARISON: SR CT Head without contrast 10/23/2019 9:58 AM FINDINGS: Brain: Hypodensity within the periventricular and deep white matter of both cerebral hemispheres, consistent with small vessel ischemic change. Physiologic basal ganglia calcification. No acute intracranial hemorrhage or mass effect. Ventricles and extra-axial CSF spaces are stable in size with moderate central and cortical atrophy. Cerebral ventricles: Ventricles are midline without shift. Bones/joints: Unremarkable. No acute fracture. Paranasal sinuses: Visualized sinuses are unremarkable. No fluid levels. Mastoid air cells: Visualized mastoid air cells are well aerated. Vasculature: Carotid artery calcification. Soft tissues: Unremarkable. IMPRESSION: 1. No evidence of acute intracranial hemorrhage or mass effect. 2. Small vessel ischemic changes and moderate generalized atrophy. Electronically signed by: Tito William On 07/30/2020 09:02:35 AM
[2020-07-30 09:08] LABS: HEMATOCRIT 18.4 % (36.0-47.0); PLATELET COUNT, AUTOMATED 73 10^3/uL (150-450)
[2020-07-30 09:26] LABS: RED BLOOD COUNT 1.76 10^6/uL (4.00-5.40)
--- NOTE | 2020-07-30 09:27 | REPVR ---
PROCEDURE INFORMATION: Exam: CT Cervical Spine Without Contrast Exam date and time: 07/30/2020 8:13 AM Age: 89 years old Clinical indication: Weakness TECHNIQUE: Imaging protocol: Computed tomography images of the cervical spine without contrast. Radiation optimization: All CT scans at this facility use at least one of these dose optimization techniques: automated exposure control; mA and/or kV adjustment per patient size (includes targeted exams where dose is matched to clinical indication); or iterative reconstruction. COMPARISON: CT Spine,cervical w/o contrast 06/13/2019 7:57 PM FINDINGS: Vertebrae: Stable cervical alignment. No significant spondylolisthesis. The bones are diffusely demineralized. Stable multilevel degenerative disc disease/spondylosis, most pronounced at C4-C5, C5-C6 and C6-C7 with disc space narrowing, degenerative endplate changes and endplate osteophyte formation. There is also stable multilevel facet arthrosis and degenerative change involving the atlantoaxial joint. Chronic deformity of the T1 spinous process. No acute fracture. Discs/Spinal canal/Neural foramina: Mild canal stenosis at C4-C5, C5-C6 and C6-C7. Variable degrees of bilateral foraminal narrowing. Soft tissues: Paraspinal soft tissues are unremarkable. No prevertebral swelling. Lungs: Biapical centrilobular pulmonary emphysema. Vasculature: Atherosclerotic vascular calcifications. IMPRESSION: 1. No acute cervical spine fracture or malalignment. 2. Osteopenia and multilevel degenerative change, stable when compared to the prior examination. Electronically signed by: Tito William On 07/30/2020 09:26:22 AM
[2020-07-30 09:45] LABS: HEMOGLOBIN 5.7 g/dl (12.0-15.5)
[2020-07-30 09:50] LABS: BASO % 0.7 % (0.0-1.0); EOS % 0.7 % (0.0-3.0); HEMATOCRIT 42.2 % (36.0-47.0); LYMPH # 0.8 10^3/uL (1.5-5.0); LYMPH % 13.6 % (24.0-44.0); MEAN CORPUSCULAR HEMOGLOBIN 31.2 pg (27.0-33.0); MEAN CORPUSCULAR HGB CONC 31.3 g/dl (32.0-36.5); MEAN CORPUSCULAR VOLUME 99.8 fl (80.0-96.0); MONO # 0.5 10^3/uL (0.0-0.8); MONO % 7.8 % (0.0-5.0); NEUTROPHILS # 4.5 10^3/uL (1.5-8.5); NEUTROPHILS % 76.9 % (36.0-66.0); PLATELET COUNT, AUTOMATED 166 10^3/uL (150-450); RED BLOOD COUNT 4.23 10^6/uL (4.00-5.40); WHITE BLOOD COUNT 5.9 10^3/uL (4.0-10.0)
[2020-07-30 09:54] LABS: HEMOGLOBIN 13.2 g/dl (12.0-15.5)
[2020-07-30 10:35] LABS: ALT/SGPT 14 U/L (12-78); AMYLASE 49 U/L (25-115); BILIRUBIN,DIRECT 0.1 MG/DL (0.0-0.2); BILIRUBIN,TOTAL 0.5 MG/DL (0.2-1.0); BLOOD UREA NITROGEN 18 MG/DL (7-18); CALCIUM LEVEL 8.3 MG/DL (8.8-10.2); CARBON DIOXIDE LEVEL 29 MEQ/L (21-32); CHLORIDE LEVEL 106 MEQ/L (98-107); CK-MB VALUE MASS 2.8 NG/ML (<3.6); CPK CREATINE PHOSPHOKINASE 54 U/L (26-192); CREATININE FOR GFR 1.05 MG/DL (0.55-1.30); GLOMERULAR FILTRATION RATE 52.5 (>32); GLUCOSE, FASTING 100 MG/DL (70-100); LIPASE 159 U/L (73-393); MB/CK RELATIVE INDEX 5.19 (< OR =4); POTASSIUM SERUM 4.1 MEQ/L (3.5-5.1); SODIUM LEVEL 141 MEQ/L (136-145); TOTAL PROTEIN 6.2 GM/DL (6.4-8.2); TROPONIN I < 0.02 NG/ML (< 0.10)
[2020-07-30 11:42] VITALS: BP 146/96
--- NOTE | 2020-07-30 20:51 | ECGEPIP ---
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
== END 2020-07-30 11:47 | disposition home or self-care (01) ==
LOC: M ED 06:56
DX: M62.81 Muscle weakness (generalized) (principal); I67.82 Cerebral ischemia; G31.9 Degenerative disease of nervous system, unspecified; N18.30 Chronic kidney disease, stage 3 unspecified; Z87.891 Personal history of nicotine dependence; M85.88 Other specified disorders of bone density and structure, other site; M50.30 Other cervical disc degeneration, unspecified cervical region; Z79.01 Long term (current) use of anticoagulants; Z79.899 Other long term (current) drug therapy

== ENCOUNTER 2020-10-06 09:03 | Inpatient (IN) | payer MEDICARE, OTHER ==
[~2020-10-06] VITALS: Ht 152.4 cm; Wt 59.0 kg
[2020-10-06] MEDS: MORPHINE 2 MG/ML 1ML VIAL (J2270) IV PRN ×2 (10:27→14:13)
[2020-10-06] MEDS ORDERED: LIDOCAINE 2% MDV 20ML VIAL SC ONE (10:45)
[2020-10-06] MEDS ORDERED: MIDAZOLAM INJ 2MG/2ML VIAL (J2250 PER 1MG) IV STA (10:49)
[2020-10-06] MEDS ORDERED: fentaNYL 100 MCG/2 ML INJECTION (J3010) IV ONE (11:00)
--- NOTE | 2020-10-06 11:01 | REP ---
INDICATION: FALL, INJURY COMPARISON: None. TECHNIQUE: AP, lateral, bilateral oblique views of the left elbow. FINDINGS: Age-related osteopenia and degenerative changes are appreciated. No acute fracture or dislocation identified. Lateral view demonstrates normal position to the anterior and posterior fat pads. IMPRESSION: Osteopenia and degenerative changes. No acute fracture or dislocation appreciated. <Electronically signed by Tito Sexton > 10/06/20 [id number]
--- NOTE | 2020-10-06 11:02 | REP ---
INDICATION: FALL, INJURY COMPARISON: None. TECHNIQUE: AP, lateral, bilateral oblique views left wrist. FINDINGS: Chronic osteopenia and degenerative changes are appreciated. Comminuted Colles' fracture of the distal radius with overlying soft tissue swelling noted. IMPRESSION: Comminuted Colles' fracture of the distal radial metaphysis with overlying swelling. <Electronically signed by Tito Sexton > 10/06/20 [id number]
[2020-10-06] MEDS ORDERED: MIDAZOLAM INJ 2MG/2ML VIAL (J2250 PER 1MG) IV ONE (11:22)
--- NOTE | 2020-10-06 12:58 | REP ---
INDICATION: trauma COMPARISON: 07/30/2020 TECHNIQUE: Axial noncontrast images from the skull base to the thoracic inlet with coronal reformations. This CT examination was performed using the following dose reduction techniques: Automated exposure control, adjustment of mA and/or kv according to the patient's size, and use of iterative reconstruction technique. FINDINGS: Age-related atrophy with periventricular leukomalacia and microvascular ischemic changes are appreciated. The ventricles are relatively symmetric. Eugene-white differentiation is maintained. There is no evidence for acute intracranial hemorrhage, mass/mass effect, pathology or infarction. No extra-axial fluid collection. Calvarium is intact. Paranasal sinuses and mastoid air cells are clear. IMPRESSION: Atrophy and microvascular ischemic changes. No acute intracranial pathology or trauma/injury. <Electronically signed by Tito Sexton > 10/06/20 [id number]
--- NOTE | 2020-10-06 13:00 | REP ---
INDICATION: trauma COMPARISON: 07/30/2020 TECHNIQUE: Axial noncontrast images from the skull base to the thoracic inlet with coronal and sagittal re-formations This CT examination was performed using the following dose reduction techniques: Automated exposure control, adjustment of mA and/or kv according to the patient's size, and use of iterative reconstruction technique. FINDINGS: Age-related osteopenia and advanced multilevel degenerative changes are again noted and essentially stable compared to prior examination. No evidence for acute fracture/compression injury or acute subluxation. Spinal canal is patent. Posterior elements and spinous processes are intact. Paravertebral soft tissues are normal.. IMPRESSION: Stable osteopenia and advanced multilevel degenerative spondylosis. No evidence for acute fracture/compression injury or subluxation. <Electronically signed by Tito Sexton > 10/06/20 [id number]
[2020-10-06 13:43] LABS: BASO % 0.6 % (0.0-1.0); EOS # 0.1 10^3/uL (0.0-0.5); EOS % 0.8 % (0.0-3.0); HEMATOCRIT 42.4 % (36.0-47.0); HEMOGLOBIN 13.5 g/dl (12.0-15.5); LYMPH % 13.8 % (24.0-44.0); MEAN CORPUSCULAR HEMOGLOBIN 31.7 pg (27.0-33.0); MEAN CORPUSCULAR HGB CONC 31.8 g/dl (32.0-36.5); MEAN CORPUSCULAR VOLUME 99.5 fl (80.0-96.0); MONO # 0.8 10^3/uL (0.0-0.8); NEUTROPHILS # 5.3 10^3/uL (1.5-8.5); NEUTROPHILS % 73.5 % (36.0-66.0); PLATELET COUNT, AUTOMATED 213 10^3/uL (150-450); RED BLOOD COUNT 4.26 10^6/uL (4.00-5.40); WHITE BLOOD COUNT 7.2 10^3/uL (4.0-10.0)
[2020-10-06 13:54] LABS: INR 1.09; PROTHROMBIN TIME 14.3 SECONDS (12.5-14.3)
--- NOTE | 2020-10-06 14:01 | REP ---
INDICATION: trauma COMPARISON: 06/13/2019 TECHNIQUE: Frontal view of the pelvis with neutral and frog lateral views of the right hip. FINDINGS: Age-related degenerative changes are appreciated along with stable right hip replacement. No acute fracture or dislocation. IMPRESSION: No acute fracture or dislocation. <Electronically signed by Tito Sexton > 10/06/20 [id number]
[2020-10-06 14:26] LABS: ALBUMIN 3.2 GM/DL (3.2-5.2); ALT/SGPT 24 U/L (12-78); BILIRUBIN,TOTAL 0.6 MG/DL (0.2-1.0); BLOOD UREA NITROGEN 26 MG/DL (7-18); CALCIUM LEVEL 8.6 MG/DL (8.8-10.2); CARBON DIOXIDE LEVEL 32 MEQ/L (21-32); CHLORIDE LEVEL 102 MEQ/L (98-107); CK-MB VALUE MASS 6.7 NG/ML (<3.6); CPK CREATINE PHOSPHOKINASE 249 U/L (26-192); CREATININE FOR GFR 1.42 MG/DL (0.55-1.30); GLOMERULAR FILTRATION RATE 37.1 (>32); GLUCOSE, FASTING 99 MG/DL (70-100); MB/CK RELATIVE INDEX 2.69 (< OR =4); POTASSIUM SERUM 4.3 MEQ/L (3.5-5.1); SODIUM LEVEL 140 MEQ/L (136-145); TOTAL PROTEIN 6.4 GM/DL (6.4-8.2); TROPONIN I < 0.02 NG/ML (< 0.10)
[2020-10-06 14:59] LABS: RSV AMPLIFICATION NEGATIVE (NEGATIVE)
--- NOTE | 2020-10-06 15:20 | REP ---
INDICATION: syncope COMPARISON: 07/30/2020 TECHNIQUE: Portable AP view of the chest FINDINGS: The mediastinum and cardiac silhouette are stable and within normal limits for portable technique. The lung mills demonstrate stable chronic interstitial changes without acute consolidation, effusion, or pneumothorax. Skeletal structures are intact. IMPRESSION: Chronic changes. No focal consolidation or effusion. <Electronically signed by Tito Sexton > 10/06/20 [id number]
--- NOTE | 2020-10-06 15:51 | ECGEPIP ---
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
[2020-10-06 18:25] VITALS: BP 139/77
[2020-10-06 20:00] VITALS: BP 152/72
[2020-10-06 21:47] LABS: CK-MB VALUE MASS 5.6 NG/ML (<3.6); CPK CREATINE PHOSPHOKINASE 347 U/L (26-192); MB/CK RELATIVE INDEX 1.61 (< OR =4); TROPONIN I < 0.02 NG/ML (< 0.10)
[2020-10-06] MEDS: POTASSIUM CHLORIDE 10 MEQ SR TABLET PO SCH (21:56)
[2020-10-06] MEDS: APIXABAN 5 MG TAB (ELIQUIS) PO SCH (21:56)
[2020-10-06] MEDS: TORSEMIDE 10 MG TABLET PO SCH (21:57)
[2020-10-07] VITALS: BP 139/81
[2020-10-07] MEDS: MORPHINE 2 MG/ML 1ML VIAL (J2270) IV PRN ×3 (03:31→21:03)
[2020-10-07 04:00] VITALS: BP 138/67
[2020-10-07 06:42] LABS: HEMATOCRIT 40.9 % (36.0-47.0); HEMOGLOBIN 12.7 g/dl (12.0-15.5); MEAN CORPUSCULAR HEMOGLOBIN 31.1 pg (27.0-33.0); MEAN CORPUSCULAR HGB CONC 31.1 g/dl (32.0-36.5); MEAN CORPUSCULAR VOLUME 100.2 fl (80.0-96.0); PLATELET COUNT, AUTOMATED 207 10^3/uL (150-450); RED BLOOD COUNT 4.08 10^6/uL (4.00-5.40); WHITE BLOOD COUNT 8.3 10^3/uL (4.0-10.0)
[2020-10-07 07:00] LABS: CALCIUM LEVEL 8.1 MG/DL (8.8-10.2); CK-MB VALUE MASS 2.1 NG/ML (<3.6); CREATININE FOR GFR 1.31 MG/DL (0.55-1.30); GLOMERULAR FILTRATION RATE 40.7 (>32); MB/CK RELATIVE INDEX 0.64 (< OR =4); POTASSIUM SERUM 4.3 MEQ/L (3.5-5.1); TROPONIN I 0.02 NG/ML (< 0.10)
--- NOTE | 2020-10-07 07:51 | IPNPDOC ---
Text Note Date of Service The patient was seen on 10/07/20. NOTE Subjective: Patient was seen and examined this morning at bedside. Patient could not give me much history and reply appropriately to my questions. She appears to have advanced dementia. She is able to answer some basic yes/no questions. Endorses she felt at home but doesn't think she passed out which is contrary to what the daughter said which is that she found her passed out on the floor. She is reviewed. No acute overnight events reported. Objective: Constitutional: in no apparent distress. Awake. No she is in the hospital and knows this September. ENT: Sclera are clear. Mucosa is moist. Respiratory: Lungs CTA bilaterally with decreased breath sounds. No respira tory distress. No use of accessory muscles. Cardiovascular: RRR S1 and S2 are normal, 1/6 systolic murmur. Gastrointestinal: Abdomen is soft, non distended, non tender, BS present. Musculoskeletal: Cast on the left wrist. Bilaterally lower extremities appearance of chronic venous stasis dermatitis. +1 nonpitting peripheral edema right leg more than left. Mental Status: A&O 1-2 Skin: Warm, dry Assessment/plan: 89-year-old female history of dementia brought into hospital by her daughter after unwitnessed fall at home. Imaging showed a comminuted colles fracture distal radius left wrist. This was evaluated by orthopedic surgery in the ED Dr. Muñiz who reduced and casted it. # L wrist Colles fx: Ortho Dr Muñiz reduced and casted it. Pain control. Fu clinic Dr Muñiz and PCP. # Syncope vs mechanical fall: history unclear. PT/OT. No events on tele. Cardiac enzymes negative. Orthostats. Fu UA. # HERNÁN: creatinine 1.42 on admit and is downtrending. Encourage PO fluid intake. IVF NS 1 bag then re-evaluate. # Hx venous stasis and hx DVT: Continue eliquis 5BID, torsemide, potassium. Changes appear chronic, I do not suspect overlying cellulitis at this time. Fu Duplex b/l LE. # Advanced dementia: FPS for placement. FU PCP. B12/folate/TSH. # DVT prophylaxis: Shahzad Rey Hospitalist Kelechi CH, I+O VSKelechi, I+O Laboratory Tests 10/06/20 13:16 10/07/20 05:56 Vital Signs Date Time Temp Pulse Resp B/P (MAP) Pulse Ox O2 Delivery O2 Flow Rate FiO2 10/07/20 04:00 99.2 124 20 138/67 (90) 91 Room Air 10/06/20 15:31 2.0 I&O- Last 24 Hours up to 6 AM 10/07/20 06:00 Intake Total 0 ml Output Total 250 ml Balance -250 ml TRUDY REY MD Oct 07, 2020 07:51
[2020-10-07 08:00] VITALS: BP 130/60
--- NOTE | 2020-10-07 08:29 | HPE ---
HISTORY AND PHYSICAL DATE OF ADMISSION: 10/06/2020 CHIEF COMPLAINT: Syncope. HISTORY OF PRESENT ILLNESS: Ya Anton is an 89-year-old with dementia brought by daughter to the Emergency Room. She apparently had fallen and was found on the floor, apparently fell perhaps at 1:00 or 2:00 in the morning. The patient said she fell. Daughter thought that she was unresponsive upon finding her. The daughter was not there when I examined the patient and the patient cannot give me any other constructive history. The history above was obtained by the Emergency Room physician. Per the ER physician, the patient has dementia and is getting increasingly more difficult to care for at home and apparently placement is being considered by the daughter. PAST HISTORY: 1. 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 2. Stage III chronic kidney disease. 3. Hypertensive heart disease. 4. History of deep venous thrombosis (DVT) left lower extremity January 2019. 5. Dislocated her left shoulder in 2017. 6. She has a left wrist fracture from this fall, and it was reduced and casted in the Emergency Room by Dr. Muñiz from orthopedics. PAST SURGICAL HISTORY: 1. Right hip arthroplasty. 2. Status post hysterectomy. 3. Status post left shoulder arthroplasty. 4. Status post left hip surgery. 5. Status post bilateral cataract extraction. 6. Status post venous stripping. SOCIAL HISTORY: Quit smoking about five years ago. No alcohol or drug use. FAMILY HISTORY: Noncontributory for her age. MEDICATIONS: - Eliquis 5 mg twice a day - Torsemide 20 mg twice a day - Potassium chloride 10 mEq twice a day ALLERGIES: None known. REVIEW OF SYSTEMS: Difficult to obtain. The patient denies chest pain, shortness of breath, dizziness. PHYSICAL EXAMINATION: Vital signs: Blood pressure 162/85, pulse of 100, respiratory rate 18, 99% O2 saturation on 2 liters. General appearance: She is alert. She is conversant. Per nurse she knows location, month and decade. She was having a lot of pain in her wrist when I saw her. Per ER physician she has received some Morphine as well as Versed and was having a little bit of confusion after that. HEENT: Head is normocephalic, atraumatic. Pupils equal, round, reactive to light. Pharynx is benign. Neck: No masses. No thyromegaly. No carotid bruits. Lungs: Clear. Decreased breath sounds. Heart: Regular rate and rhythm. A 1/6 systolic ejection murmur. Abdomen: Soft, nontender. No masses. Extremities: 1+ peripheral edema. Venous stasis dermatitis. The right leg was more affected that the left. It is brawny edema and looks like it has been there a long time. Most of it is decreased in the feet probably from the edema. Her left wrist is casted and right upper extremity is unremarkable. Lower extremities are otherwise unremarkable. Moves arms and legs with equal strength. IMAGING: Imaging studies show a comminuted Colles fracture distal radius, left wrist. Left elbow x-ray showed no fracture. CT of the head showed age-related atrophy. No hemorrhage or acute finding. Cervical spine x-ray showed age-related changes. Chest x-ray showed no active disease. X-ray of the pelvis is unremarkable. LABS: White count 7.2, hemoglobin 13.5, platelets 213. Sodium 140, potassium 4.3, BUN 26, creatinine 1.4, glucose 99. IMPRESSION AND PLAN: 1. Syncope. Etiology is unknown. History is hard to come by in this case. She will be watched on telemetry for 24-48 hours. Cardiac enzymes have been ordered. Physical therapy has been ordered as well as orthostatics tomorrow morning. 2. Left wrist fracture, already reduced and placed in a cast by orthopedics. Analgesics have been ordered. 3. History of venous stasis problems as well as a remote history of DVT. Continue her Eliquis 5 mg twice a day, diuretics and potassium. 4. Dementia. I assume this is being worked up by her primary care provider. I ordered B12, folate, free T4, TSH for completeness sake. PFS will need to get involved if placement is indeed being pursued.
[2020-10-07] MEDS: APIXABAN 5 MG TAB (ELIQUIS) PO SCH ×2 (09:45→20:46)
[2020-10-07] MEDS: POTASSIUM CHLORIDE 10 MEQ SR TABLET PO SCH ×2 (09:46→20:45)
[2020-10-07] MEDS: TORSEMIDE 10 MG TABLET PO SCH ×2 (09:46→16:23)
[2020-10-07] MEDS ORDERED: NS 1,000 ML IV SCH (10:30)
[2020-10-07 10:42] LABS: FREE T4 1.41 NG/DL (0.76-1.46); THYROID STIMULATING HORMONE 1.36 uIU/ML (0.358-3.740)
--- NOTE | 2020-10-07 11:00 | REP ---
INDICATION: LE edema R>L COMPARISON: None. TECHNIQUE: Eugene scale and color Doppler evaluation of the bilateral lower extremities using linear high frequency transducer. FINDINGS: Ultrasound examination of the right and left lower extremity deep venous structures from the common femoral vein to the popliteal vein demonstrates normal compressibility flow and wave patterns in response to respiration and augmentation. There is no evidence for deep venous thrombosis. IMPRESSION: No evidence for deep venous thrombosis. <Electronically signed by Tito Sexton > 10/07/20 1051
[2020-10-07 12:00] VITALS: BP 127/60
[2020-10-07 15:45] LABS: APPEARANCE, URINE CLEAR (CLEAR); BACTERIA, URINE AUTO NEGATIVE (NEGATIVE); BILIRUBIN, URINE AUTO NEGATIVE (NEGATIVE); BLOOD, URINE BLOOD 1+ (NEGATIVE); COLOR, URINE STRAW (YELLOW); GLUCOSE, URINE (UA) AUTO NEGATIVE (NEGATIVE); KETONE, URINE AUTO NEGATIVE (NEGATIVE); LEUKOCYTE ESTERASE, URINE AUTO NEGATIVE (NEGATIVE); NITRITE, URINE AUTO NEGATIVE (NEGATIVE); PROTEIN, URINE AUTO NEGATIVE (NEGATIVE); RBC, URINE AUTO 4 /HPF (0-3); SPECIFIC GRAVITY URINE AUTO 1.005 (1.002-1.035); SQUAMOUS EPITHELIAL CELL UR AU 0 /HPF (0-6); UROBILINOGEN, URINE AUTO 0.2 mg/dL (0.0-2.0); WBC, URINE AUTO 0 /HPF (0-3)
[2020-10-07 16:00] VITALS: BP 142/63
[2020-10-07 20:00] VITALS: BP 121/60
[2020-10-08] VITALS: BP 160/68
[2020-10-08 01:01] VITALS: BP 130/60
[2020-10-08 04:00] VITALS: BP 149/66
[2020-10-08] MEDS: MORPHINE 2 MG/ML 1ML VIAL (J2270) IV PRN (05:08)
[2020-10-08 06:12] LABS: HEMATOCRIT 38.8 % (36.0-47.0); HEMOGLOBIN 12.2 g/dl (12.0-15.5); MEAN CORPUSCULAR HEMOGLOBIN 31.9 pg (27.0-33.0); MEAN CORPUSCULAR HGB CONC 31.4 g/dl (32.0-36.5); MEAN CORPUSCULAR VOLUME 101.3 fl (80.0-96.0); PLATELET COUNT, AUTOMATED 195 10^3/uL (150-450); RED BLOOD COUNT 3.83 10^6/uL (4.00-5.40); WHITE BLOOD COUNT 7.1 10^3/uL (4.0-10.0)
[2020-10-08 06:35] LABS: CREATININE FOR GFR 1.16 MG/DL (0.55-1.30); GLOMERULAR FILTRATION RATE 46.8 (>32); POTASSIUM SERUM 3.8 MEQ/L (3.5-5.1)
--- NOTE | 2020-10-08 07:38 | IPNPDOC ---
Text Note Date of Service The patient was seen on 10/08/20. NOTE Subjective: Seen and examined this morning at bedside. No complaints this morning. Denies being in any pain. No acute overnight events. Objective: Constitutional: in no apparent distress. Awake. No she is in the hospital and knows this September. ENT: Sclera are clear. Mucosa is moist. Respiratory: Lungs CTA bilaterally with decreased breath sounds. No respiratory distress. No use of accessory muscles. Cardiovascular: RRR S1 and S2 are normal, 1/6 systolic murmur. Gastrointestinal: Abdomen is soft, non distended, non tender, BS present. Musculoskeletal: Cast on the left wrist. Bilaterally lower extremities appearance of chronic venous stasis dermatitis. +1 nonpitting peripheral edema right leg more than left. Homans negative. Mental Status: A&O 1-2 Skin: Warm, dry Assessment/plan: 89-year-old female history of dementia brought into hospital by her daughter after unwitnessed fall at home. Imaging showed a comminuted colles fracture distal radius left wrist. This was evaluated by orthopedic surgery in the ED Dr. Muñiz who reduced and casted it. # L wrist Colles fx: Ortho Dr Muñiz reduced and casted it. Pain control. Fu clinic Dr Muñiz and PCP. # Syncope vs mechanical fall: history unclear. PT/OT. Cardiac enzymes negative. Orthostats not possible patient not cooperating with nurse to stand up. UA ok. Fu PCP after discharge. # HERNÁN: creatinine 1.42 on admit, resolved with IVFs. Encourage PO fluid intake. # Hx venous stasis and hx DVT: Continue eliquis 5BID, torsemide, potassium. Changes appear chronic, I do not suspect overlying cellulitis at this time. Duplex b/l LE shows no DVT. # Advanced dementia: FPS for placement. FU PCP. TSH ok. # DVT prophylaxis: Eliquis Dispo: FPS for placement Yousef Hospitalist Kelechi CH, I+O Kelechi CH I+O Laboratory Tests 10/08/20 05:35 Vital Signs Date Time Temp Pulse Resp B/P (MAP) Pulse Ox O2 Delivery O2 Flow Rate FiO2 10/08/20 05:19 18 Room Air 10/08/20 04:00 98.9 88 149/66 (93) 90 10/07/20 20:00 2.0 I&O- Last 24 Hours up to 6 AM 10/08/20 06:00 Intake Total 1610 ml Output Total 1525 ml Balance 85 ml TRUDY REY MD Oct 08, 2020 07:38
[2020-10-08 08:00] VITALS: BP 185/88
[2020-10-08 09:03] VITALS: BP 115/70
[2020-10-08] MEDS: POTASSIUM CHLORIDE 10 MEQ SR TABLET PO SCH ×2 (09:35→22:43)
[2020-10-08] MEDS: TORSEMIDE 10 MG TABLET PO SCH ×2 (09:35→17:25)
[2020-10-08] MEDS: APIXABAN 5 MG TAB (ELIQUIS) PO SCH ×2 (09:35→22:43)
--- NOTE | 2020-10-08 23:15 | ECGEPIP ---
[facility] Test Date: 2020-10-08 Pat Name: ERIC PAYAN Department: Room: [place] [address] Gender: Female Alpine Guide: RICH : 1930 Requested By: TRUDY Tong Order Number: [id number] Reading MD: Mehdi Gramajo Measurements Intervals [place] Rate: 89 P: 64 [place]: 152 QRS: 45 QRSD: 83 T: 13 QT: 351 QTc: 429 Interpretive Statements SINUS RHYTHM Similar to tracing done 07-30-20 Electronically Signed on 10-08-2020 23:15:30 EST by Mehdi Gramajo
[2020-10-09 05:30] VITALS: BP 200/110
[2020-10-09 05:46] LABS: BASO % 0.4 % (0.0-1.0); EOS % 1.4 % (0.0-3.0); HEMATOCRIT 41.1 % (36.0-47.0); HEMOGLOBIN 13.4 g/dl (12.0-15.5); LYMPH # 0.3 10^3/uL (1.5-5.0); LYMPH % 9.2 % (24.0-44.0); MEAN CORPUSCULAR HEMOGLOBIN 32.4 pg (27.0-33.0); MEAN CORPUSCULAR HGB CONC 32.6 g/dl (32.0-36.5); MEAN CORPUSCULAR VOLUME 99.3 fl (80.0-96.0); MONO % 0.4 % (0.0-5.0); NEUTROPHILS # 2.5 10^3/uL (1.5-8.5); NEUTROPHILS % 88.2 % (36.0-66.0); PLATELET COUNT, AUTOMATED 198 10^3/uL (150-450); RED BLOOD COUNT 4.14 10^6/uL (4.00-5.40); WHITE BLOOD COUNT 2.8 10^3/uL (4.0-10.0)
[2020-10-09 06:13] LABS: BLOOD UREA NITROGEN 17 MG/DL (7-18); CARBON DIOXIDE LEVEL 29 MEQ/L (21-32); CHLORIDE LEVEL 103 MEQ/L (98-107); CREATININE FOR GFR 1.13 MG/DL (0.55-1.30); GLOMERULAR FILTRATION RATE 48.3 (>32); GLUCOSE, FASTING 102 MG/DL (70-100); SODIUM LEVEL 138 MEQ/L (136-145); TROPONIN I < 0.02 NG/ML (< 0.10)
[2020-10-09 06:45] VITALS: BP 170/82
[2020-10-09 08:16] LABS: APPEARANCE, URINE CLOUDY (CLEAR); BACTERIA, URINE AUTO 1+ (NEGATIVE); BILIRUBIN, URINE AUTO NEGATIVE (NEGATIVE); BLOOD, URINE BLOOD 1+ (NEGATIVE); COLOR, URINE YELLOW (YELLOW); GLUCOSE, URINE (UA) AUTO NEGATIVE (NEGATIVE); KETONE, URINE AUTO NEGATIVE (NEGATIVE); LEUKOCYTE ESTERASE, URINE AUTO 2+ (NEGATIVE); NITRITE, URINE AUTO POSITIVE (NEGATIVE); PROTEIN, URINE AUTO 1+ mg/dL (NEGATIVE); RBC, URINE AUTO 3 /HPF (0-3); SPECIFIC GRAVITY URINE AUTO 1.015 (1.002-1.035); SQUAMOUS EPITHELIAL CELL UR AU 1 /HPF (0-6); URIC ACID CRYSTALS SMALL; WBC, URINE AUTO 7 /HPF (0-3)
--- NOTE | 2020-10-09 08:58 | HPE ---
HISTORY AND PHYSICAL DATE OF ADMISSION: 10/06/2020 Treatment plan, left distal radius fracture. 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 She apparently has baseline dementia. Her health care proxy, I spoke with Tresa Curiel. There was no head injury or obvious loss of consciousness reported by the patient. PAST MEDICAL HISTORY: Although she states that she does not have any medical history, in her chart it does state that she has thrombocytopenia, hypertension, left shoulder joint dislocation, ulnar fracture, right leg DVT, cellulitis right leg. MEDICATIONS INCLUDE: - Eliquis - Potassium chloride - Torsemide ALLERGIES: No known drug allergies. SOCIAL HISTORY: She apparently lives alone with her dog. She does not live with any other people. She apparently lives in a house according to her. PHYSICAL EXAMINATION: This is an 89-year-old female, appears confused at her baseline. She has an obvious deformity and swelling to her left wrist. There is a superficial abrasion on the left elbow but it is moving painlessly. No pain or deformity in the hand. Hand is warm and well perfused. Strong radial pulse. She is moving all her fingers and her thumb. No other obvious injuries. Her vital signs are stable albeit with hypertension at 189/87, pulse rate of 100. She is on room air. Radiographs are reviewed of the wrist and elbow. This shows dorsal angulated with mild comminution distal radius fracture. There is shortening compared to the ulna. ASSESSMENT AND PLAN: This is an 89-year-old female who has a dorsal angulated distal radius fracture. I spoke her health care proxy, Tresa Curiel, on the phone before and after the procedure. I recommend closed reduction and casting which will be performed with fluoro with plaster of Shima cast for 12 weeks' time with repeat radiographs. I recommend rest, ice, elevation, Tylenol for pain control, vitamin C 500 mg by mouth once daily for complex regional pain syndrome prophylaxis. I gave her my office address and phone number and asked her to call in a week's time. The patient apparently may be admitted to the hospital based on failure to cope at home as well with the hospitalist service. PROCEDURE NOTE: I talked to the health care proxy about the pros, cons, risks and benefits of doing nothing versus going ahead with a hematoma block, and closed reduction and casting of the left distal radius fracture. Risks including but not limited to infection, pain symptoms, weakness, damage to internal structures, failure to achieve and maintain closed reduction, cast irritation, cast corbett, risks related to sedation and local anesthetic risks. She understands and wishes to proceed. I had a two person consent over the phone today prior to the procedure. The acute MASTER SCHEDULER automation and controls supervisor administered the patient a very light sedating medication. I performed sterile no touch technique with an alcohol based prep solution allowing this to thoroughly dry before using a 25-gauge needle to inject 7 cc of local Lidocaine 2% anesthetic at the fracture site. She tolerated this well. Upon direct manual manipulation of the fracture. I placed a well padded circumferential plaster of Shima cast with the wrist in neutral 3 point molding, 2 points dorsally. I took mini C-arm based fluoroscopy x-rays in order to confirm proper reduction. Fracture appeared adequate with no obvious angulation or displacement. The cast was allowed to fully harden. Neurovascular status was checked after she had normal sensation. Hand was warm and well perfused. The cast was allowed to fully harden. I did let her health care proxy know after the procedure as well. WALLACE
[2020-10-09] MEDS: APIXABAN 5 MG TAB (ELIQUIS) PO SCH ×2 (09:50→20:33)
[2020-10-09] MEDS: POTASSIUM CHLORIDE 10 MEQ SR TABLET PO SCH ×2 (09:52→20:33)
[2020-10-09] MEDS: TORSEMIDE 10 MG TABLET PO SCH ×2 (09:57→17:23)
[2020-10-09 10:16] LABS: VITAMIN B12 LEVEL 260 PG/ML
[2020-10-09] MEDS ORDERED: FOSFOMYCIN TROMETHAMINE 3 GM POWDER PACKET (MONUROL) PO ONE (12:00)
[2020-10-09 14:00] VITALS: BP 141/86
[2020-10-09] MEDS: ACETAMINOPHEN TAB 650MG DOSE (2X325MG) PO PRN ×3 (15:04→20:33)
[2020-10-09] MEDS ORDERED: VANCOMYCIN HCL 1,000 MG, VIAL MATE ADAPTER 1 EACH in D5W 250 ML IV ONE (22:00)
[2020-10-10 06:00] VITALS: BP 128/60
[2020-10-10] MEDS: POTASSIUM CHLORIDE 10 MEQ SR TABLET PO SCH ×2 (09:10→22:22)
[2020-10-10] MEDS: APIXABAN 5 MG TAB (ELIQUIS) PO SCH ×2 (09:10→22:22)
[2020-10-10] MEDS: TORSEMIDE 10 MG TABLET PO SCH ×2 (09:10→17:42)
[2020-10-10] MEDS: ACETAMINOPHEN TAB 650MG DOSE (2X325MG) PO PRN (09:11)
[2020-10-10] MEDS ORDERED: VANCOMYCIN HCL 750 MG, VIAL MATE ADAPTER 1 EACH in D5W 250 ML IV SCH (21:00)
[2020-10-11 06:00] VITALS: BP 130/72
[2020-10-11 07:52] LABS: CALCIUM LEVEL 8.8 MG/DL (8.8-10.2); CREATININE FOR GFR 1.24 MG/DL (0.55-1.30); GLOMERULAR FILTRATION RATE 43.4 (>32); POTASSIUM SERUM 3.8 MEQ/L (3.5-5.1)
[2020-10-11] MEDS: POTASSIUM CHLORIDE 10 MEQ SR TABLET PO SCH ×2 (08:59→21:35)
[2020-10-11] MEDS: APIXABAN 5 MG TAB (ELIQUIS) PO SCH ×2 (08:59→21:35)
[2020-10-11] MEDS: TORSEMIDE 10 MG TABLET PO SCH ×2 (09:00→17:03)
[2020-10-11] MEDS: ASCORBIC ACID 500 MG TAB PO SCH (13:51)
[2020-10-11] MEDS ORDERED: LevoFLOXacin 500 MG TABLET PO ONE (14:00)
[2020-10-11] MEDS: ACETAMINOPHEN TAB 650MG DOSE (2X325MG) PO PRN (21:36)
[2020-10-12] MEDS: ACETAMINOPHEN TAB 650MG DOSE (2X325MG) PO PRN (05:24)
[2020-10-12 06:00] VITALS: BP 149/62
[2020-10-12] MEDS ORDERED: LevoFLOXacin 250 MG TABLET PO SCH (06:00)
[2020-10-12] MEDS ORDERED: LevoFLOXacin 500 MG TABLET PO SCH (06:00)
[2020-10-12] MEDS: ASCORBIC ACID 500 MG TAB PO SCH (07:48)
[2020-10-12] MEDS: APIXABAN 5 MG TAB (ELIQUIS) PO SCH (07:49)
[2020-10-12] MEDS: POTASSIUM CHLORIDE 10 MEQ SR TABLET PO SCH (07:49)
[2020-10-12] MEDS: TORSEMIDE 10 MG TABLET PO SCH (07:49)
[2020-10-12] MEDS ORDERED: SENOKOT S TAB PO SCH (09:00)
[2020-10-12] MEDS ORDERED: MIRALAX *UNIT DOSE* 17GM PACKET PO PRN (10:45)
[2020-10-12] MEDS ORDERED: LEVO250T12 PO (11:22)
[2020-10-12] MEDS ORDERED: ASCO50TA PO (11:22)
[2020-10-12] MEDS ORDERED: SENN-52 PO (11:22)
--- NOTE | 2020-10-12 14:06 | IPNPDOC ---
Text Note Date of Service The patient was seen on 10/11/20. NOTE Subjective: No complaints this morning. Denies being in any pain. No acute overnight events. Denied any dysuria or abdominal pain. Objective: Vitals : As below. Constitutional: No apparent distress. Awake. Knows that she is in the hospital and knows this September. ENT: Sclera are clear. Mucosa is moist. Respiratory: Lungs CTA bilaterally. No added sounds. Cardiovascular: RRR S1 and S2 are normal, regular heart sounds soft systolic murmur present. Gastrointestinal: Abdomen is soft, non distended, non tender, BS present. Musculoskeletal: Cast on the left wrist. Bilaterally lower extremities appearance of chronic venous stasis dermatitis. Mental Status: A&O 1-2 Skin: Warm, dry Labs and radiology: reviewed. Assessment and plan: 89 year old female with hx of ckd, DVT, dementia, right olecranon # in 2018 had a mechanical fall. She fell backwards but did not hit her head or have any LOC. She was found to have left distal radius fracture. There was no syncopal episode. She had a mechanical fall. Left distal radius fracture S/P closed reduction and casting Tylenol for pain control, vitamin C 500 mg by mouth once daily for complex regional pain syndrome prophylaxis. Asymptomatic bacteuria. Urine culture with Ecoli No fever or dysuria. will give levofloxacin. Blood culture positive with Enterobacter cloacae 1/2 bottles. had 2 doses of vancomycin will give Levofloxacin. 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 H/O DVT in january 2019 continue Shahzad CKD stage 3 will continue to monitor Chronic venous stasis and stasis ulcer on the right continue torsemide. VS,Fishbone, I+O VS, Fishbone, I+O Laboratory Tests 10/11/20 07:17 Vital Signs Date Time Temp Pulse Resp B/P (MAP) Pulse Ox O2 Delivery O2 Flow Rate FiO2 10/11/20 06:00 97.6 94 18 130/72 (91) 96 Room Air 10/07/20 20:00 2.0 I&O- Last 24 Hours up to 6 AM 10/11/20 06:00 Intake Total 1475 ml Balance 1475 ml FARZANEH DUGGAN MD Oct 11, 2020 13:21
--- NOTE | 2020-10-12 14:15 | DS.PDOC ---
Discharge Summary General Date of Admission Oct 07, 2020 at 07:48 Date of Discharge 10/12/20 Discharge Summary PROCEDURES PERFORMED DURING STAY: [None]. DISCHARGE DIAGNOSES: Left Distal radius fracture Poly microbial UTI Bacteremia Dementia CKD stage 3 H/O DVT Chronic venous stasis with bilateral venous stasis ulcers. COMPLICATIONS/CHIEF COMPLAINT: Syncope. HOSPITAL COURSE: 89 year old female with hx of ckd, DVT, dementia, right olecranon # in 2018 had a mechanical fall. She fell backwards but did not hit her head or have any LOC. She was found to have left distal radius fracture. There was no syncopal episode. She had a mechanical fall. She had a dirty UA on admission though was asymptomatic. Urine culture with multiple organisms. However she also had blood culture positive so i Have decided to treat her for UTi and bacteremia. Left distal radius fracture S/P closed reduction and casting Tylenol for pain control, vitamin C 500 mg by mouth once daily for complex regional pain syndrome prophylaxis. UTI Urine culture with Ecoli, Enterobacter Cloacae and Proteus. No fever or dysuria. levofloxacin 250 mg daily Blood culture positive with Enterobacter cloacae 1/2 bottles. had 2 doses of vancomycin will give Levofloxacin. 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 H/O DVT in january 2019 continue Eliquis CKD stage 3 will continue to monitor Chronic venous stasis and stasis ulcer on the right continue torsemide. DISCHARGE MEDICATIONS: Please see below. ALLERGIES: Please see below. PHYSICAL EXAMINATION ON DISCHARGE: VITAL SIGNS: Please see below. General: No apparent distress. Awake. Knows that she is in the hospital and knows this September. ENT: Sclera are clear. Mucosa is moist. Respiratory: Lungs CTA bilaterally. No added sounds. Cardiovascular: RRR S1 and S2 are normal, regular heart sounds soft systolic murmur present. Gastrointestinal: Abdomen is soft, non distended, non tender, BS present. Musculoskeletal: Cast on the left wrist. Bilaterally lower extremities appearance of chronic venous stasis dermatitis and dry superficial ulcers. Mental Status: A&O 1-2 Skin: Warm, dry LABORATORY DATA: Please see below. ACTIVITY: [As tolerated]. DIET: As tolerated DISPOSITION: 62 D/T Rehab Facility. DISCHARGE INSTRUCTIONS: Follow up with Ortho in 2 weeks Follow up final urine and blood cultures. DISCHARGE CONDITION: [Stable]. TIME SPENT ON DISCHARGE: 35 minutes. Vital Signs/I&Os Vital Signs Date Time Temp Pulse Resp B/P (MAP) Pulse Ox O2 Delivery O2 Flow Rate FiO2 10/12/20 06:00 97.5 76 18 149/62 (91) 96 Room Air 10/07/20 20:00 2.0 I&O- Last 24 Hours up to 6 AM 10/12/20 07:00 Intake Total 590 ml Output Total 0 ml Balance 590 ml Laboratory Data Labs 24H Laboratory Tests 2 10/12/20 10:52: Coronavirus (COVID-19)(PCR) NEGATIVE Microbiology Microbiology 10/09/20 Blood Culture - Preliminary, Resulted No Growth after 48 hours. All Specime... 10/09/20 Urine Culture - Preliminary, Resulted Escherichia Coli Proteus Mirabilis Enterococcus Faecalis 10/09/20 Blood Culture - Final, Complete Enterobacter Cloacae Complex Discharge Medications Scheduled Apixaban (Eliquis) 5 Mg Tablet, 5 MG PO BID, (Reported) Ascorbic Acid (Vitamin C) 500 Mg Tablet, 500 MG PO DAILY Levofloxacin (Levofloxacin) 250 Mg Tablet, 250 MG PO DAILY@06 Potassium Chloride (Potassium Chloride) 10 Meq Capsule.er, 10 MEQ PO BID, (Reported) Sennosides/Docusate Sodium (Senna Plus Tablet) 1 Each Tablet, 1 TAB PO BID Torsemide (Torsemide) 10 Mg Tablet, 20 MG PO BID, (Reported) Allergies Coded Allergies: No Known Allergies (Unverified , 10/23/19) FARZANEH DUGGAN MD Oct 12, 2020 14:15
== END 2020-10-12 13:10 | DRG 563 ==
LOC: EDBD 09:03 → M ED 09:03 → M ED INP 09:04 → ENRESERV 16:10 → M PCU 18:26 → OBSVTOIN 10-07 07:48 → M MS5PR 10-08 23:12
PROVIDERS: ADMIT Internal Medicine Nephrology; ATTEND Internal Medicine Nephrology
DX: S52.532A Colles' fracture of left radius, initial encounter for closed fracture (principal); N17.9 Acute kidney failure, unspecified; N39.0 Urinary tract infection, site not specified; F03.90 Unspecified dementia, unspecified severity, without behavioral disturbance, psychotic disturbance, mood disturbance, and anxiety; N18.30 Chronic kidney disease, stage 3 unspecified; I87.8 Other specified disorders of veins; B96.29 Other Escherichia coli [E. coli] as the cause of diseases classified elsewhere; Z86.718 Personal history of other venous thrombosis and embolism; Z79.899 Other long term (current) drug therapy; W18.30XA Fall on same level, unspecified, initial encounter; Y92.009 Unspecified place in unspecified non-institutional (private) residence as the place of occurrence of the external cause; Z96.641 Presence of right artificial hip joint; I12.9 Hypertensive chronic kidney disease with stage 1 through stage 4 chronic kidney disease, or unspecified chronic kidney disease; Z87.891 Personal history of nicotine dependence; Z79.01 Long term (current) use of anticoagulants

== ENCOUNTER → 2020-10-18 | Outpatient (REF) ==
[~2020-10-18] MED LIST changes: +ASCO50TA PO; +LEVO250T12 PO; +SENN-52 PO
== END ==
LOC: SKLAB2 07:00
PROVIDERS: ATTEND Internal Medicine
DX: Z11.52 Encounter for screening for COVID-19 (principal)

== ENCOUNTER → 2020-10-24 | Outpatient (CLI) | payer MEDICARE, OTHER ==
--- NOTE | 2020-10-24 11:04 | REP ---
INDICATION: RECHECK. COMPARISON: None. TECHNIQUE: AP and lateral views left wrist FINDINGS: Evaluation is limited due to overlying cast material. There is evidence for fracture involving the distal radial metaphysis with posterior angulation and suspected ulnar styloid fracture. IMPRESSION: Transverse fracture of the distal radial metaphysis and suspected ulnar styloid fracture. <Electronically signed by Tito Sexton > 10/24/20 1100
== END ==
LOC: M SOG 10:30
PROVIDERS: ATTEND Orthopaedic Surgery Sports Medicine
DX: S52.552D Other extraarticular fracture of lower end of left radius, subsequent encounter for closed fracture with routine healing (principal)

== ENCOUNTER → 2020-10-25 | Outpatient (REF) | LOC: SKLAB3 07:00 | PROVIDERS: ATTEND Internal Medicine | DX: Z11.52 Encounter for screening for COVID-19 (principal) ==

== ENCOUNTER → 2020-10-31 | Outpatient (REF) | payer MEDICARE, OTHER ==
[2020-10-31 10:54] LABS: CALCIUM LEVEL 9.1 MG/DL (8.8-10.2); CREATININE FOR GFR 1.73 MG/DL (0.55-1.30); GLOMERULAR FILTRATION RATE 29.5 (>32); POTASSIUM SERUM 3.5 MEQ/L (3.5-5.1)
== END ==
LOC: SKLAB3 07:00
PROVIDERS: ATTEND Internal Medicine
DX: I73.9 Peripheral vascular disease, unspecified (principal)

== ENCOUNTER → 2020-11-01 | Outpatient (REF) | payer MEDICARE, OTHER | LOC: SKLAB3 07:00 | PROVIDERS: ATTEND Internal Medicine | DX: Z20.822 Contact with and (suspected) exposure to COVID-19 (principal) ==

== ENCOUNTER → 2020-11-08 | Outpatient (REF) | payer MEDICARE, OTHER | LOC: SKLAB3 14:55 | PROVIDERS: ATTEND Internal Medicine | DX: Z20.822 Contact with and (suspected) exposure to COVID-19 (principal) ==

== ENCOUNTER → 2020-11-14 | Outpatient (CLI) | payer MEDICARE, OTHER ==
--- NOTE | 2020-11-14 12:16 | REP ---
INDICATION: F/U FX. COMPARISON: Comparison radiographs October 24, 2020 and October 06, 2020.. TECHNIQUE: AP and lateral views. FINDINGS: AP and lateral views of the left wrist demonstrate a a impacted healing fracture with sclerosis in the distal radial metaphysis. There is apex volar angulation and some dorsal displacement. There is chondrocalcinosis at the wrist and positive ulnar variance is visible. Osteoarthritis and diffuse osteoporosis are seen. IMPRESSION: Impacted angulated and somewhat dorsally displaced fracture of the distal radius. Diffuse osteopenia. Wrist osteoarthritis and chondrocalcinosis. Positive ulnar variance. <Electronically signed by Calin Elise > 11/14/20 [id number]
== END ==
LOC: M SOG 09:19
PROVIDERS: ATTEND Orthopaedic Surgery Sports Medicine
DX: S52.552D Other extraarticular fracture of lower end of left radius, subsequent encounter for closed fracture with routine healing (principal); X58.XXXD Exposure to other specified factors, subsequent encounter

== ENCOUNTER → 2020-11-15 | Outpatient (REF) | payer MEDICARE, OTHER | LOC: SKLAB3 07:00 | PROVIDERS: ATTEND Internal Medicine | DX: Z11.52 Encounter for screening for COVID-19 (principal) ==

== ENCOUNTER → 2020-11-22 | Outpatient (REF) | payer MEDICARE, OTHER | LOC: SKLAB3 11:26 | PROVIDERS: ATTEND Internal Medicine | DX: Z20.822 Contact with and (suspected) exposure to COVID-19 (principal) ==

== ENCOUNTER → 2020-11-29 | Outpatient (REF) | payer MEDICARE, OTHER | LOC: SKLAB3 07:00 | PROVIDERS: ATTEND Internal Medicine | DX: Z20.822 Contact with and (suspected) exposure to COVID-19 (principal) ==

== ENCOUNTER → 2020-12-06 | Outpatient (REF) | payer MEDICARE, OTHER | LOC: SKLAB3 15:07 | PROVIDERS: ATTEND Internal Medicine | DX: Z20.822 Contact with and (suspected) exposure to COVID-19 (principal) ==

== ENCOUNTER → 2020-12-19 | Outpatient (REF) | payer MEDICARE, OTHER ==
[~2020-12-19] MED LIST changes: -PEG1POW PO; +POLY17PO18 PO
[2020-12-19 07:46] LABS: HEMOGLOBIN 13.6 g/dl (12.0-15.5); MEAN CORPUSCULAR HEMOGLOBIN 31.6 pg (27.0-33.0); MEAN CORPUSCULAR HGB CONC 31.6 g/dl (32.0-36.5); PLATELET COUNT, AUTOMATED 201 10^3/uL (150-450)
[2020-12-19 08:25] LABS: ALBUMIN 3.7 GM/DL (3.2-5.2); BILIRUBIN,TOTAL 0.6 MG/DL (0.2-1.0); CALCIUM LEVEL 9.2 MG/DL (8.8-10.2); CREATININE FOR GFR 1.46 MG/DL (0.55-1.30); GLOMERULAR FILTRATION RATE 35.9 (>32); PHOSPHORUS LEVEL 3.6 MG/DL (2.5-4.9); POTASSIUM SERUM 3.9 MEQ/L (3.5-5.1); THYROID STIMULATING HORMONE 0.906 uIU/ML (0.358-3.740); TOTAL PROTEIN 6.8 GM/DL (6.4-8.2)
[2020-12-19 10:12] LABS: PTH INTACT 52.3 PG/ML (18.5-88.0)
[2020-12-19 11:17] LABS: TOTAL 25(OH) VITAMIN D 37.8 NG/ML (30.0-100.0)
== END ==
LOC: SKLAB3 07:00
PROVIDERS: ATTEND Internal Medicine
DX: N18.9 Chronic kidney disease, unspecified (principal); Z79.899 Other long term (current) drug therapy

== ENCOUNTER → 2020-12-20 | Outpatient (REF) | payer MEDICARE, OTHER | LOC: SKLAB3 08:00 | PROVIDERS: ATTEND Internal Medicine | DX: Z11.52 Encounter for screening for COVID-19 (principal) ==

== ENCOUNTER → 2020-12-26 | Outpatient (CLI) | payer MEDICARE, OTHER ==
--- NOTE | 2020-12-26 09:17 | REP ---
INDICATION: F/U FX. COMPARISON: 10/06/2020, 10/24/2020 and 11/14/2020 TECHNIQUE: AP and lateral views FINDINGS: There is a healing impacted Colles fracture of the distal radius in satisfactory position and alignment. There is diffuse demineralization. There is osteoarthritis at the thumb CMC articulation. IMPRESSION: Healing impacted Colles fracture of the distal radius in satisfactory position and alignment. Demineralization. Thumb base osteoarthritis. <Electronically signed by Fercho James > 12/26/20 0903
== END ==
LOC: M SOG 08:56
PROVIDERS: ATTEND Orthopaedic Surgery Sports Medicine
DX: S52.552D Other extraarticular fracture of lower end of left radius, subsequent encounter for closed fracture with routine healing (principal)

== ENCOUNTER → 2020-12-27 | Outpatient (REF) | payer MEDICARE, OTHER | LOC: SKLAB3 07:00 | PROVIDERS: ATTEND Internal Medicine | DX: Z20.822 Contact with and (suspected) exposure to COVID-19 (principal) ==

== ENCOUNTER → 2021-01-12 | Outpatient (REF) | payer MEDICARE, OTHER | LOC: SKLAB3 08:54 | PROVIDERS: ATTEND Internal Medicine | DX: Z20.822 Contact with and (suspected) exposure to COVID-19 (principal) ==

== ENCOUNTER → 2021-02-27 | Outpatient (REF) | payer MEDICARE, OTHER ==
[~2021-02-27] MED LIST changes: -ACET-908 PO; +ACET-910 PO
== END ==
LOC: SKLAB3 07:00
PROVIDERS: ATTEND Internal Medicine
DX: E03.9 Hypothyroidism, unspecified (principal)